=== PATIENT | female | born 1955 | race Caucasian/White ===

== ENCOUNTER 2023-07-02 14:56 | Emergency (ER) | payer OTHER, SELFPAY ==
[2023-07-02 15:13] VITALS: BP 179/78; PULSE 110; RESP 20; TEMP 36.5; O2SAT 96; BMI 44.3
--- NOTE | 2023-07-02 16:11 | ED.GENADULT ---
HPI - General Adult General Date Seen: 07/02/23 Chief complaint: Abdominal Pain Stated complaint: Pain in lower stomach area, weak Time Seen by Provider: 07/02/23 15:40 History of Present Illness HPI narrative: 68-year-old female who has a past medical history including previous cholecystectomy, hysterectomy, prior bouts of diverticulitis, known periumbilical/ventral/incisional hernia, obesity, presenting to the ER today with her daughter and granddaughter for evaluation of abdominal pain. She has had a symptoms of intermittent abdominal pain and gas and bloating off and on since March. In March she did see her doctor and was put on empiric course of Cipro and Flagyl for possible diverticulitis. She completed 8 days of antibiotics and felt better. She was significantly improved for several days after but since then has been having mild intermittent symptoms of pain. She also has a history of IBS so wonders if some of her pain could be related to that. Since Monday she has had a significant increase in pain. Pain is affecting both of her lower quadrants. She initially felt bloated but now she is having more sharp stabbing pain. She is nauseous and has had multiple episodes of vomiting. No fever but she has had chills. She has got body aches and generalized weakness. No urinary symptoms. Bowel movements have not really been diarrhea or bloody. No known injury. She has a known hernia next or bellybutton but it is not painful or more swollen than normal. Related Data Previous Rx's Medication Instructions Recorded ciprofloxacin HCl 500 mg tablet 500 mg PO BID #28 tabs 07/02/23 (Cipro) ciprofloxacin HCl 500 mg tablet 500 mg PO Q12H #28 tabs 07/02/23 (Cipro) ketorolac 10 mg tablet 10 mg PO Q8H PRN pain #10 tabs 07/02/23 metronidazole 500 mg tablet 500 mg PO BID 14 days #28 tabs 07/02/23 metronidazole 500 mg tablet 500 mg PO Q12H #28 tabs 07/02/23 ondansetron 4 mg disintegrating 4 mg PO Q8H PRN nausea and 07/02/23 tablet vomiting #10 tabs Allergies Allergy/AdvReac Type Severity Reaction Status Date / Time Penicillins Allergy Verified 07/02/23 15:12 PFSH PFSH Social History Non-prescribed substance use: denies use Exam Narrative: Exam Narrative: Constitutional: Appears well-developed and well-nourished. Alert. Conversant. Non toxic. HENT: Head: Atraumatic. Nose: Nose normal. Mouth/Throat: Oral mucosa is clear and moist. no trismus. Pharynx normal. Tonsils symmetric. No tonsillar enlargement, erythema, or exudate. Eyes: Conjunctivae normal. EOM normal. Pupils equal, round, and reactive to light. No scleral icterus. Neck: Normal range of motion. Neck supple. No tracheal deviation present. Cardiovascular: Normal rate, regular rhythm. No gallop. No friction rub. No murmur heard. Symmetric radial artery pulses Pulmonary/Chest: Effort normal. No stridor. No respiratory distress. No wheezes. No rales. No rhonchi . No tenderness. Abdominal: Soft. Bowel sounds normal. No distension. She has a nontender soft mass adjacent to her umbilicus and in the upper portion of her left lower quadrant suspicious for a incisional or possibly umbilical hernia. No exam evidence for incarceration or strangulation.. LLQ and suprapubic> RLQ tenderness. Minimal epigastric tenderness. No right upper quadrant tenderness. Mild left upper quadrant tenderness. No CVA tenderness. No rebound. No guarding. Musculoskeletal: RUE: Normal range of motion. No tenderness. No deformity LUE: Normal range of motion. No tenderness. No deformity RLE: Normal range of motion. No edema. No tenderness. No deformity LLE: Normal range of motion. No edema. No tenderness. No deformity Neurological: Alert and oriented to person, place, and time. Normal strength. CN II-VII intact. No sensory deficit. GCS eye subscore is 4. GCS verbal subscore is 5. GCS motor subscore is 6. Normal coordination Skin: Skin is warm and dry. No rash noted. No pallor. Normal capillary refill. Psychiatric: Normal mood. Normal affect. Const: Vital Signs, click to edit/add: Vital Signs - 24 hr 07/02/23 15:13 Temperature 97.7 F Pulse Rate [Pulse Oximeter] 110 H Respiratory Rate 20 Blood Pressure [Ri ght Forearm] 179/78 H Pulse Oximetry 96 Oxygen Delivery Me thod Room Air Course Vital Signs Vital signs: Initial Vital Signs Temperature 97.7 F 07/02/23 15:13 Temperature Source Temporal Artery Scan 07/02/23 15:13 Pulse Rate 110 H 07/02/23 15:13 Respiratory Rate 20 07/02/23 15:13 Blood Pressure 179/78 H 07/02/23 15:13 Blood Pressure Mean 111 H 07/02/23 15:13 Blood Pressure Position Sitting 07/02/23 15:13 Pulse Oximetry 96 07/02/23 15:13 Oxygen Delivery Method Room Air 07/02/23 15:13 Vital Signs Temperature 97.7 F 07/02/23 15:13 Pulse Rate 110 H 07/02/23 15:13 Respiratory Rate 20 07/02/23 15:13 Blood Pressure 179/78 H 07/02/23 15:13 Pulse Oximetry 96 07/02/23 15:13 Oxygen Delivery Method Room Air 07/02/23 15:13 Temperature 97.7 F 07/02/23 15:13 Pulse Rate 110 H 07/02/23 15:13 Respiratory Rate 20 07/02/23 15:13 Blood Pressure 179/78 H 07/02/23 15:13 Pulse Oximetry 96 07/02/23 15:13 Oxygen Delivery Method Room Air 07/02/23 15:13 Medical Decision Making MDM Narrative Medical decision making narrative: Presented to the Emergency Department with bilateral lower quadrant abdominal pain. The differential diagnosis of abdominal pain includes: Appendicitis, Bowel Obstruction, Ulcer, Ischemia, Cholecystitis, Diverticulitis, Pancreatitis, UTI, kidney stone, Enteritis/Colitis, amongst many other etiologies. Laboratory workup shows mild leukocytosis. Urinalysis reassuring. CT scan confirms acute sigmoid diverticulitis without any evidence for surgical complications such as perforation, abscess, free air, stricture, obstruction. She is hemodynamically stable and pain is improved after treatment here in the ER. With reasonable clinical complaints I think she is safe for management in outpatient setting with oral antibiotics. Will start her back on Cipro and Flagyl. The patient also understands that if they worsen, they should return to the ER right away. I discussed the expected course of the diagnosis and answered the patient's questions. return precautions discussed. Zofran and Toradol for symptomatic relief. Lab Data Labs: Lab Results 07/02/23 07/02/23 Range/Units 16:30 18:07 WBC 13.11 H (4.50-11.00) K/uL RBC 5.30 H (4.00-5.20) m/uL Hgb 14.0 (12.0-16.0) gm/dL Hct 44.6 (33.0-51.0) % MCV 84 (80-100) fL MCH 26 (26-34) pg MCHC 31 L (32-36) gm/dL RDW Coeff of Shawna 14.1 (11.5-15.5) % Plt Count 282 (140-440) K/uL Neut % (Auto) 78.2 H (42.0-72.0) % Lymph % (Auto) 15.0 L (20-44) % [place] % (Auto) 6.0 (0.0-11.0) % Eos % (Auto) 0.4 (0.0-7.0) % Baso % (Auto) 0.2 (0.0-3.0) % Neut # (Auto) 10.30 H (1.7-7.0) K/uL Lymph # (Auto) 2.00 (0.90-2.90) K/uL [place] # (Auto) 0.80 (0.00-0.90) K/UL Eos # (Auto) 0.10 (0.00-0.50) K/uL Baso # (Auto) 0.00 (0.00-0.30) K/uL Abs Immat Gran (auto) 0.00 (0.00-0.30) K/uL Imm/Tot Granulo (auto) 0.2 % Sodium 136 (135-149) mmol/L Potassium 3.8 (3.6-5.1) mmol/L Chloride 103 (96-114) mmol/L Carbon Dioxide 25 (20-32) mmol/L Anion Gap 8 (7-15) mEq/L BUN 9 (7-30) mg/dL Creatinine 0.7 (0.5-1.5) mg/dL Estimated Creat Clear 45.16 Estimated GFR 95 ml/min Glucose 105 (60-115) mg/dL Lactate 1.2 (0.5-1.9) mmol/L Calcium 9.6 (8.4-10.6) mg/dL Total Bilirubin 0.8 (0.1-1.5) mg/dL AST 26 (12-35) U/L ALT 15 (4-35) U/L Alkaline Phosphatase 144 (40-150) U/L Total Protein 8.0 (6.0-8.3) g/dL Albumin 4.4 (3.3-5.0) g/dL Lipase 62 (23-300) U/L Urine Color Yellow (Yellow) Urine Appearance Clear (Clear) Urine pH 6.0 (5.0-8.5) Ur Specific [place] 1.015 (1.000-1.030) Urine Protein Negative (Negative) Urine Glucose (UA) Negative (Negative) Urine Ketones Negative (Negative) Urine Blood Negative (Negative) Urine Nitrite Negative (Negative) Urine Bilirubin Negative (Negative) Urine Urobilinogen 0.2 (0.2-1.0) Ur Leukocyte Esterase Negative (Negative) Urine RBC 0-2 (0-2) Urine WBC 0-2 (0-5) Ur Squamous Epith Cells Moderate A (None-Few) Urine Bacteria Moderate A (None) Discharge Plan Discharge Clinical Impression: Diverticulitis Patient Disposition: Home, Self-Care Condition: Stable Instructions: Diverticulitis (ED), Diverticulitis (DC) Additional Instructions: As we discussed, please start on antibiotics with her next dose tomorrow morning. That should take few days for diverticulitis to get better. Even if he get better complete the entire course of antibiotics. Follow-up with your regular doctor for recheck within 1 week. If you have worsening symptoms, for instance worsening pain, high fever, bloody stools, uncontrolled vomiting, weakness, return to the ER right away Prescriptions: New ondansetron 4 mg tablet,disintegrating 4 mg PO Q8H PRN (Reason: nausea and vomiting) Qty: 10 0RF ciprofloxacin HCl [Cipro] 500 mg tablet 500 mg PO BID Qty: 28 0RF metronidazole 500 mg tablet 500 mg PO BID 14 Days Qty: 28 0RF ciprofloxacin HCl [Cipro] 500 mg tablet 500 mg PO Q12H Qty: 28 0RF metronidazole 500 mg tablet 500 mg PO Q12H Qty: 28 0RF ketorolac 10 mg tablet 10 mg PO Q8H PRN (Reason: pain) Qty: 10 0RF Stand Alone Forms: My[facility] Info Instructions
--- NOTE | 2023-07-02 16:14 | CRLHL7_ITS ---
For Patients: As a result of the Century Cures Act, medical imaging exams and procedure reports are released immediately into your electronic medical record. You may view this report before your referring provider. If you have questions, please contact your health care provider. INDICATION: Lower abdominal pain TECHNIQUE: CT abdomen and pelvis acquired with 122 mL Isovue 370 IV contrast. COMPARISON: None FINDINGS: Lower chest: Unremarkable. Liver: Unremarkable. Spleen: Unremarkable. Pancreas: Unremarkable. Gallbladder and bile ducts: Status post cholecystectomy. There is no biliary enlargement. Kidneys: Unremarkable. Adrenal glands: Unremarkable. GI tract: Small hiatal hernia. There is inflammatory pericolonic stranding at the descending colon/sigmoid colon junction, images 103 through 124 of series 2, compatible with acute, uncomplicated diverticulitis. No evidence drainable abscess/free air. Appendix is not definitively seen. No evidence to suggest acute appendicitis Vascular structures: Negative. No sign of aneurysm. Lymph nodes: Unremarkable. Miscellaneous: Periumbilical anterior abdominal wall defect is present, containing only fat. This measures about 4.5 cm transversely. No free air or significant free fluid. Pelvic Organs: Small uterus versus status post hysterectomy, correlation with clinical/surgical history recommended. Otherwise, unremarkable. Bones: Multilevel degenerative disc disease and facet hypertrophic change. No acute/aggressive osseous lesions. IMPRESSION: 1. Acute, uncomplicated diverticulitis at the junction of descending with sigmoid colon. No other acute abnormality. 2. Periumbilical fat containing anterior abdominal wall defect. 3. Additional chronic and postoperative change, as above. Please note that all CT scans at this facility use dose modulation, iterative reconstruction, and/or weight-based dosing when appropriate to reduce radiation dose to as low as reasonably achievable. Dictated by Bob Silva MD @ 07/02/2023 6:04:44 PM (Electronically Signed)
[2023-07-02] MEDS: 0.9 % SODIUM CHLORIDE 1000 ml 1,000 ML IV (16:40)
[2023-07-02] MEDS: ONDANSETRON 2 MG/ML inj 4 MG IVP (16:40)
[2023-07-02] MEDS: KETOROLAC 15 MG/ML inj IVP (16:40)
[2023-07-02 16:44] LABS: Lactate* 1.2 mmol/L (0.5-1.9)
[2023-07-02 16:50] LABS: Basophils Percent Auto 0.2 % (0.0-3.0); Eosinophils Percent Auto 0.4 % (0.0-7.0); Hematocrit 44.6 % (33.0-51.0); Immature Granulocytes Pct Auto 0.2 %; Mean Corpuscular HGB Conc 31 gm/dL (32-36); Mean Corpuscular Hemoglobin 26 pg (26-34); Mean Corpuscular Volume 84 fL (80-100); Neutrophils Percent Auto 78.2 % (42.0-72.0); Platelet Count* 282 K/uL (140-440); RDW Coefficient of Variation % 14.1 % (11.5-15.5); White Blood Count* 13.11 K/uL (4.50-11.00)
[2023-07-02 17:09] LABS: Albumin* 4.4 g/dL (3.3-5.0); Chloride* 103 mmol/L (96-114)
[2023-07-02 17:10] LABS: Potassium* 3.8 mmol/L (3.6-5.1); Slide Review Reflex No; Sodium* 136 mmol/L (135-149)
[2023-07-02 17:12] LABS: Alkaline Phosphatase* 144 U/L (40-150); Anion Gap 8 mEq/L (7-15); Aspartate Amino Transferase* 26 U/L (12-35); Bilirubin Total* 0.8 mg/dL (0.1-1.5); Blood Urea Nitrogen* 9 mg/dL (7-30); Carbon Dioxide* 25 mmol/L (20-32); Creatinine* 0.7 mg/dL (0.5-1.5); Est. Creatinine Clearance* 45.16; Estimated Glomerular Filt Rate 95 ml/min
[2023-07-02 17:13] LABS: Alanine Aminotransferase* 15 U/L (4-35); Calcium* 9.6 mg/dL (8.4-10.6); Glucose* 105 mg/dL (60-115); Lipase* 62 U/L (23-300)
[2023-07-02 18:30] LABS: Appearance Urine Clear (Clear); Bilirubin Urine Negative (Negative); Blood Urine Negative (Negative); Color Urine Yellow (Yellow); Glucose Urine Negative (Negative); Ketones Urine Negative (Negative); Leukocyte Esterase Urine Negative (Negative); Nitrite Urine Negative (Negative); Protein Urine Negative (Negative); Specific Gravity Urine 1.015 (1.000-1.030); Urobilinogen Urine 0.2 (0.2-1.0)
[2023-07-02 18:39] LABS: Bacteria Urine Moderate; RBC Urine 0-2 (0-2); Squamous Epithelial Cell Urine Moderate (None-Few); WBC Urine 0-2 (0-5)
[2023-07-02] MEDS: metroNIDAZOLE 500 MG TABLET PO (18:50)
[2023-07-02] MEDS: CIPROFLOXACIN 500 MG TABLET PO (18:50)
== END 2023-07-02 19:26 | disposition home or self-care (01) ==
LOC: ED 19:23
PROVIDERS: Emergency Provider Emergency Medicine
DX: K57.32 Diverticulitis of large intestine without perforation or abscess without bleeding (principal)
CPT/HCPCS: 36415; 74177; 80053; 81001; 83605; 83690; 85025; 87086; 96374; 96375; 99284; A9270; J1885; J2405; J7030; Q9967

== ENCOUNTER 2025-02-05 06:32 | Emergency (ER) | payer MEDICARE, SELFPAY ==
--- OUTSIDE RECORDS SUMMARY | 2009-09-17 08:52 | XMS_ITS | Encounter Summary ---
Author Organization [place] Address [address] [facility] [place] [address] Care Team Providers Care Attending Ambulatory Care Name Role Phone Destiney Taylor MD Unavailable [phone] Kai Castaneda MD Primary Care Provider [phone] Encounter Details Date Type Department Care Team (Late st Contact Info) Description 09/17/2009 7:52 AM WAREHOUSE SHIPPING SUPERVISOR [facility] in [address] [address] Kai Castaneda MD [address] [place] [address] Social History Tobacco Use Types Packs/Day Years Used Date Smoking Tobacco: Former Smokeless Tobacco: Never Comments:smoked 30 years ago Alcohol Use Standard Drinks/Week Comments No 0 (1 standard drink = 0.6 oz pur e alcohol) Comments No Sex and Gender Information Value Date Recorded Sex Assigned at Female 07/13/2020 9:19 AM WAREHOUSE SHIPPING SUPERVISOR Legal Sex Female 3:56 AM WAREHOUSE SHIPPING SUPERVISOR Gender Identity Female 07/13/2020 9:19 AM WAREHOUSE SHIPPING SUPERVISOR Sexual Orientation Straight 07/13/2020 9 :19 AM WAREHOUSE SHIPPING SUPERVISOR 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
--- OUTSIDE RECORDS SUMMARY | 2009-09-23 11:51 | XMS_ITS | Encounter Summary ---
Author Organization [place] Address [address] [facility] [place] [address] Care Team Providers Care Wrapping Clerk Name Role Phone Destiney Taylor MD Unavailable [phone] Kai Castaneda MD Primary Care Provider [phone] Encounter Details Date Type Department Care Team (Late st Contact Info) Description 09/23/2009 10:51 AM SUPERVISOR LEAF [employer]ING [employer]RICATION [facility] in [address] [address] Kai Castaneda MD [address] [place] [address] Social History Tobacco Use Types Packs/Day Years Used Date Smoking Tobacco: Former Smokeless Tobacco: Never Comments:smoked 30 years ago Alcohol Use Standard Drinks/Week Comments No 0 (1 standard drink = 0.6 oz pur e alcohol) Comments No Sex and Gender Information Value Date Recorded Sex Assigned at Female 07/13/2020 9:19 AM SUPERVISOR [employer] Legal Sex Female 3:56 AM SUPERVISOR [employer] Gender Identity Female 07/13/2020 9:19 AM SUPERVISOR [employer] Sexual Orientation Straight 07/13/2020 9 :19 AM SUPERVISOR [employer] 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
--- OUTSIDE RECORDS SUMMARY | 2009-09-29 11:17 | XMS_ITS | Encounter Summary ---
Author Organization [place] Address [address] [facility] [place] [address] Care Team Providers Care Boatwright Name Role Phone Destiney Taylor MD Unavailable [phone] Kai Castaneda MD Primary Care Provider [phone] Encounter Details Date Type Department Care Team (Late st Contact Info) Description 09/29/2009 10:17 AM GRINDER LAP [facility] in [address] [address] Destiney Taylor MD [facility] [address] [place] [address] Social History Tobacco Use Types Packs/Day Years Used Date Smoking Tobacco: Former Smokeless Tobacco: Never Comments:smoked 30 years ago Alcohol Use Standard Drinks/Week Comments No 0 (1 standard drink = 0.6 oz pur e alcohol) Comments No Sex and Gender Information Value Date Recorded Sex Assigned at Female 07/13/2020 9:19 AM GRINDER LAP Legal Sex Female 3:56 AM GRINDER LAP Gender Identity Female 07/13/2020 9:19 AM GRINDER LAP Sexual Orientation Straight 07/13/2020 9: 19 AM GRINDER LAP 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 POSTOPERATIVE DIAGNOSIS: Menorrhagia, myomatous uterus, pelvic pain plus extensive pelvic adhesions. OPERATION: Operative laparoscopy, lysis of adhesions, exploratory laparotomy, subtotal abdominal hysterectomy. SURGEON: Destiney Taylor M.D. SALES SUPPORT ENGINEER: Rolf Cook M.D. ANESTHESIA: General endotracheal. ESTIMATED BLOOD LOSS: 350 milliliters. COMPLICATIONS: None. INDICATIONS FOR SURGERY: The patient is a 54-year-old premenopausal female status post tubal ligation who has a history of abdominal pain. A CT scan showed an enlarged uterus. She also had heavy and painful menses. She had about a 10 centimeter size fundal myoma on ultrasound. After discussion regarding risks, benefits and alternatives she would like to proceed with laparoscopy supracervical hysterectomy. She did understand the risk of needing a laparotomy should laparoscopy be unsuccessful. OPERATIVE FINDINGS: She about a 12 centimeter fundal myoma. There were extensive adhesions between the omentum and the fundus of the uterus. Left pelvic sidewall and uterus with extensive adhesions in this area as well. The posterior cul-de-sac was nearly ablated with adhesions. Both ovaries were adhered to the posterior cardinal ligament. As I was unable to visualize the left pelvic sidewall safely via laparoscopy, the decision was made to proceed to open procedure. Please see findings below. CORRECTED COPY OPERATIVE REPORT IN DETAIL: After administration of general anesthesia, the patient was placed in the low lithotomy position, prepped and draped in the usual sterile fashion. A Tse catheter was placed. The V-cup uterine manipulator was placed into the uterus and the perineum draped off from the abdomen above. The umbilical area was infiltrated with 0.25% Marcaine without epinephrine. A curvilinear infraumbilical incision was made and carried down to the fascia. The fascia was incised to approximately 1 1/2 centimeters in size and the peritoneum incised. The LESS triport was placed into the abdomen and the sleeve was pulled up tight. The deflecting tip Olympus camera was placed into the triport and with findings as noted above. The uterus was elevated cephalad. The omental adhesions were taken down using the Gyrus cutting forceps along the left aspect of the uterus. There were omental adhesions to the anterior abdominal wall which were lysed using the Gyrus cutting forceps. Once the adhesions were taken down off the fundus, it was then apparent that I could not safely visualize the left pelvic sidewall. There were extensive dense adhesions between the left portion of the uterus and the pelvic sidewall. The decision was made to proceed with exploratory laparotomy. The V-cup uterine manipulator was removed from the uterus. A midline incision was made down to the fascia. The fascia was incised superiorly inferiorly to the pubic symphysis. The rectus muscles were in the midline and the peritoneum incised superiorly and inferiorly to the bladder margin. A Mare self-retaining retractor was placed into the field. The remainder of the left pelvic sidewall adhesions were taken down sharply using Gyrus cutting forceps. A myomectomy was then performed. The large fundal myoma was excised and the base cauterized using LigaSure. Once the myoma was removed, I was then able to safely identify the round ligament on the left side. It was clamped, fulgurated and cut using the Gyrus. The uteroovarian vessels were clamped, fulgurated and cut using the Gyrus. The left cardinal ligaments were sequentially clamped, fulgurated and cut using the ligature. The bladder flap was created using sharp dissection at this time using the Gyrus laparoscopic cutting forceps. The cervicouterine junction was then incised sharply. The uterus was removed. The cervix was oversewn using 0 chromic continuous locking suture. The pelvis was thoroughly inspected and was hemostatic. The peritoneum was closed using 2-0 Vicryl continuous suture. The rectus muscles were inspected and were hemostatic. The fascia was closed using #1 Vicryl continuous suture. The subcutaneous layer was irrigated and closed in two layers of 3-0 chromic. It was at this time that I was informed that a malleable was missing from the count. Abdominal films were taken of the pelvis and upper abdomen to the level of the CORRECTED COPY diaphragm. There was no evidence of the malleable present. The rest of the sponge and needle counts were correct. The skin edges were reapproximated using 4-0 Vicryl continuous subcuticular suture. There were otherwise no complications. The patient and her family were informed regarding the surgical count discrepancy and the surgical site x-ray films taken. A second skilled surgeon was necessary due to the patient's obesity; her BMI is 49, and the extensive pelvic adhesions. Destiney Taylor M.D. JESSEE/[id number]/[id number] DER LAP DER LAP documented in this encounter Plan of Treatment Not on file documented as of this encounter Visit Diagnoses Not on filedocumented in this encounter Care Teams Boatwright Relationship Specialty Start Date End Date Destiney Taylor MD PCP - Obstetrics/Gynecology 09/28/06 Kai Castaneda MD [facility] [address] [facility] [address] [place] [address] PCP - General 09/17/09 08/15/13 documented as of this encounter
--- OUTSIDE RECORDS SUMMARY | 2010-04-18 17:29 | XMS_ITS | Encounter Summary ---
Author Organization [place] Address [address] [facility] [place] [address] Care Team Providers Care Process Safety Management Engineer Name Role Phone Destiney Taylor MD Unavailable [phone] Kai Castaneda MD Primary Care Provider [phone] Encounter Details Date Type Department Care Team (Late st Contact Info) Description 04/18/2010 5:29 PM CDT [facility] in [facility] [address] [place] [address] Vickie Wells MD [facility] [address] [place] [id number] Social History Tobacco Use Types Packs/Day Years Used Date Smoking Tobacco: Former Smokeless Tobacco: Never Comments:smoked 30 years ago Alcohol Use Standard Drinks/Week Comments No 0 (1 standard drink = 0.6 oz pur e alcohol) Comments No Sex and Gender Information Value Date Recorded Sex Assigned at Female 07/13/2020 9:19 AM ETHANOL MAINTENANCE MECHANIC Legal Sex Female 3:56 AM ETHANOL MAINTENANCE MECHANIC Gender Identity Female 07/13/2020 9:19 AM ETHANOL MAINTENANCE MECHANIC Sexual Orientation Straight 07/13/2020 9: 19 AM ETHANOL MAINTENANCE MECHANIC 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 She states it is still a little bit sore occasionally, but much improved. She does have some nausea and she thinks this is due to not eating for over 24 hours. She just feels an empty feeling. She reports that the Zofran helps a little bit but not enough and she is eager to advance her diet from liquids, which do not increase her pain. She has not had any blood stools. In fact she has had no stools since admission. She had one small emesis last night but none since then. Otherwise she has been stable and has no new complaints. REVIEW OF SYSTEMS: Respiratory, skin, cardiovascular and musculoskeletal are negative. OBJECTIVE: Vital signs: Temp: 97.8. Heart rate: 75. Blood pressure: 103/56. Respiratory rate: 16. 98% on room air. Weight: 298 lb. BMI is 151. She had 1.6 liters in, 350 milliliters out plus 100 of emesis. General: Alert, lying in bed in no acute distress. She sits up easily and is conversational. Her mucous membranes are moist. Heart: Regular in rate and rhythm with no murmurs, rubs or gallops. Lungs: Clear to auscultation bilaterally with good air exchange. Abdomen: Obese, soft, nontender except for mild epigastric tenderness which is in a new location with no rebound or guarding. She has normal to active bowel sounds of normal pitch. There are no masses. She has no peripheral edema. She has a peripheral IV in place and no noted skin breakdown. LABS: White count 9.6, hemoglobin is 10.7, which is stable, 77 neutrophils, 14 lymphocytes, electrolytes are within normal limits. Creatinine is normal at 0.75. Calcium is 8.6. IMAGING: There is no new imaging study since yesterday's CT scan which showed acute sigmoid diverticulitis with no free air and a small ill-defined fluid collection adjacent to the involved area that could have been an early evolving abscess versus free fluid. ASSESSMENT/PLAN: 1. Acute sigmoid diverticulitis. The patient seems to have responded very well to antibiotics and intravenous fluids, will continue these for one more day intravenous. We will try to advance her diet to full liquids and see how she does with that. I am going to change her anti-nausea medicine to Compazine and she will continue on Timentin for antibiotic. We will repeat a CT scan if she worsens clinically or shows any signs of actual abscess formation, but not today unless there is an acute change. Will continue to follow and consider surgery consultation as needed. 2. History of hypertension. This has been well controlled. She is on her oral medications and doing well. 3. Depression with anxiety, stable on her home Lexapro. 4. History of skin yeast rash in the groin which was not noted today. She will continue her Lotrimin cream twice daily. 5. Gastroesophageal reflux disease, continue omeprazole. Yi Jack M.D. ED/mp cc: * Tere Tillman MD - 04/19/2010 6:25 AM CDT HISTORY AND PHYSICAL DATE OF ADMISSION: 04/18/2010 CHIEF COMPLAINT: Abdominal pain. HISTORY OF PRESENT ILLNESS: This is a 55-year-old female with a history of diverticulitis requiring hospitalization back in 1999 but with other episodes of outpatient antibiotics. She presents with ongoing abdominal pain that has been intermittent throughout the whole summer. Over the past 2 days however she has had worsened pain bilaterally worse in the left than the right. She describes it as just a tenderness, bloating feeling, occasionally stabbing and cramping. On the first day of the worsened pain she did have some diarrhea, a little bit of blood but this was related to hemorrhoid. She otherwise had a normal bowel movement yesterday and no bowel movement yet today. She feels particularly gassy. She did have an emesis, no blood or coffee ground emesis. She has felt sweats and chills but no measured temperature. Patient denies any urinary symptoms and no vaginal symptoms. She has not been seen for this particularly episode in the clinic to date. PAST MEDICAL HISTORY: Significant for hypertension, depression with anxiety, diverticulitis with previous hospitalizations and several outpatient therapies. She has not history of diabetes, coronary disease or cerebrovascular accident or asthma. PAST SURGICAL HISTORY: She has had radical resection of her tonsils and pillars. Tubal times two with tube removal. Last colonoscopy was done 2001 in [place] which apparently was normal except for diverticulosis. She has had a supracervical abdominal hysterectomy 09/29/2009. Patient is a 5, para 3-0-0-2-3 with 2 ectopic pregnancies. SOCIAL HISTORY: She is and has 3 children. She states she has never used tobacco, although her chart says she smoked 30 years ago. She uses very rare alcohol and no other illicit drug use. She has two younger girls with her today. FAMILY HISTORY: Significant for diabetes in father, maternal uncle, and brother. There is coronary disease in brothers. Mom is due to lung cancer and a nonsmoker. Her father is alive. She has 4 sisters alive. One brother and 4 brothers alive. Patient works doing housekeeping. ALLERGIES: To PENICILLIN. CURRENT MEDICATIONS: Include lisinopril 40 milligrams daily. Urea 40% cream for dry skin. Lexapro 20 milligrams daily. Patient currently does not take an aspirin. REVIEW OF SYSTEMS: CONSTITUTIONAL: As above. Weight has been stable. Eyes are negative. ENT: Negative. RESPIRATORY: Negative. Patient is obese but states she has had a sleep study which was negative. She does snore loudly. CARDIAC: Negative. GASTROINTESTINAL: As above. GENITOURINARY: Negative. MUSCULOSKELETAL: Negative. NEURO: Negative. PSYCH: Stable. HEM/LYMPH: Negative. ENDOCRINE: Negative. PHYSICAL EXAMINATION: VITALS: Blood pressure 128/79. Pulse 111. Respirations 14. Temperature 98.8. 02 saturation 98% on room air. At that time that she came in her pain level was 8 out of 10 and it now is markedly improved. GENERAL: Pleasant female obese in no apparent distress. She is able to move around on the gurney without much assistance. She does not appear uncomfortable. EYES: Without injection. Extraocular muscles intact. Tympanic membranes are normal. Oropharynx is moist. No erythema or exudate. NECK: Without adenopathy. HEART: Normal S1 and S2. LUNGS: Clear, normal respiratory effort. ABDOMEN: Active bowel sounds, soft, obese, mild tenderness in the left lower quadrant and suprapubic region. There are no masses, no rebound or guarding. LOWER EXTREMITIES: Without edema. SKIN: Reveals a little bit of erythema in the intertriginous area primarily in the left groin. LABORATORY DATA: UA is negative. WBC is 11.9 with 76% neutrophils. Hemoglobin is 12.4. Platelets 340 K/uL. Metabolic panel is normal. LFTs are normal. Lipase is 38. CT (computed tomography) scan of the abdomen showed acute sigmoid diverticulitis, no evidence for extraluminal air, small ill-defined fluid collection adjacent to the involved sigmoid colon, free fluid versus evolving abscess, no well defined abscess at this time. Small amount of free fluid dependently in the pelvis. Also a small hiatal hernia. ASSESSMENT: 1. Diverticulitis with possibility of evolving abscess not defined at this time. Patient will be started on Timentin 3.1 grams IV every 6 hours, IV fluids, pain medicine and antinausea medicine. 2. Hypertension, controlled. Continue her oral medications and just clear liquids for now. 3. Depression with anxiety, stable on Lexapro. 4. Skin yeast rash. Will start her on Lotrimin cream twice a day. 5. GERD (gastroesophageal reflux disease) new which the patient will be started on omeprazole 20 milligrams daily. Will follow her clinically and if anything worsens will need to repeat a CT (computed tomography) scan and consider consulting surgery if the actual abscess evolves. Patient is comfortable and aware of the plan. She is a full code. Tere Tillman M.D. AAD/dmd cc: documented in this encounter Plan of Treatment Not on file documented as of this encounter Visit Diagnoses Not on filedocumented in this encounter Care Teams Process Safety Management Engineer Relationship Specialty Start Date End Date Destiney Taylor MD PCP - Obstetrics/Gynecology 09/28/06 Kai Castaneda MD [facility] [address] [facility] [address] [place] [address] PCP - General 09/17/09 08/15/13 documented as of this encounter
--- OUTSIDE RECORDS SUMMARY | 2010-05-13 11:17 | XMS_ITS | Encounter Summary ---
Author Organization [place] Address [address] [facility] [place] [address] Care Team Providers Care Quote Clerk Name Role Phone Destiney Taylor MD Unavailable [phone] Kai Castaneda MD Primary Care Provider [phone] Encounter Details Date Type Department Care Team (Late st Contact Info) Description 05/13/2010 11:17 AM T [facility] in [address] [address] Kai Castaneda MD [address] [place] [address] Social History Tobacco Use Types Packs/Day Years Used Date Smoking Tobacco: Former Smokeless Tobacco: Never Comments:smoked 30 years ago Alcohol Use Standard Drinks/Week Comments No 0 (1 standard drink = 0.6 oz pur e alcohol) Comments No Sex and Gender Information Value Date Recorded Sex Assigned at Female 07/13/2020 9:19 AM FISHER CLAM Legal Sex Female 3:56 AM FISHER CLAM Gender Identity Female 07/13/2020 9:19 AM FISHER CLAM Sexual Orientation Straight 07/13/2020 9 :19 AM FISHER CLAM 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
--- OUTSIDE RECORDS SUMMARY | 2010-06-03 10:31 | XMS_ITS | Encounter Summary ---
Author Organization [place] Address [address] [place] [address] Care Team Providers Care Medical Record Transcriber Name Role Phone Destiney Tyalor MD Unavailable [phone] Kai Castaneda MD Primary Care Provider [phone] Encounter Details Date Type Department Care Team (Late st Contact Info) Description 06/03/2010 10:31 AM T [facility] in [address] [address] Rolf Mazariegos MD [facility] [address] [place] [address] [address] [place] [address] Social History Tobacco Use Types Packs/Day Years Used Date Smoking Tobacco: Former Smokeless Tobacco: Never Comments:smoked 30 years ago Alcohol Use Standard Drinks/Week Comments No 0 (1 standard drink = 0.6 oz pur e alcohol) Comments No Sex and Gender Information Value Date Recorded Sex Assigned at Female 07/13/2020 9:19 AM PLASTIC TOP ASSEMBLER Legal Sex Female 3:56 AM PLASTIC TOP ASSEMBLER Gender Identity Female 07/13/2020 9:19 AM PLASTIC TOP ASSEMBLER Sexual Orientation Straight 07/13/2020 9: 19 AM PLASTIC TOP ASSEMBLER 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
--- OUTSIDE RECORDS SUMMARY | 2011-03-03 11:15 | XMS_ITS | Encounter Summary ---
Author Organization [place] Address [address] [facility] [place] [address] Care Team Providers Care Cold Patcher Name Role Phone Destiney Taylor MD Unavailable [phone] Kai Castaneda MD Primary Care Provider Russell Chiang MD Unavailable [phone] Encounter Details Date Type Department Care Team (Late st Contact Info) Description 03/03/2011 11:15 AM CDT [facility] in [address] [address] Kai Castaneda MD [address] [place] [address] Social History Tobacco Use Types Packs/Day Years Used Date Smoking Tobacco: Former Smokeless Tobacco: Never Comments:smoked 30 years ago Alcohol Use Standard Drinks/Week Comments No 0 (1 standard drink = 0.6 oz pur e alcohol) Comments No Sex and Gender Information Value Date Recorded Sex Assigned at Female 07/13/2020 9:19 AM CARDIOTHORACIC PHYSIOTHERAPIST Legal Sex Female 3:56 AM CARDIOTHORACIC PHYSIOTHERAPIST Gender Identity Female 07/13/2020 9:19 AM CARDIOTHORACIC PHYSIOTHERAPIST Sexual Orientation Straight 07/13/2020 9: 19 AM CARDIOTHORACIC PHYSIOTHERAPIST 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
--- OUTSIDE RECORDS SUMMARY | 2011-03-29 11:00 | XMS_ITS | Encounter Summary ---
Author Organization [place] Address [address] [facility] [place] [address] Care Team Providers Care Battery Container Tester Name Role Phone Destiney Taylor MD Unavailable [phone] Kai Castaneda MD Primary Care Provider Russell Chiang MD Unavailable [phone] Encounter Details Date Type Department Care Team (Late st Contact Info) Description 03/29/2011 11:00 AM T [facility] in [address] [address] Kai Castaneda MD [address] [place] [address] Social History Tobacco Use Types Packs/Day Years Used Date Smoking Tobacco: Former Smokeless Tobacco: Never Comments:smoked 30 years ago Alcohol Use Standard Drinks/Week Comments No 0 (1 standard drink = 0.6 oz pur e alcohol) Comments No Sex and Gender Information Value Date Recorded Sex Assigned at Female 07/13/2020 9:19 AM LATEX FASHIONS DESIGNER Legal Sex Female 3:56 AM LATEX FASHIONS DESIGNER Gender Identity Female 07/13/2020 9:19 AM LATEX FASHIONS DESIGNER Sexual Orientation Straight 07/13/2020 9: 19 AM LATEX FASHIONS DESIGNER 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
--- OUTSIDE RECORDS SUMMARY | 2025-02-03 20:10 | XMS_ITS | Encounter Summary ---
Author Organization [facility] Address [address], [place] [address] Care Team Providers Care Electrical Controls Designer Name Role Phone Hollie Nolen PA-C Primary Care Provider [phone] Reason for Visit * Reason Comments QUESTIONS, GENERAL Entered automaticall y based on patient selection in [place]. Encounter Details Date Type Department Care Team (Late st Contact Info) Description 02/03/2025 8:10 PM CDT E-Visit [facility] [address] [place] [phone] Hollie Nolen PA-C [id number] [place] [id number] Dx: Abdominal pain, generalized (Primary Dx) Social History Tobacco Use Types Packs/Day Years Used Date Smoking Tobacco: Never Smokeless Tobacco: Never Alcohol Use Standard Drinks/Week Comments Never 0 (1 standard drink = 0.6 oz pur e alcohol) PHQ-2 Answer Date Recorded PHQ-2 Score 4 02/04/2025 Comments No Sex and Gender Information Value Date Recorded Sex Assigned at Female 09/13/2022 10:09 AM DIRECTOR OF PUPIL PERSONNEL PROGRAM Legal Sex Female 6:14 PM CDT Gender Identity Female 09/13/2022 10:09 AM DIRECTOR OF PUPIL PERSONNEL PROGRAM Sexual Orientation Straight 09/13/2022 10 :09 AM DIRECTOR OF PUPIL PERSONNEL PROGRAM documented as of this encounter Nursing Notes * Kya Murry RN - 02/04/2025 10:02 AM CDT Hollie Nolen PA-C please advise. Kya Murry RN 02/04/2025, 10:02 AM documented in this encounter Plan of Treatment Not on file documented as of this encounter Results * (ABNORMAL) UA with Microscopic: Clean Catch (02/04/2025 2:44 PM CDT) Color Yellow 02/04/2025 3:07 PM CDT [facility] Clarity Clear Clear 02/04/2025 3:07 PM CDT [facility] Specific [place] 1.025 1.005 - 1.030 02/04/2025 3:07 PM CDT [facility] pH 6.0 5.0 - 8.0 02/04/2025 3:07 PM CDT [facility] Protein 30(A) Neg/Trace mg/dL 02/04/2025 3:07 PM CDT [facility] Glucose Negative Negative mg/dL 02/04/2025 3:07 PM CDT [facility] Ketones Trace(A) Negative mg/dL 02/04/2025 3:07 PM CDT [facility] Urobilinogen 1.0 <2.0 EU/dL 02/04/2025 3:07 PM CDT [facility] Bilirubin Small(A) Negative 02/04/2025 3:07 PM CDT [facility] Blood Negative Neg/Trace 02/04/2025 3:07 PM CDT [facility] Nitrite Negative Negative 02/04/2025 3:07 PM CDT [facility] Leukocyte Esterase Trace(A) Negative 02/04/2025 3:07 PM CDT [facility] Source Clean Catch 02/04/2025 3:07 PM CDT [facility] Urine URINE SPECIMEN COLLECTION, CLEAN CATCH / Unknown Non-blood Collection / Unknown 02/04/2025 2:44 PM CDT 02/04/2025 2:44 PM CDT us Hollie Nolen PA-C LAB_1 Final Resul t [facility] [address] [place] [address], [facility] * (ABNORMAL) Comprehensive Metabolic Panel (02/04/2025 2:[address] [facility]) Sodium 139 136 - 145 mmol/L 02/04/2025 7:03 PM [facility] Potassium 4.3 3.5 - 5.1 mmol/L 02/04/2025 7:03 PM [facility] Chloride 102 98 - 109 mmol/L 02/04/2025 7:03 PM [facility] CO2 27 20 - 29 mmol/L 02/04/2025 7:03 PM [facility] Anion Gap 10 6 - 16 mmol/L 02/04/2025 7:03 PM [facility] Calcium 10.3 8.4 - 10.4 mg/dL 02/04/2025 7:03 PM [facility] BUN 18 7 - 26 mg/dL 02/04/2025 7:03 PM [facility] Creatinine 1.13(H) 0.55 - 1.02 mg/dL 02/04/2025 7:03 PM [facility] Alkaline Phosphatase 166(H) 40 - 150 U/L 02/04/2025 7:03 PM [facility] AST (SGOT) 47(H) 10 - 40 U/L 02/04/2025 7:03 PM [facility] ALT (SGPT) 44 0 - 55 U/L 02/04/2025 7:03 PM [facility] Bilirubin, Total 0.4 0.2 - 1.2 mg/dL 02/04/2025 7:03 PM [facility] Protein, Total 8.4(H) 6.4 - 8.3 g/dL 02/04/2025 7:03 PM [facility] Albumin 3.3(L) 3.5 - 5.0 g/dL 02/04/2025 7:03 PM [facility] Glucose 122(H) 70 - 100 mg/dL 02/04/2025 7:03 PM [facility] Comment:The given reference range is for the fasting state. Non-fasting reference range for glucose is 70 - 180 mg/dL. GFR, Estimated 53(L) >60 mL/min/1. 73m2 02/04/2025 7:03 PM CDT [facility] Hours Fasting 0.1 8 - 12 Hours 02/04/2025 7:03 PM CDT [facility] Blood Venipuncture / Unknown 02/04/2025 2:44 PM CDT 02/04/2025 2:44 PM CDT Narrative [facility] - 02/04/2025 7:03 PM CDT The National Kidney Disease Education Program suggests measuring Cystatin C in patients with eGFRcrea of 45 to 59 ml/min/1.73^2 who do not have other markers of kidney damage (i.e. elevated urine Albumin/Creatinine Ratio or a prior Cystatin C confirming the presence of chronic kidney disease). us Hollie Nolen PA-C LAB_1 Final Resul t [facility] [address] documented in this encounter Visit Diagnoses Diagnosis Abdominal pain, generalized- Primary documented in this encounter Care Teams Electrical Controls Designer Relationship Specialty Start Date End Date Hollie Nolen PA-C [id number] [place] [address] PCP - General Physician Power System Dispatcher 08/18/22 documented as of this encounter
--- OUTSIDE RECORDS SUMMARY | 2025-02-04 14:00 | XMS_ITS | Encounter Summary ---
Author Organization [facility] Address [address] [place] [address] Care Team Providers Care City Planning Engineer Name Role Phone Hollie Nolen PA-C Primary Care Provider [phone] Reason for Referral * Procedure/Equipment (Routine) - Incomplete Specialty Diagnoses / Procedures Referred By Contac t Referred To Contact Diagnoses Lower abdominal pain Procedures CT Abd Pelvis W/WO IV Cont Hollie Nolen PA-C [address] [place] [address] Phone: tel: fax: Referral ID Status Reason Start Date Expiration Date V isits Requested Visits Authorized [id number] Incomplete 02/04/2025 05/06/2026 1 1 Reason for Visit * Reason Comments Medicare Annual Wellness Concerns Wondering about Dive rticulitis Health Maintanence Declined No Vaccines Encounter Details Date Type Department Care Team (Late st Contact Info) Description 02/04/2025 2:00 PM CDT Office Visit [facility] [address] [place] [phone] Hollie Nolen PA-C [address] [place], [place] [phone] Encounter for Medicare annual wellness exam (Primary Dx); Screen for colon cancer; Prediabetes; Hypertension, benign (HRC); Lower abdominal pain Social History Tobacco Use Types Packs/Day Years Used Date Smoking Tobacco: Never Smokeless Tobacco: Never Alcohol Use Standard Drinks/Week Comments Never 0 (1 standard drink = 0.6 oz pur e alcohol) PHQ-2 Answer Date Recorded PHQ-2 Score 4 02/04/2025 Comments No Sex and Gender Information Value Date Recorded Sex Assigned at Female 09/13/2022 10:09 AM ROBOTIC WELD TECHNICIAN Legal Sex Female 6:14 PM CDT Gender Identity Female 09/13/2022 10:09 AM ROBOTIC WELD TECHNICIAN Sexual Orientation Straight 09/13/2022 10 :09 AM ROBOTIC WELD TECHNICIAN documented as of this encounter Last Filed Vital Signs Vital Sign Reading Time Taken Comments Blood Pressure 91/62 02/04/2025 1:54 PM CDT Pulse 107 02/04/2025 1:54 PM CDT Temperature 36.9 C (98.5 F) 02/04/2025 1:54 PM CDT Respiratory Rate 14 02/04/2025 1:54 PM CDT Oxygen Saturation - - Inhaled Oxygen Concentration - - Weight 140.8 kg (310 lb 6 oz) 02/04/2025 1:54 PM CDT Height 162.6 cm (5' 4) 02/04/2025 1:54 PM CDT Body Mass Index 53.28 02/04/2025 1:54 PM CDT documented in this encounter Patient Instructions * Patient Instructions* Karen Alcazar LPN - 02/04/2025 2:00 PM CDT Annual Wellness Visit Summary Your care team is recommending the following tests, procedures or services. Some of these recommendations may not be fully covered by Medicare or your insurance. If you have questions, check with your insurance to determine coverage before completing these services. Health Maintenance Due Health Maintenance Due Topic Date Due ??? Colon Cancer Screening Plan Due Never done ??? Pneumococcal Vaccine 50+ Yrs (1 of 1 - PCV) Never done ??? Zoster/Shingles Vaccine (1 of 2) Never done ??? DTaP/Tdap/Td Vaccine (1 - Tdap) 07/31/2007 ??? RSV Vaccine (1 - Risk 60-74 years 1-dose series) Never done ??? Mammogram 09/25/2016 ??? Dexa Never done ??? COVID-19 Vaccine (2 - 2023- season) 2024 ??? Prediabetes: HGBA1C 10/03/2024 If your Medicare Welcome or Annual Wellness Visit is showing you are due in the above list, this will be updated after this visit. You had this completed today and are not due for another year. Thank you for coming in for your Medicare Wellness Visit. To make sure we are doing our best to meet your care needs, here are a few important reminders. We want to know your thoughts as we work together to create your care plan, including stopping and starting medications. When we work together on next steps, it's called shared decision making. If there is anything else you would like to discuss, please reach out or schedule a follow-up appointmentif needed. We are here to listen. We want to help you address any concerns you have about the cost of your medications. To find options for the most cost-effective medications near you, go to https://www.[employer]/hp/pharmacy/drug-cost/index.html You can also find more information in this handout. Health care can be complicated. Sometimes, it can help to share your health information with your family or caregivers. (Caregivers can be friends as well as family.) How much you share is up to you.Here is a helpful link: https://www.[employer]/blog/gryxry-klzd-hkmhx-benefits/ We care about nutrition, how much physical activity you get and how much stress, worry or sadness you have in your life. Please reach out to your care team if you have additional information to shareor would like more resources or support. documented in this encounter Plan of Treatment Scheduled Orders Name Type Priority Associated Diagnoses Orde r Schedule CT Abd Pelvis W/WO IV Cont Imaging New Routine Lower abdominal pain Expected: 02/04/2025 (Approximate), Expires: 02/04/2026 documented as of this encounter Results * (ABNORMAL) C-Reactive Protein (02/04/2025 2:44 PM CDT) C-Reactive Protein 18.9(H) 0.0 - 0.5 mg/dL 02/04/2025 7:03 PM CDT [facility] Blood Venipuncture / Unknown 02/04/2025 2:44 PM CDT 02/04/2025 2:44 PM CDT us Hollie Nolen PA-C LAB_1 Final Resul t Performing Organization Address City/State/[facility] Co de Phone Number [facility] [address] [place] [address], [facility] documented in this encounter Visit Diagnoses Diagnosis Encounter for Medicare annual wellness exam- Primary Screen for colon cancer Special screening for malignant neoplasms, colon Prediabetes Other abnormal glucose Hypertension, benign (HRC) Essential hypertension, benign Lower abdominal pain Abdominal pain, other specified site documented in this encounter Care Teams City Planning Engineer Relationship Specialty Start Date End Date Hollie Nolen PA-C [address] [place] [address] PCP - General Physician Backroom Associate 08/18/22 documented as of this encounter
--- OUTSIDE RECORDS SUMMARY | 2025-02-04 14:30 | XMS_ITS | Encounter Summary ---
Author Organization [facility] Address [address] [place] [address] Care Team Providers Care Real Estate Subagent Name Role Phone Holile Nolen PA-C Primary Care Provider [phone] Encounter Details Date Type Department Care Team (Latest Contact Info) Description 02/04/2025 2:30 PM CDT Lab Visit Laboratory at [address] [address] Hyperlipidemia, unspecified hyperlipidemia type (HRC); Gout, unspecified cause, unspecified chronicity, unspecified site; Prediabetes; Abdominal pain, generalized; Lower abdominal pain Social History Tobacco Use Types Packs/Day Years Used Date Smoking Tobacco: Never Smokeless Tobacco: Never Alcohol Use Standard Drinks/Week Comments Never 0 (1 standard drink = 0.6 oz pur e alcohol) PHQ-2 Answer Date Recorded PHQ-2 Score 4 02/04/2025 Comments No Sex and Gender Information Value Date Recorded Sex Assigned at Female 09/13/2022 10:09 AM CLINICAL RESEARCH ASSISTANT Legal Sex Female 6:14 PM CDT Gender Identity Female 09/13/2022 10:09 AM CLINICAL RESEARCH ASSISTANT Sexual Orientation Straight 09/13/2022 10 :09 AM CLINICAL RESEARCH ASSISTANT documented as of this encounter Plan of Treatment Not on file documented as of this encounter Procedures Procedure Name Priority Date/Time Associated Diagnosis Comments CBC AND DIFFERENTIAL PANEL Routine 02/04/2025 2:44 PM CDT Abdominal pain, generalized LIPID PANEL & DIRECT LDL (IF NEEDED) Routine 02/04/2025 2:44 PM CDT Hyperlipidemia, unspecified hyperlipidemia type (HRC) COMPLETE BLOOD COUNT-W/DIFF Routine 02/04/2025 2:44 PM CDT Abdominal pain, generalized UA WITH MICROSCOPIC Routine 02/04/2025 2 :44 PM CDT Abdominal pain, generalized COMPREHENSIVE METABOLIC PANEL Routine 02/04/2025 2:44 PM CDT Abdominal pain, generalized C-REACTIVE PROTEIN Routine 02/04/2025 2: 44 PM CDT Lower abdominal pain HGB A1C Routine 02/04/2025 2:44 PM CDT Prediabetes URIC ACID Routine 02/04/2025 2:44 PM CDT Gout, unspecified cause, unspecified chronicity, unspecified site UA MICRO Routine 02/04/2025 2:44 PM CDT Abdominal pain, generalized documented in this encounter Results * (ABNORMAL) Urine Microscopic Evaluation: Clean Catch (02/04/2025 2:44 PM CDT) Urine Culture Comment Urinalysis results do not meet criteria for urine culture reflex. 02/04/2025 3:07 PM CDT [facility] Red Blood Cells 0-3 0 - 3 /HPF 02/04/2025 3:07 PM CDT [facility] White Blood Cells 6-9(A) 0 - 5 /HPF 02/04/2025 3:07 PM CDT [facility] Bacteria Many(A) None Seen /HPF 02/04/2025 3:07 PM CDT [facility] Squamous Epithelial Cells Many(A) None Seen, Occasiona l, Few /HPF 02/04/2025 3:07 PM CDT [facility] Crystals, Amorphous Present(A) None Seen /HPF 02/04/2025 3:07 PM CDT [facility] Urine URINE SPECIMEN COLLECTION, CLEAN CATCH / Unknown Non-blood Collection / Unknown 02/04/2025 2:44 PM CDT 02/04/2025 2:44 PM CDT us Hollie Nolen PA-C LAB_1 Final Resul t [facility] [facility] [address] [place] [address], [facility] * (ABNORMAL) Complete Blood Count-W/Diff (02/04/2025 2:44 PM CDT) WBC 11.7(H) 3.5 - 10.5 x10(9)/L 02/04/2025 2:52 PM CDT [facility] [facility] RBC 4.97 3.90 - 5.03 x10(12)/L 02/04/2025 2:52 PM CDT [facility] [facility] Hemoglobin 12.9 12.0 - 15.5 g/dL 02/04/2025 2:52 PM CDT [facility] [place] [facility] HCT 41.4 34.9 - 44.5 % 02/04/2025 2:52 PM CDT [facility] [place] [facility] MCV 83.3 80.0 - 100.0 fL 02/04/2025 2:52 PM CDT [facility] [place] [facility] MCH 26.0(L) 27.6 - 33.3 pg 02/04/2025 2:52 PM CDT [facility] [facility] MCHC 31.2(L) 31.5 - 35.2 g/dL 02/04/2025 2:52 PM CDT [facility] [facility] RDW 13.8 11.9 - 15.5 % 02/04/2025 2:52 PM CDT [facility] [place] [facility] Platelets 454(H) 150 - 450 x10(9)/L 02/04/2025 2:52 PM CDT [facility] [facility] Neutrophil Absolute 7.7(H) 1.7 - 7.0 10(9)/L 02/04/2025 2:52 PM CDT [facility] [facility] Lymphocyte Absolute 2.9 1.0 - 4.8 10(9)/L 02/04/2025 2:52 PM CDT [facility] [facility] Monocyte Absolute 0.9 0.2 - 0.9 10(9)/L 02/04/2025 2:52 PM CDT [facility] [facility] Eosinophil Absolute 0.1 0.0 - 0.5 10(9)/L 02/04/2025 2:52 PM CDT [facility] [facility] Basophil Absolute 0.0 0.0 - 0.3 10(9)/L 02/04/2025 2:52 PM CDT [facility] [facility] Immature Granulocyte % 0.8(H) 0.0 - 0.5 % 02/04/2025 2:52 PM CDT [facility] [place] [facility] Blood Venipuncture / Unknown 02/04/2025 2:44 PM CDT 02/04/2025 2:44 PM CDT Hollie ALVARESC LAB_1 Final Resul t Performing Organization Address [facility]/ZIP Co de Phone Number [facility] [facility] [address] [place] [address], [facility] * (ABNORMAL) C-Reactive Protein (02/04/2025 2:44 PM CDT) C-Reactive Protein 18.9(H) 0.0 - 0.5 mg/dL 02/04/2025 7:[address] [facility] Blood Venipuncture / Unknown 02/04/2025 2:44 PM CDT 02/04/2025 2:44 PM CDT Hollie Nolen PA-C LAB_1 Final Resul t Performing Organization Address [facility] Co de Phone Number [facility] [address] [address] * (ABNORMAL) UA with Microscopic: Clean Catch (02/04/2025 2:44 PM CDT) Color Yellow 02/04/2025 3:07 PM CDT [facility] [facility] Clarity Clear Clear 02/04/2025 3:07 PM CDT [facility] [place] [facility] Specific [place] 1.025 1.005 - 1.030 02/04/2025 3:07 PM CDT [facility] [place] [facility] pH 6.0 5.0 - 8.0 02/04/2025 3:07 PM CDT [facility] [place] [facility] Protein 30(A) Neg/Trace mg/dL 02/04/2025 3:07 PM CDT [facility] [facility] Glucose Negative Negative mg/dL 02/04/2025 3:07 PM CDT [facility] [facility] Ketones Trace(A) Negative mg/dL 02/04/2025 3:07 PM CDT [facility] [facility] Urobilinogen 1.0 <2.0 EU/dL 02/04/2025 3:07 PM CDT [facility] [facility] Bilirubin Small(A) Negative 02/04/2025 3:07 PM CDT [facility] [facility] Blood Negative Neg/Trace 02/04/2025 3:07 PM CDT [facility] [facility] Nitrite Negative Negative 02/04/2025 3:07 PM CDT [facility] [facility] Leukocyte Esterase Trace(A) Negative 02/04/2025 3:07 PM CDT [facility] [place] [facility] Source Clean Catch 02/04/2025 3:07 PM CDT [facility] [place] [facility] Urine URINE SPECIMEN COLLECTION, CLEAN CATCH / Unknown Non-blood Collection / Unknown 02/04/2025 2:44 PM CDT 02/04/2025 2:44 PM CDT us Hollie Nolen PA-C LAB_1 Final Resul t [facility] [address] [place] [address], [facility] * (ABNORMAL) Comprehensive Metabolic Panel (02/04/2025 2:44 PM CDT) Sodium 139 136 - 145 mmol/L 02/04/2025 7:03 PM [facility] Potassium 4.3 3.5 - 5.1 mmol/L 02/04/2025 7:03 PM [facility] Chloride 102 98 - 109 mmol/L 02/04/2025 7:03 PM [facility] CO2 27 20 - 29 mmol/L 02/04/2025 7:03 PM [facility] Anion Gap 10 6 - 16 mmol/L 02/04/2025 7:03 PM [facility] Calcium 10.3 8.4 - 10.4 mg/dL 02/04/2025 7:03 PM [facility] BUN 18 7 - 26 mg/dL 02/04/2025 7:03 PM [facility] Creatinine 1.13(H) 0.55 - 1.02 mg/dL 02/04/2025 7:03 PM [facility] Alkaline Phosphatase 166(H) 40 - 150 U/L 02/04/2025 7:03 PM [facility] AST (SGOT) 47(H) 10 - 40 U/L 02/04/2025 7:03 PM [facility] ALT (SGPT) 44 0 - 55 U/L 02/04/2025 7:03 PM [facility] Bilirubin, Total 0.4 0.2 - 1.2 mg/dL 02/04/2025 7:03 PM [facility] Protein, Total 8.4(H) 6.4 - 8.3 g/dL 02/04/2025 7:03 PM [facility] Albumin 3.3(L) 3.5 - 5.0 g/dL 02/04/2025 7:03 PM [facility] Glucose 122(H) 70 - 100 mg/dL 02/04/2025 7:03 PM [facility] Comment:The given reference range is for the fasting state. Non-fasting reference range for glucose is 70 - 180 mg/dL. GFR, Estimated 53(L) >60 mL/min/1. 73m2 02/04/2025 7:03 PM [facility] Hours Fasting 0.1 8 - 12 Hours 02/04/2025 7:03 PM [facility] Blood Venipuncture / Unknown 02/04/2025 2:44 PM CDT 02/04/2025 2:44 PM [facility] - 02/04/2025 7:03 PM [facility] The National Kidney Disease Education Program suggests measuring Cystatin C in patients with eGFRcrea of 45 to 59 ml/min/1.73^2 who do not have other markers of kidney damage (i.e. elevated urine Albumin/Creatinine Ratio or a prior Cystatin C confirming the presence of chronic kidney disease). us Hollie Nolen PA-C LAB_1 Final Resul t Performing Organization Address City/[facility] Co de Phone Number [facility] [address] * (ABNORMAL) Hgb A1C (02/04/2025 2:44 PM CDT) Hemoglobin A1C 6.2(H) <=5.6 % 02/04/2025 7:54 PM CDT [facility] Estimated Average Glucose (Calc) 131 < 117 mg/dL 02/04/2025 7:[address] [facility] Comment:Estimated average gl ucose (eAG) converts A1c into glucose units (mg/dL) and estimates average glucose over the past approximately 3 months. The eAG reference interval (<117 mg/dL) corresponds to an A1c of <5.7%. Blood Venipuncture / Unknown 02/04/2025 2:44 PM CDT 02/04/2025 2:[address] [facility] - 02/04/2025 7:54 PM CDT For patients not previously diagnosed with diabetes: 5.7-6.4%: Increased risk for diabetes 6.5% and greater: Diagnostic for diabetes For patients diagnosed with diabetes: <8.0%: Goal of therapy for ages 18-75 Clinicians may recommend a higher or lower goal for specific individuals. us Hollie Nolen PA-C LAB_1 Final Resul t Performing Organization Address [facility] Co de Phone Number [facility] [address] * (ABNORMAL) Uric Acid (02/04/2025 2:44 PM CDT) Uric Acid 7.9(H) 2.6 - 6.0 mg/dL 02/04/2025 7:03 PM CDT [facility] Blood Venipuncture / Unknown 02/04/2025 2:44 PM CDT 02/04/2025 2:44 PM CDT us Hollie Nolen PA-C LAB_1 Final Resul t Performing Organization Address [facility] de Phone Number [facility] [address] * (ABNORMAL) Lipid Panel and Direct LDL(If Needed) (02/04/2025 2:44 PM CDT) [facility] Signature Cholesterol 184 0 - 199 mg/dL 02/04/2025 7:03 PM CDT [facility] Triglyceride 187(H) <=149 mg/dL 02/04/2025 7:03 PM CDT [facility] HDL Cholesterol 31(L) >=40 mg/dL 02/04/2025 7:[address] [facility] LDL, Calculated 116 <130 mg/dL 02/04/2025 7:03 PM CDT [facility] Non HDL Chol, Calculated 153 <=159 mg/dL 02/04/2025 7:03 PM CDT [facility] Cholesterol/HDL Ratio 5.9(H) <=5.0 02/04/2025 7:03 PM CDT [facility] Hours Fasting 0.1 8 - 12 Hours 02/04/2025 7:03 PM CDT [facility] Blood Venipuncture / Unknown 02/04/2025 2:44 PM CDT 02/04/2025 2:44 PM CDT us Hollie Nolen PA-C LAB_1 Final Resul t Performing Organization Address [facility] de Phone Number [facility] [address] documented in this encounter Visit Diagnoses Diagnosis Hyperlipidemia, unspecified hyperlipidemia type (HRC) Gout, unspecified cause, unspecified chronicity, unspecified site Prediabetes Other abnormal glucose Abdominal pain, generalized Lower abdominal pain Abdominal pain, other specified site documented in this encounter Care Teams Real Estate Subagent Relationship Specialty Start Date End Date Hollie Nolen PA-C [address] [place] [address] PCP - General Physician Core Winding Operator 08/18/22 documented as of this encounter
--- OUTSIDE RECORDS SUMMARY | 2025-02-05 06:35 | XMS_ITS | Encounter Summary ---
Author Organization [facility] Address [address] [facility] [place] [address] Care Team Providers Care Chemical Packager Name Role Phone Destiney Taylor MD Unavailable [phone] Kai Castaneda MD Primary Care Provider [phone] Russell Chiang MD Unavailable [phone] Frw, None Unavailable Unavailable Frw, None Primary Care Provider Unavailpatricio e Allyson Bliss MD Primary Care Provider [phone] Allyson Bliss MD Unavailable [phone] Hernesto Sue Unavailable Unavailable Odilia Valle Unavailable Unavailable Chandrika Wakefield Unavailable Unavailable Encounter Details Date Type Department Care Team (Late st Contact Info) Description 07/22/2008 [facility] [address] [place] [address] Brittany Wells, [facility] [address] [place], [place] [id number] Social History Tobacco Use Types Packs/Day Years Used Date Smoking Tobacco: Former Smokeless Tobacco: Never Comments:smoked 30 years ago Alcohol Use Standard Drinks/Week Comments No 0 (1 standard drink = 0.6 oz pur e alcohol) Comments No Sex and Gender Information Value Date Recorded Sex Assigned at Female 07/13/2020 9:19 AM GERIATRIC CASE MANAGER Legal Sex Female 3:56 AM GERIATRIC CASE MANAGER Gender Identity Female 07/13/2020 9:19 AM GERIATRIC CASE MANAGER Sexual Orientation Straight 07/13/2020 9: 19 AM GERIATRIC CASE MANAGER 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, 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 Not on file documented as of this encounter Plan of Treatment Not on file documented as of this encounter Visit Diagnoses Not on filedocumented in this encounter Care Teams Chemical Packager Relationship Specialty Start Date End Date Destiney Taylor MD PCP - Obstetrics/Gynecology 09/28/06 12/06/11 Kai Castaneda MD [facility] [place] [address] [place] [address] PCP - General 09/17/09 08/15/13 Russell Chiang MD [address] [place] [address] PCP - Surgery Surgery 08/13/10 08/04/14 Frw, None PCP - Obstetrics/Gynecology Family Practice 12/07/11 Frw, None PCP - General Family Practice 08/16/13 05/04/17 Allyson Bliss MD [address] [place] [address] [place] [address] PCP - General Internal Medicine 01/28/20 10/05/23 Allyson Bliss MD [address] [place] [address] [place] [address] Assigned PCP 12/27/19 10/26/24 Hernesto Sue Personal Advocate & Liaison (PAL) 10/13/20 11/23/20 Odilia Valle Personal Advocate & Liaison (PAL) 11/24/20 12/15/22 Chandrika Wakefield Personal Advocate & Liaison (PAL) 12/16/22 10/05/23 documented as of this encounter
--- OUTSIDE RECORDS SUMMARY | 2025-02-05 06:35 | XMS_ITS | Encounter Summary ---
Author Organization [place] Address [address] [facility] [place] [address] Care Team Providers Care Medical Legal Investigator Name Role Phone Destiney Taylor MD Unavailable [phone] Kai Castaneda MD Primary Care Provider Russell Chiang MD Unavailable [phone] Frw, None Unavailable Unavailable Frw, None Primary Care Provider Unavailpatricio e Allyson Bliss MD Primary Care Provider [phone] Allyson Bliss MD Unavailable [phone] Hernesto Sue Unavailable Unavailable Odilia Valle Unavailable Unavailable Chandrika Wakefield Unavailable Unavailable Encounter Details Date Type Department Care Team (Late st Contact Info) Description 04/02/2009 [facility] Medical Advice [facility] in [place] VICE PRESIDENT PAYMENT [address] [place] [address] Destiney Taylor MD [facility] [address] [place], [place] [id number] Hypertension, Benign (Primary Dx) Social History Tobacco Use Types Packs/Day Years Used Date Smoking Tobacco: Former Comments:smoked 30 years ago Alcohol Use Standard Drinks/Week Comments No 0 (1 standard drink = 0.6 oz pur e alcohol) Comments No Sex and Gender Information Value Date Recorded Sex Assigned at Female 07/13/2020 9:19 AM STEREOTYPE MOLDER Legal Sex Female 3:56 AM STEREOTYPE MOLDER Gender Identity Female 07/13/2020 9:19 AM STEREOTYPE MOLDER Sexual Orientation Straight 07/13/2020 9: 19 AM STEREOTYPE MOLDER 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 documented as of this encounter Plan of Treatment Not on file documented as of this encounter Visit Diagnoses Diagnosis Hypertension, benign- Primary Essential hypertension, benign documented in this encounter Care Teams Medical Legal Investigator Relationship Specialty Start Date End Date Destiney Taylor MD PCP - Obstetrics/Gynecology 09/28/06 12/06/11 Kai Castaneda MD [facility] [address] [facility] [address] [place] [address] PCP - General 09/17/09 08/15/13 Russell Chiang MD [address] [place] [address] PCP - Surgery Surgery 08/13/10 08/04/14 Frw, None PCP - Obstetrics/Gynecology Family Practice 12/07/11 Frw, None PCP - General Family Practice 08/16/13 05/04/17 Allyson Bliss MD [address] [place] [address] [place] [address] PCP - General Internal Medicine 01/28/20 10/05/23 Allyson Bliss MD [address] [place] [address] [place] [address] Assigned PCP 12/27/19 10/26/24 Hernesto Sue Personal Advocate & Liaison (PAL) 10/13/20 11/23/20 Odilia Valle Personal Advocate & Liaison (PAL) 11/24/20 12/15/22 Chandrika Wakefield Personal Advocate & Liaison (PAL) 12/16/22 10/05/23 documented as of this encounter
--- OUTSIDE RECORDS SUMMARY | 2025-02-05 06:35 | XMS_ITS | Encounter Summary ---
Author Organization [place] Address [address] [facility] [place] [address] Care Team Providers Care Project Management Director Name Role Phone Destiney Taylor MD Unavailable [phone] Kai Castaneda MD Primary Care Provider [phone] Russell Chiang MD Unavailable [phone] Frw, None Unavailable Unavailable Frw, None Primary Care Provider Unavailpatricio e Allyson Bliss MD Primary Care Provider [phone] Allyson Bliss MD Unavailable [phone] Hernesto Sue Unavailable Unavailable Odilia Valle Unavailable Unavailable Chandrika Wakefield Unavailable Unavailable Encounter Details Date Type Department Care Team (Late st Contact Info) Description 05/30/2008 [facility] Medical Advice [facility] [place] PARTS COUNTER CLERK [address] [place] [address] Destiney Taylor MD [facility] [address] [place], [place] [id number] Social History Tobacco Use Types Packs/Day Years Used Date Smoking Tobacco: Former Comments:smoked 30 years ago Alcohol Use Standard Drinks/Week Comments No 0 (1 standard drink = 0.6 oz pur e alcohol) Comments No Sex and Gender Information Value Date Recorded Sex Assigned at Female 07/13/2020 9:19 AM ENGINEER ASSISTANT Legal Sex Female 3:56 AM ENGINEER ASSISTANT Gender Identity Female 07/13/2020 9:19 AM ENGINEER ASSISTANT Sexual Orientation Straight 07/13/2020 9: 19 AM ENGINEER ASSISTANT 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 documented as of this encounter Plan of Treatment Not on file documented as of this encounter Visit Diagnoses Not on filedocumented in this encounter Care Teams Project Management Director Relationship Specialty Start Date End Date Destiney Taylor MD PCP - Obstetrics/Gynecology 09/28/06 12/06/11 Kai Castaneda MD [facility] [place] [address] [facility] [address] [place] [address] PCP - General 09/17/09 08/15/13 Russell Chiang MD [address] [place] [address] PCP - Surgery Surgery 08/13/10 08/04/14 Frw, None PCP - Obstetrics/Gynecology Family Practice 12/07/11 Frw, None PCP - General Family Practice 08/16/13 05/04/17 Allyson Bliss MD [address] [place] [address] DAQUAN BEAN [address] PCP - General Internal Medicine 01/28/20 10/05/23 Allyson Bliss MD [address] [place] [address] DAQUAN BEAN [address] Assigned PCP 12/27/19 10/26/24 Hernesto Sue Personal Advocate & Liaison (PAL) 10/13/20 11/23/20 Odilia Valle Personal Advocate & Liaison (PAL) 11/24/20 12/15/22 Chandrika Wakefield Personal Advocate & Liaison (PAL) 12/16/22 10/05/23 documented as of this encounter
--- OUTSIDE RECORDS SUMMARY | 2025-02-05 06:35 | XMS_ITS | Encounter Summary ---
Author Organization [place] Address [address] [facility] [place] [address] Care Team Providers Care Bindery Machine Setter Name Role Phone Destiney Taylor MD Unavailable [phone] Kai Castaneda MD Primary Care Provider [phone] Russell Chiang MD Unavailable [phone] Frw, None Unavailable Unavailable Frw, None Primary Care Provider Unavailpatricio e Allyson Bliss MD Primary Care Provider [phone] Allyson Bliss MD Unavailable [phone] Hernesto Sue Unavailable Unavailable Odilia Valle Unavailable Unavailable Chandrika Wakefield Unavailable Unavailable Encounter Details Date Type Department Care Team (Late st Contact Info) Description 05/29/2008 Hospital [facility] [address] [place] [address] Destiney Taylor MD [facility] [address] [place], [place] [id number] Social History Tobacco Use Types Packs/Day Years Used Date Smoking Tobacco: Former Smokeless Tobacco: Never Comments:smoked 30 years ago Alcohol Use Standard Drinks/Week Comments No 0 (1 standard drink = 0.6 oz pur e alcohol) Comments No Sex and Gender Information Value Date Recorded Sex Assigned at Female 07/13/2020 9:19 AM CRIMINAL PSYCHOLOGIST Legal Sex Female 3:56 AM CRIMINAL PSYCHOLOGIST Gender Identity Female 07/13/2020 9:19 AM CRIMINAL PSYCHOLOGIST Sexual Orientation Straight 07/13/2020 9: 19 AM CRIMINAL PSYCHOLOGIST 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, 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 Not on file documented as of this encounter Plan of Treatment Not on file documented as of this encounter Visit Diagnoses Not on filedocumented in this encounter Care Teams Bindery Machine Setter Relationship Specialty Start Date End Date Destiney Taylor MD PCP - Obstetrics/Gynecology 09/28/06 12/06/11 Kai Castaneda MD [facility] [place] [address] [facility] [address] [place] [address] PCP - General 09/17/09 08/15/13 Russell Chiang MD [address] [place] [address] PCP - Surgery Surgery 08/13/10 08/04/14 Frw, None PCP - Obstetrics/Gynecology Family Practice 12/07/11 Frw, None PCP - General Family Practice 08/16/13 05/04/17 Allyson Bliss MD [address] [place] [address] DAQUAN BEAN [address] PCP - General Internal Medicine 01/28/20 10/05/23 Allyson Bliss MD [address] [place] [address] DAQUAN BEAN [address] Assigned PCP 12/27/19 10/26/24 Hernesto Sue Personal Advocate & Liaison (PAL) 10/13/20 11/23/20 Odilia Valle Personal Advocate & Liaison (PAL) 11/24/20 12/15/22 Chandrika Wakefield Personal Advocate & Liaison (PAL) 12/16/22 10/05/23 documented as of this encounter
--- OUTSIDE RECORDS SUMMARY | 2025-02-05 06:35 | XMS_ITS | Encounter Summary ---
Author Organization [place] Address [address] [facility] [address] Care Team Providers Care Lodge Attendant Name Role Phone Frw, None Unavailable Unavailable Allyson Bliss MD Primary Care Provider [phone] Allyson Bliss MD Unavailable [phone] Chandrika Wakefield Unavailable Unavailable Encounter Details Date Type Department Care Team (Late st Contact Info) Description 03/22/2023 [facility] [address] [place] [phone] Chandrika Wakefield Social History Tobacco Use Types Packs/Day Years Used Date Smoking Tobacco: Former Smokeless Tobacco: Never Comments:smoked 30 years ago Alcohol Use Standard Drinks/Week Comments No 0 (1 standard drink = 0.6 oz pur e alcohol) PHQ-2 Answer Date Recorded PHQ-2 Score 3 06/21/2021 Comments No Sex and Gender Information Value Date Recorded Sex Assigned at Female 07/13/2020 9:19 AM CASH REGISTER SERVICER Legal Sex Female 3:56 AM CASH REGISTER SERVICER Gender Identity Female 07/13/2020 9:19 AM CASH REGISTER SERVICER Sexual Orientation Straight 07/13/2020 9: 19 AM CASH REGISTER SERVICER 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, 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 Not on file documented as of this encounter Plan of Treatment Not on file documented as of this encounter Visit Diagnoses Not on filedocumented in this encounter Additional Health Concerns Assessment Noted Time PHQ-9 Depression Total Score: 5 06/21/20 21 2:19 PM CDT documented as of this encounter Care Teams Lodge Attendant Relationship Specialty Start Date End Date Frw, None PCP - Obstetrics/Gynecology Family Practice 12/07/11 Allyson Bliss MD [address] [place] [address] DAQUAN BEAN [address] PCP - General Internal Medicine 01/28/20 10/05/23 Allyson Bliss MD [address] [place] [address] DAQUAN BEAN [id number] Assigned PCP 12/27/19 10/26/24 Chandrika Wakefield Personal Advocate & Liaison (PAL) 12/16/22 10/05/23 documented as of this encounter
--- OUTSIDE RECORDS SUMMARY | 2025-02-05 06:35 | XMS_ITS | Clinical Summary ---
Author Organization [place] Address [address] [facility] [place] [address] Care Team Providers Care Bi Architect Name Role Phone Frw, None Unavailable Unavailable Allergies Active Allergy Reactions Criticality Noted Date Comments Escitalopram 07/14/2020 dizziness Lisinopril Other (See Comments),Cough 01/31/2012 Nifedipine Other (See Comments),Headache 01/29/2012 Other reaction(s): Lightheadedness Nifedipine cream prescribed by Rowdy Cortez PA-C, GI from [facility]. Other reaction(s): Fatigue Nifedipine cream prescribed by Rowdy Cortez PA-C, GI from [facility]. Nifedipine cream prescribed by Rowdy Cortez PA-C, GI from [facility]. Nsaids Other (See Comments) ,GI Disturbance 10/23/2015 Penicillins Hives 12/28/2006 Medications losartan (COZAAR) 50 MG tabletIndicatio ns:Hypertension , benign Take 1 tablet (50 mg) by mouth daily 90 tablet 01/21/2022 Active buPROPion (WELLBUTRIN XL) 300 MG 24 hr tabletIndicatio ns:Moderate episode of recurrent major depressive disorder (H) TAKE ONE TABLET BY MOUTH EVERY MORNING *LAST FILL UNTIL SEEN* 90 tablet 02/03/2022 Active sertraline (ZOLOFT) 100 MG tabletIndicatio ns:Moderate episode of recurrent major depressive disorder (H) TAKE ONE TABLET BY MOUTH EVERY DAY *LAST FILL UNTIL SEEN* 90 tablet 02/03/2022 Active Active Problems Problem Noted Date Diagnosed Date Obesity 05/04/2020 History of diverticulitis 01/21/2020 Incisional hernia, without obstruction or gangre ne 01/21/2020 Mixed hyperlipidemia 03/03/2011 History of anal fissure 12/24/2010 Overview (05/04/2020): Prolonged course after colonoscopy, had anal spasm. Took > 1 year to resolve. Hypertension, benign 05/30/2008 Anxiety 05/30/2008 Overview (05/04/2020): On prozac for many years, did feel like an empty shell Immunizations Immunization Administration Dates Next Due Influenza (IIV3) PF 07/30/2007 Influenza Vaccine 18-64 (Flublok) 05/04/2020 TD,PF 7+ (Tenivac) 07/30/2007,09/04/2006 Td (Adult), Adsorbed 07/30/2007 Family History Medical History Relation Comments Coronary Artery Disease Brother 1 Alcoholism Brother 2 Diabetes Type 2 Brother 2 Heart Disease Brother 2 NE with Coronary Artery Disease Brother 3 Heart Disease Brother 3 second brother Prostate Cancer Brother 3 Hypertension Brother 4 Lipids Brother 4 Prostate Cancer Brother 4 of aggressi ve prostate cancer Diabetes Father Hypertension Father Prostate Cancer Father Heart Disease Maternal Grandfather Diabetes Maternal Uncle Cancer Mother DVT after surger y Respiratory Mother Lung cancer Diabetes Paternal Grandfather Gynecology Paternal Grandmother Ovarian Can cer Asthma No family hx of Relation Status Comments Brother 1 x 1 Brother 2 Brother 3 Brother 4 Father Alive Maternal Grandfather Maternal Uncle Mother (Age 62) Lung cancer-no nsmoker Paternal Grandfather Paternal Grandmother Sister Alive x 4 Social History Tobacco Use Types Packs/Day Years Used Date Smoking Tobacco: Former Smokeless Tobacco: Never Comments:smoked 30 years ago Alcohol Use Standard Drinks/Week Comments No 0 (1 standard drink = 0.6 oz pur e alcohol) PHQ-2 Answer Date Recorded PHQ-2 Score 3 06/21/2021 Adolescent Education Answer Date Record ed Getting School Help Needed Not on file 06/11 Comments No Sex and Gender Information Value Date Recorded Sex Assigned at Female 07/13/2020 9:19 AM WALLET ASSEMBLER Legal Sex Female 3:56 AM WALLET ASSEMBLER Gender Identity Female 07/13/2020 9:19 AM WALLET ASSEMBLER Sexual Orientation Straight 07/13/2020 9: 19 AM WALLET ASSEMBLER 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, 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 Not on file Last Filed Vital Signs Vital Sign Reading Time Taken Comments Blood Pressure 128/88 05/04/2020 1:26 PM CDT Pulse 92 05/04/2020 1:26 PM CDT Temperature 36.6 C (97.9 F) 05/04/2020 1:26 PM CDT Respiratory Rate 18 05/04/2020 1:26 PM CDT Oxygen Saturation 98% 05/04/2020 1:26 PM CDT Inhaled Oxygen Concentration - - Weight 141.1 kg (311 lb) 05/04/2020 1:26 PM CDT Height 163.8 cm (5' 4.5) 05/04/2020 1:26 PM CDT Body Mass Index 52.56 05/04/2020 1:26 PM CDT Plan of Treatment Not on file Insurance [facility] MEDIC[facility] Care Teams Bi Architect Relationship Specialty Start Date End Date Frw, None PCP - Obstetrics/Gynecology Family Practice 12/07/11
--- OUTSIDE RECORDS SUMMARY | 2025-02-05 06:35 | XMS_ITS | Encounter Summary ---
Author Organization [place] Address [address] [facility] [place] [address] Care Team Providers Care Cable Installation Manager Name Role Phone Destiney Taylor MD Unavailable [phone] Kai Castaneda MD Primary Care Provider Russell Chiang MD Unavailable [phone] Frw, None Unavailable Unavailable Frw, None Primary Care Provider Unavailpatricio e Allyson Bliss MD Primary Care Provider [phone] Allyson Bliss MD Unavailable [phone] Hernesto Sue Unavailable Unavailable Odilia Valle Unavailable Unavailable Chandrika Wakefield Unavailable Unavailable Encounter Details Date Type Department Care Team (Late st Contact Info) Description 07/16/2008 MyC Medical Advice [facility] in [place] SKIP MINER [address] [place] [address] Destiney Taylor MD [facility] [address] [place], [place] [id number] Anxiety (Primary Dx) Social History Tobacco Use Types Packs/Day Years Used Date Smoking Tobacco: Former Comments:smoked 30 years ago Alcohol Use Standard Drinks/Week Comments No 0 (1 standard drink = 0.6 oz pur e alcohol) Comments No Sex and Gender Information Value Date Recorded Sex Assigned at Female 07/13/2020 9:19 AM COMMUNITY HEALTH PROMOTER Legal Sex Female 3:56 AM COMMUNITY HEALTH PROMOTER Gender Identity Female 07/13/2020 9:19 AM COMMUNITY HEALTH PROMOTER Sexual Orientation Straight 07/13/2020 9: 19 AM COMMUNITY HEALTH PROMOTER 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 documented as of this encounter Plan of Treatment Not on file documented as of this encounter Visit Diagnoses Diagnosis Anxiety- Primary Anxiety state, unspecified documented in this encounter Care Teams Cable Installation Manager Relationship Specialty Start Date End Date Destiney Taylor MD PCP - Obstetrics/Gynecology 09/28/06 12/06/11 Kai Castaneda MD [facility] [place] [address] [facility] [address] [place] [address] PCP - General 09/17/09 08/15/13 Russell Chiang MD [address] [place] [address] PCP - Surgery Surgery 08/13/10 08/04/14 Frw, None PCP - Obstetrics/Gynecology Family Practice 12/07/11 Frw, None PCP - General Family Practice 08/16/13 05/04/17 Allyson Bliss MD [address] [place] [address] DAQUAN BEAN [address] PCP - General Internal Medicine 01/28/20 10/05/23 Allyson Bliss MD [address] [place] [address] DAQUAN BEAN [address] Assigned PCP 12/27/19 10/26/24 Hernesto Sue Personal Advocate & Liaison (PAL) 10/13/20 11/23/20 Odilia Valle Personal Advocate & Liaison (PAL) 11/24/20 12/15/22 Chandrika Wakefield Personal Advocate & Liaison (PAL) 12/16/22 10/05/23 documented as of this encounter
--- OUTSIDE RECORDS SUMMARY | 2025-02-05 06:36 | XMS_ITS | Clinical Summary ---
Author Organization [facility] Address [address] [place] [address] Care Team Providers Care Gear Lapping Machine Operator Name Role Phone Yue Tam [facility] Primary Care Provider [phone] Allergies Active Allergy Reactions Criticality Noted Date Comments Lisinopril *Unknown 10/23/2015 Nifedipine *Unknown 10/23/2015 Nsaids (Non-Steroidal Anti-I nflammatory Drug) *Unknown 10/23/2015 Penicillins Rash Medications LOSARTAN POTASSIUM (LOSARTAN ORAL) Take 50 mg by mouth once daily. Active ACETAMINOPHEN (TYLENOL ORAL) Take 1,000 mg by mouth every 4 hours if needed. Active cholecalciferol (VITAMIN D3) 2,000 unit capsule Take 2,000 Units by mouth once daily. Active Family History Medical History Relation Name Comments Cancer-prostate Brother 1 Cancer-prostate Brother 2 Cancer-prostate Father Cancer-breast Mother Stomach cancer Paternal Grandmother Relation Name Status Comments Brother 1 Brother 2 Father Mother Paternal Grandmother Social History Tobacco Use Types Packs/Day Years Used Date Smoking Tobacco: Former Smokeless Tobacco: Never Tobacco Cessation:Counseling Given: Yes Alcohol Use Standard Drinks/Week Comments No 0 (1 standard drink = 0.6 oz pur e alcohol) Comments No Sex and Gender Information Value Date Recorded Sex Assigned at Not on file Legal Sex Female 5:24 AM STENOGRAPHER SECRETARY Gender Identity Not on file Sexual Orientation Not on file Obstetrics History Last Filed Vital Signs Vital Sign Reading Time Taken Comments Blood Pressure 144/89 07/04/2018 8:57 AM CDT Pulse 90 07/04/2018 8:57 AM CDT Temperature 37 C (98.6 F) 07/04/2018 8:54 AM CDT Respiratory Rate 20 09/09/2015 8:15 PM STENOGRAPHER SECRETARY Oxygen Saturation 95% 07/04/2018 8:54 AM CDT Inhaled Oxygen Concentration - - Weight 137.3 kg (302 lb 11.2 oz) 07/04/2018 8:54 AM CDT Height 162.8 cm (5' 4.08) 07/04/2018 8:54 AM CD T Body Mass Index 51.84 07/04/2018 8:54 AM CDT Plan of Treatment Health Maintenance Due Date Last Done Comments Tdap 1967 Depression screening for age 12+ 1968 Hepatitis C screening for ag e 18-79 1974 Tetanus booster 1976 Colonoscopy through age 75 2001 Lipids for age 45-75 2001 Mammogram for age 45-75 2001 Pneumococcal series for age 50+ (1 of 1 - PCV) 2006 Zoster (shingles) series for age 50+ (1 of 2) 2006 BMI (ht and wt on same day) for age 18+ 07/04/2019 07/04/2018, 09/09/2015 DEXA/DXA scan for age 65+ 2021 COVID-19 vaccine series ( - 2023- season) 2024 Influenza Vaccine (Season Ended) 2025 RSV vaccine for adults or (1 - 1-dose 75+ series) 2031 Hepatitis B series for 19+ Aged Out N o longer eligible based on patient's age to complete this topic Insurance [facility] Member Subscriber Plan / Payer (Ef fective 2016-Present) Name:Radha Aguero Relation to Subscriber:Spouse Name:Jose Daniel Aguero Date of :1956 (Home) Address: [facility] [address] [place] [address] Payer ID:[id number] (NAIC) Type:Not on file Address: [facility] [address] [place] [address] Care Teams Gear Lapping Machine Operator Relationship Specialty Start Date End Date Yue Tam MBBS PCP - General Internal Medicine 10/14/15
--- OUTSIDE RECORDS SUMMARY | 2025-02-05 06:36 | XMS_ITS | Clinical Summary ---
Author Organization [facility] Address [address], [place] [address] Care Team Providers Care Behavioral Analyst Name Role Phone Hollie Nolen PA-C Primary Care Provider [phone] Source Comments You are receiving this document as you are listed as the primary care provider,follow-up provider, or the patient has been referred to you for consultation.This is in compliance with the Medicare andOhio[facility] Hospitalcaid EHR Incentive Program,which states Providers who transition their patient to another setting of careor provider of care or refers their patient to another provider of care shouldprovide summary care record for each transition of care or referral. [facility] Allergies Active Allergy Reactions Criticality Noted Date Comments Penicillins Hives,Itching High 03/29/1966 Medications Ascorbic Acid (VITAMIN C OR) Activ e Cholecalciferol (VITAMIN D-3) 125 MCG (5000 UT) TABS Active fexofenadine (CECILIA) 180 MG tablet Take 1 Tablet (180 mg) by mouth daily as needed. Active hydrOXYzine HCl (ATARAX) 10 MG tabletIndicatio ns:Adjustment disorder with anxiety (HRC) take one tablet by mouth twice a day as needed 30 Tablet 02/07/2024 Active losartan (COZAAR) 50 MG tabletIndicatio ns:Hypertension , benign (HRC) Take 1.5 Tablets (75 mg) by mouth daily. 135 Tablet 3 12/12/2024 Active Active Problems Problem Noted Date Diagnosed Date Hyperlipidemia 12/12/2024 Gout 12/12/2024 Class 3 severe obesity with body mass index (BMI) of 50.0 to 59.9 in adult 03/30/2023 Prediabetes 03/30/2023 Hypertension, benign 05/30/2008 Encounters Date Type Department Care Team Description 02/04/2025 2:30 PM CDT Lab Visit Laboratory at [address] [address] Hyperlipidemia, unspecified hyperlipidemia type (HRC); Gout, unspecified cause, unspecified chronicity, unspecified site; Prediabetes; Abdominal pain, generalized; Lower abdominal pain 02/04/2025 2:00 PM CDT Office Visit [address] [phone] Hollie Nolen PA-C Encounter for Medicare annual wellness exam (Primary Dx); Screen for colon cancer; Prediabetes; Hypertension, benign (HRC); Lower abdominal pain 02/03/2025 8:10 PM CDT E-Visit [address] [address] Hollie Nolen PA-C Dx: Abdominal pain, generalized (Primary Dx) 12/12/2024 2:00 PM CDT Telemedicine [address] [address] Hollie Nolen PA-C Hypertension, benign (HRC) (Primary Dx); Prediabetes; Class 3 severe obesity with body mass index (BMI) of 50.0 to 59.9 in adult, unspecified obesity type, unspecified whether serious comorbidity present; Encounter for screening for malignant neoplasm of breast, unspecified screening modality; Gout, unspecified cause, unspecified chronicity, unspecified site; Encounter for screening mammogram for malignant neoplasm of breast; Hyperlipidemia, unspecified hyperlipidemia type (HRC) 11/28/2024 Refill [facility] [address] [place] [address] Sylvia Guerrero PA-C Refill (losartan (COZAAR) 50 MG tablet [Pharmacy Med Name: LOSARTAN POTASSIUM 50MG TABS]) from Last 3 Months Immunizations Immunization Administration Dates Next Due Flu Vac (3+ yrs) 07/30/2007 Flublok (RIV4) 05/04/2020 Caesar COVID-19 Vaccine 06/26/2021 Td 07/30/2007 Td (7+ yrs) 07/30/2007,09/04/2006 Td, Preservative Free 07/30/2007 Family History Medical History Relation Name Comments Coronary Artery Disease Father Hypertension Father Cancer, Lung Mother Alcohol Abuse Brother 1 Coronary Artery Disease Brother 1 Diabetes, Type II Brother 1 Coronary Artery Disease Brother 2 Hypertension Sister 1 Cancer, Other Sister 2 skin Hypertension Sister 4 Relation Name Status Comments Father Mother Brother 1 Brother 2 Alive Brother 3 Alive Sister 1 Alive Sister 2 Alive Sister 3 Alive Sister 4 Alive Social History Tobacco Use Types Packs/Day Years Used Date Smoking Tobacco: Never Smokeless Tobacco: Never Tobacco Cessation:Counseling Given: Not Answered Alcohol Use Standard Drinks/Week Comments Never 0 (1 standard drink = 0.6 oz pur e alcohol) PHQ-2 Answer Date Recorded PHQ-2 Score 4 02/04/2025 Comments No Sex and Gender Information Value Date Recorded Sex Assigned at Female 09/13/2022 10:09 AM MEDICAL DOCTOR MD Legal Sex Female 6:14 PM CDT Gender Identity Female 09/13/2022 10:09 AM MEDICAL DOCTOR MD Sexual Orientation Straight 09/13/2022 10 :09 AM MEDICAL DOCTOR MD Last Filed Vital Signs Vital Sign Reading [...] Mass Index 53.28 02/04/2025 1:54 PM CDT Plan of Treatment Health Maintenance Due Date Last Done Comments Colon Cancer Screening Plan Due 1955 Pneumococcal Vaccine 50+ Yrs (1 of 1 - PCV) 2006 Zoster/Shingles Vaccine (1 of 2) 2006 DTaP/Tdap/Td Vaccine (1 - Tdap) 07/31/2007 07/30/2007, 07/30/2007, 07/30/2007, Additional history exists RSV Vaccine (1 - Risk 60-74 years 1-dose series) 2016 Mammogram 09/25/2016 09/25/2015, 09/05, 07/11/2013 Dexa 2021 COVID-19 Vaccine ( season) 2024 06/26/2021 Influenza Vaccine (Season Ended) 2025 05/04/2020, 07/30/2007 Medicare Annual Wellness Visit 02/04/2026 02/04/2025, 10/04/2022 Prediabetes: HGBA1C 02/04/2026 02/04/2025, Cholesterol 02/04/2030 02/04/2025, 10/03/2023 Hep C Screening (Preventive Services) Completed 10/03/2023 HepA Vaccine Aged Out No longer eligi ble based on patient's age to complete this topic HepB Vaccine Aged Out No longer eligi ble based on patient's age to complete this topic Hib Vaccine Aged Out No longer eligi ble based on patient's age to complete this topic IPV (Polio) Vaccine Aged Out No longe r eligible based on patient's age to complete this topic MCV4 Vaccine Aged Out No longer eligi ble based on patient's age to complete this topic Meningococcal B Vaccine Aged Out No l onger eligible based on patient's age to complete this topic Procedures Procedure Name Priority Date/Time Associated Diagnosis Comments UA MICRO Routine 02/04/2025 2:44 PM CDT Abdominal pain, generalized COMPLETE BLOOD COUNT-W/DIFF Routine 02/04/2025 2:44 PM CDT Abdominal pain, generalized C-REACTIVE PROTEIN Routine 02/04/2025 2: 44 PM CDT Lower abdominal pain UA WITH MICROSCOPIC Routine 02/04/2025 2 :44 PM CDT Abdominal pain, generalized COMPREHENSIVE METABOLIC PANEL Routine 02/04/2025 2:44 PM CDT Abdominal pain, generalized CBC AND DIFFERENTIAL PANEL Routine 02/04/2025 2:44 PM CDT Abdominal pain, generalized HGB A1C Routine 02/04/2025 2:44 PM CDT Prediabetes URIC ACID Routine 02/04/2025 2:44 PM CDT Gout, unspecified cause, unspecified chronicity, unspecified site LIPID PANEL & DIRECT LDL (IF NEEDED) Routine 02/04/2025 2:44 PM CDT Hyperlipidemia, unspecified hyperlipidemia type (HRC) HEPATITIS C ANTIBODY, WITH REFLEX Routine 10/03/2023 10:51 AM MEDICAL DOCTOR MD Screening for viral disease from Last 3 Months or Most Recently Relevant to Health Maintenance Results * (ABNORMAL) Lipid Panel and Direct LDL(If Needed) (02/04/2025 2:44 PM CDT) Cholesterol 184 0 - 199 mg/dL 02/04/2025 7:03 PM CDT [facility] Triglyceride 187(H) <=149 mg/dL 02/04/2025 7:03 PM CDT [facility] HDL Cholesterol 31(L) >=40 mg/dL 02/04/2025 7:03 PM CDT [facility] LDL, Calculated 116 <130 mg/dL 02/04/2025 7:03 PM CDT [facility] Non HDL Chol, Calculated 153 <=159 mg/dL 02/04/2025 7:03 PM T [facility] Cholesterol/HDL Ratio 5.9(H) <=5.0 02/04/2025 7:03 PM CDT [facility] Hours Fasting 0.1 8 - 12 Hours 02/04/2025 7:03 PM T [facility] Blood Venipuncture / Unknown 02/04/2025 2:44 PM CDT 02/04/2025 2:44 PM CDT us Hollie Nolen PA-C LAB_1 Final Resul t [facility] [address] [place] [address], [facility] * (ABNORMAL) Complete Blood Count-W/Diff (02/04/2025 2:44 PM CDT) WBC 11.7(H) 3.5 - 10.5 x10(9)/L 02/04/2025 2:52 PM CDT [facility] RBC 4.97 3.90 - 5.03 x10(12)/L 02/04/2025 2:52 PM CDT [facility] Hemoglobin 12.9 12.0 - 15.5 g/dL 02/04/2025 2:52 PM CDT [facility] HCT 41.4 34.9 - 44.5 % 02/04/2025 2:52 PM CDT [facility] MCV 83.3 80.0 - 100.0 fL 02/04/2025 2:52 PM CDT [facility] MCH 26.0(L) 27.6 - 33.3 pg 02/04/2025 2:52 PM CDT [facility] MCHC 31.2(L) 31.5 - 35.2 g/dL 02/04/2025 2:52 PM CDT [facility] RDW 13.8 11.9 - 15.5 % 02/04/2025 2:52 PM CDT [facility] Platelets 454(H) 150 - 450 x10(9)/L 02/04/2025 2:52 PM CDT [facility] Neutrophil Absolute 7.7(H) 1.7 - 7.0 10(9)/L 02/04/2025 2:52 PM CDT [facility] Lymphocyte Absolute 2.9 1.0 - 4.8 10(9)/L 02/04/2025 2:52 PM CDT [facility] Monocyte Absolute 0.9 0.2 - 0.9 10(9)/L 02/04/2025 2:52 PM CDT [facility] Eosinophil Absolute 0.1 0.0 - 0.5 10(9)/L 02/04/2025 2:52 PM CDT [facility] Basophil Absolute 0.0 0.0 - 0.3 10(9)/L 02/04/2025 2:52 PM CDT [facility] Immature Granulocyte % 0.8(H) 0.0 - 0.5 % 02/04/2025 2:52 PM CDT [facility] Blood Venipuncture / Unknown 02/04/2025 2:44 PM CDT 02/04/2025 2:44 PM CDT us Hollie Nolen PA-C LAB_1 Final Resul t [facility] [address] [address] [place] [address], [facility] * (ABNORMAL) UA with Microscopic: Clean Catch (02/04/2025 2:44 PM CDT) Color Yellow 02/04/2025 3:07 PM CDT [facility] Clarity Clear Clear 02/04/2025 3:07 PM CDT [facility] Specific [place] 1.025 1.005 - 1.030 02/04/2025 3:07 PM CDT [facility] pH 6.0 5.0 - 8.0 02/04/2025 3:07 PM CDT [facility] Protein 30(A) Neg/Trace mg/dL 02/04/2025 3:07 PM CDT [facility] Glucose Negative Negative mg/dL 02/04/2025 3:07 PM CDT [facility] Ketones Trace(A) Negative mg/dL 02/04/2025 3:07 PM CDT [facility] Urobilinogen 1.0 <2.0 EU/dL 02/04/2025 3:07 PM CDT [facility] Bilirubin Small(A) Negative 02/04/2025 3:07 PM CDT [facility] Blood Negative Neg/Trace 02/04/2025 3:07 PM CDT [facility] Nitrite Negative Negative 02/04/2025 3:07 PM CDT [facility] Leukocyte Esterase Trace(A) Negative 02/04/2025 3:07 PM CDT [facility] Source Clean Catch 02/04/2025 3:07 PM CDT [facility] Urine URINE SPECIMEN COLLECTION, CLEAN CATCH / Unknown Non-blood Collection / Unknown 02/04/2025 2:44 PM CDT 02/04/2025 2:44 PM CDT us Hollie Nolen PA-C LAB_1 Final Resul t [facility] [address] [place] [address], [facility] * (ABNORMAL) Comprehensive Metabolic Panel (02/04/2025 2:44 PM CDT) [facility] Sodium 139 136 - 145 mmol/L 02/04/2025 7:03 PM T [facility] Potassium 4.3 3.5 - 5.1 mmol/L 02/04/2025 7:03 PM [facility] Chloride 102 98 - 109 mmol/L 02/04/2025 7:03 PM [facility] CO2 27 20 - 29 mmol/L 02/04/2025 7:03 PM [facility] Anion Gap 10 6 - 16 mmol/L 02/04/2025 7:03 PM [facility] Calcium 10.3 8.4 - 10.4 mg/dL 02/04/2025 7:03 PM [facility] BUN 18 7 - 26 mg/dL 02/04/2025 7:03 PM [facility] Creatinine 1.13(H) 0.55 - 1.02 mg/dL 02/04/2025 7:03 PM [facility] Alkaline Phosphatase 166(H) 40 - 150 U/L 02/04/2025 7:03 PM [facility] AST (SGOT) 47(H) 10 - 40 U/L 02/04/2025 7:03 PM [facility] ALT (SGPT) 44 0 - 55 U/L 02/04/2025 7:03 PM [facility] Bilirubin, Total 0.4 0.2 - 1.2 mg/dL 02/04/2025 7:03 PM [facility] Protein, Total 8.4(H) 6.4 - 8.3 g/dL 02/04/2025 7:03 PM [facility] Albumin 3.3(L) 3.5 - 5.0 g/dL 02/04/2025 7:03 PM CDT [facility] Glucose 122(H) 70 - 100 mg/dL 02/04/2025 7:03 PM CDT [facility] Comment:The given reference range is for the fasting state. Non-fasting reference range for glucose is 70 - 180 mg/dL. GFR, Estimated 53(L) >60 mL/min/1. 73m2 02/04/2025 7:03 PM CDT [facility] Hours Fasting 0.1 8 - 12 Hours 02/04/2025 7:03 PM CDT [facility] Blood Venipuncture / Unknown 02/04/2025 2:44 PM CDT 02/04/2025 2:44 PM CDT [facility] - 02/04/2025 7:03 PM CDT The National Kidney Disease Education Program suggests measuring Cystatin C in patients with eGFRcrea of 45 to 59 ml/min/1.73^2 who do not have other markers of kidney damage (i.e. elevated urine Albumin/Creatinine Ratio or a prior Cystatin C confirming the presence of chronic kidney disease). us Hollie Nolen PA-C LAB_1 Final Resul t Performing Organization Address [facility] Co de Phone Number [facility] [address] * (ABNORMAL) C-Reactive Protein (02/04/2025 2:44 PM CDT) C-Reactive Protein 18.9(H) 0.0 - 0.5 mg/dL 02/04/2025 7:03 PM CDT [facility] Blood Venipuncture / Unknown 02/04/2025 2:44 PM CDT 02/04/2025 2:44 PM CDT us Hollie Nolen PA-C LAB_1 Final Resul t Performing Organization Address [facility] Co de Phone Number [facility] [address] [place] [address], [place] * (ABNORMAL) Hgb A1C (02/04/2025 2:44 PM CDT) Hemoglobin A1C 6.2(H) <=5.6 % 02/04/2025 7:54 PM CDT [facility] Estimated Average Glucose (Calc) 131 < 117 mg/dL 02/04/2025 7:54 PM CDT [facility] Comment:Estimated average gl ucose (eAG) converts A1c into glucose units (mg/dL) and estimates average glucose over the past approximately 3 months. The eAG reference interval (<117 mg/dL) corresponds to an A1c of <5.7%. Blood Venipuncture / Unknown 02/04/2025 2:44 PM CDT 02/04/2025 2:44 PM CDT Narrative [facility] - 02/04/2025 7:54 PM CDT For patients not previously diagnosed with diabetes: 5.7-6.4%: Increased risk for diabetes 6.5% and greater: Diagnostic for diabetes For patients diagnosed with diabetes: <8.0%: Goal of therapy for ages 18-75 Clinicians may recommend a higher or lower goal for specific individuals. Hollie Nolen PA-C LAB_1 Final Resul t Performing Organization Address [facility] Co de Phone Number [facility] [address] * (ABNORMAL) Uric Acid (02/04/2025 2:44 PM CDT) Uric Acid 7.9(H) 2.6 - 6.0 mg/dL 02/04/2025 7:03 PM CDT [facility] Blood Venipuncture / Unknown 02/04/2025 2:44 PM CDT 02/04/2025 2:44 PM CDT Hollie Nolen PA-C LAB_1 Final Resul t Performing Organization Address [facility]/ZIP Co de Phone Number [facility] [address] [address] * (ABNORMAL) Urine Microscopic Evaluation: Clean Catch (02/04/2025 2:44 PM CDT) Urine Culture Comment Urinalysis results do not meet criteria for urine culture reflex. 02/04/2025 3:07 PM CDT [facility] Red Blood Cells 0-3 0 - 3 /HPF 02/04/2025 3:07 PM CDT [facility] White Blood Cells 6-9(A) 0 - 5 /HPF 02/04/2025 3:07 PM CDT [facility] Bacteria Many(A) None Seen /HPF 02/04/2025 3:07 PM CDT [facility] Squamous Epithelial Cells Many(A) None Seen, Occasiona l, Few /HPF 02/04/2025 3:07 PM CDT [facility] Crystals, Amorphous Present(A) None Seen /HPF 02/04/2025 3:07 PM CDT [facility] Urine URINE SPECIMEN COLLECTION, CLEAN CATCH / Unknown Non-blood Collection / Unknown 02/04/2025 2:44 PM CDT 02/04/2025 2:44 PM CDT Hollie Nolen PA-C LAB_1 Final Resul t Performing Organization Address [facility] Co de Phone Number [facility] [address] [place] [address] * Hepatitis C Antibody, with Reflex (10/03/2023 10:51 AM MEDICAL DOCTOR MD) Hepatitis C Antibody Negative (Non Reactive) Negative (Non Reactive) 10/03/2023 3:13 PM MEDICAL DOCTOR MD [facility] Comment:Antibodies to HCV no t detected. Does not exclude the possiblity of exposure to HCV. Blood Venipuncture / Unknown 10/03/2023 10:51 AM MEDICAL DOCTOR MD 10/03/2023 10:52 AM MEDICAL DOCTOR MD Hollie Nolen PA-C LAB_1 Final Resul t Performing Organization Address [facility]/ZIP Co de Phone Number [facility] [address] [place] [address] from Last 3 Months or Most Recently Relevant to Health Maintenance Insurance [facility] MEDICARE ADVANTAGE Care Teams Behavioral Analyst Relationship Specialty Start Date End Date Hollie Nolen PAAdisC [id number] [place] [address] PCP - General Physician Decommissioning Well Site Manager 08/18/22
--- OUTSIDE RECORDS SUMMARY | 2025-02-05 06:36 | XMS_ITS | Encounter Summary ---
Author Organization [place] Address [address] [facility] [place] [address] Care Team Providers Care Ornamental Metal Worker Helper Name Role Phone Frw, None Unavailable Unavailable Allyson Bliss MD Primary Care Provider [phone] Allyson Bliss MD Unavailable Odilia Valle Unavailable Unavailable Chandrika Wakefield Unavailable Unavailable Encounter Details Date Type Department Care Team (Late st Contact Info) Description 10/12/2021 [facility] Terrence Melton [address] [place] [phone] Shauna Ambriz Social History Tobacco Use Types Packs/Day Years Used Date Smoking Tobacco: Former Smokeless Tobacco: Never Comments:smoked 30 years ago Alcohol Use Standard Drinks/Week Comments No 0 (1 standard drink = 0.6 oz pur e alcohol) PHQ-2 Answer Date Recorded PHQ-2 Score 3 06/21/2021 Comments No Sex and Gender Information Value Date Recorded Sex Assigned at Female 07/13/2020 9:19 AM ORDER BOOKER Legal Sex Female 3:56 AM ORDER BOOKER Gender Identity Female 07/13/2020 9:19 AM ORDER BOOKER Sexual Orientation Straight 07/13/2020 9: 19 AM ORDER BOOKER Occupation Industry Job Start Date Job End [...] documented as of this encounter Care Teams Ornamental Metal Worker Helper Relationship Specialty Start Date End Date Frw, None PCP - Obstetrics/Gynecology Family Practice 12/07/11 Allyson Bliss MD [address] [facility] [place] [address] PCP - General Internal Medicine 01/28/20 10/05/23 Allyson Bliss MD [address] [facility] [place] [address] Assigned PCP 12/27/19 10/26/24 Odilia Valle Personal Advocate & Liaison (PAL) 11/24/20 12/15/22 Chandrika Wakefield Personal Advocate & Liaison (PAL) 12/16/22 10/05/23 documented as of this encounter
--- OUTSIDE RECORDS SUMMARY | 2025-02-05 06:36 | XMS_ITS | Encounter Summary ---
Author Organization [place] Address [address] [place] [address] Care Team Providers Care Bench Hand Machine Name Role Phone Destiney Taylor MD Unavailable [phone] Kai Castaneda MD Primary Care Provider [phone] Russell Chiang MD Unavailable [phone] Frw, None Unavailable Unavailable Frw, None Primary Care Provider Unavailpatricio e Allyson Bliss MD Primary Care Provider [phone] Allyson Bliss MD Unavailable [phone] Hernesto Sue Unavailable Unavailable Odilia Valle Unavailable Unavailable Chandrika Wakefield Unavailable Unavailable Encounter Details Date Type Department Care Team (Late st Contact Info) Description 04/18/2010 [facility] [place] Inpatient Dept [address] [place] [address] Frw, Inpatient Provider Diverticulitis of Colon (without Mention of Hemorrhage) (Primary Dx); Other Specified Disease of Hair and Hair Follicles; ESOPHAGEAL REFLUX Social History Tobacco Use Types Packs/Day Years Used Date Smoking Tobacco: Former Smokeless Tobacco: Never Comments:smoked 30 years ago Alcohol Use Standard Drinks/Week Comments No 0 (1 standard drink = 0.6 oz pur e alcohol) Comments No Sex and Gender Information Value Date Recorded Sex Assigned at Female 07/13/2020 9:19 AM DIRECTOR OF PHARMACY Legal Sex Female 3:56 AM DIRECTOR OF PHARMACY Gender Identity Female 07/13/2020 9:19 AM DIRECTOR OF PHARMACY Sexual Orientation Straight 07/13/2020 9: 19 AM DIRECTOR OF PHARMACY 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, 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 Not on file documented as of this encounter Plan of Treatment Not on file documented as of this encounter Visit Diagnoses Diagnosis Diverticulitis of colon (without mention of hemorrhage)(562.11)- Primary Diverticulitis of colon (without mention of hemorrhage) Other specified disease of hair and hair follicles Esophageal reflux documented in this encounter Care Teams Bench Hand Machine Relationship Specialty Start Date End Date Destiney Taylor MD PCP - Obstetrics/Gynecology 09/28/06 12/06/11 Kai Castaneda MD [place] [address] [facility] [address] [place] [address] PCP - General 09/17/09 08/15/13 Russell Chiang MD [address] [place] [address] PCP - Surgery Surgery 08/13/10 08/04/14 Frw, None PCP - Obstetrics/Gynecology Family Practice 12/07/11 Frw, None PCP - General Family Practice 08/16/13 05/04/17 Allyson Bliss MD [address] [place] [address] [place] [address] PCP - General Internal Medicine 01/28/20 10/05/23 Allyson Bliss MD [address] [place] [address] [place] [address] Assigned PCP 12/27/19 10/26/24 Hernesto Sue Personal Advocate & Liaison (PAL) 10/13/20 11/23/20 Odilia Valle Personal Advocate & Liaison (PAL) 11/24/20 12/15/22 Chandrika Wakefield Personal Advocate & Liaison (PAL) 12/16/22 10/05/23 documented as of this encounter
--- OUTSIDE RECORDS SUMMARY | 2025-02-05 06:36 | XMS_ITS | Encounter Summary ---
Author Organization [place] Address [address] [facility] [place] [address] Care Team Providers Care Academic Support Coordinator Name Role Phone Frw, None Unavailable Unavailable Allyson Bliss MD Primary Care Provider [phone] Allyson Bliss MD Unavailable [phone] Odilia Valle Unavailable Unavailable Chandrika Wakefield Unavailable Unavailable Reason for Visit * Reason Comments Medication Refill Encounter Details Date Type Department Care Team (Late st Contact Info) Description 01/12/2022 Refill [facility] [place] [address] [place] [address] Drive [address] DAQUAN Mendoza [phone] Allyson Bliss MD [address] [place] [address] [place] BEAN [address] Medication Refill Social History Tobacco Use Types Packs/Day Years Used Date Smoking Tobacco: Former Smokeless Tobacco: Never Comments:smoked 30 years ago Alcohol Use Standard Drinks/Week Comments No 0 (1 standard drink = 0.6 oz pur e alcohol) PHQ-2 Answer Date Recorded PHQ-2 Score 3 06/21/2021 Comments No Sex and Gender Information Value Date Recorded Sex Assigned at Female 07/13/2020 9:19 AM ACCOUNTING CONSULTANT Legal Sex Female 3:56 AM ACCOUNTING CONSULTANT Gender Identity Female 07/13/2020 9:19 AM ACCOUNTING CONSULTANT Sexual Orientation Straight 07/13/2020 9: 19 AM ACCOUNTING CONSULTANT 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 * Telephone Encounter - Funmi Greer Mai, MD - 01/13/2022 2:08 PM CDT Holly refill provided today - pt needs appt within 90 days (with Dr. Melton or any covering provider) prior to further refills. Please call to inform and schedule. * Telephone Encounter - Gypsy Myers RN - 01/13/2022 11:45 AM CDT Routing refill request to provider for review/approval because: Holly given x1 and patient did not follow up, please advise Labs not current: BP labs Failed BP protocol Gypsy Myers RN, BSN [facility] documented in this encounter Plan of Treatment Not on file documented as of this encounter Visit Diagnoses Diagnosis Hypertension, benign Essential hypertension, benign documented in this encounter Additional Health Concerns Assessment Noted Time PHQ-9 Depression Total Score: 5 06/21/20 21 2:19 PM CDT documented as of this encounter Care Teams Academic Support Coordinator Relationship Specialty Start Date End Date Frw, None PCP - Obstetrics/Gynecology Family Practice 12/07/11 [place] [address] [place] [address] DR MENDOZA, DAQUAN [address] PCP - General Internal Medicine 01/28/20 10/05/23 Allyson Bliss MD [address] [place] [address] DR MENDOZA, DAQUAN [address] Assigned PCP 12/27/19 10/26/24 Odilia Valle Personal Advocate & Liaison (PAL) 11/24/20 12/15/22 Chandrika Wakefield Personal Advocate & Liaison (PAL) 12/16/22 10/05/23 documented as of this encounter
--- OUTSIDE RECORDS SUMMARY | 2025-02-05 06:36 | XMS_ITS | Encounter Summary ---
Author Organization [place] Address [address] [place] [address] Care Team Providers Care Emblem Maker Name Role Phone Frw, None Unavailable Unavailable Allyson Bliss MD Primary Care Provider [phone] Allyson Bliss MD Unavailable [phone] Hernesto Sue Unavailable Unavailable . Odilia Lockhart Unavailable Unavailable Chandrika Wakefield Unavailable Unavailable Reason for Visit * Reason Comments Medication Refill Encounter Details Date Type Department Care Team (Late st Contact Info) Description 06/30/2020 Refill [facility] [place] [address] [facility] [address] [place]QU[place] Mendo[place] [phone] [place] [address] [place] [address] DAQUAN BEAN [id number] Medication Refill Social History Tobacco Use Types Packs/Day Years Used Date Smoking Tobacco: Former Smokeless Tobacco: Never Comments:smoked 30 years ago Alcohol Use Standard Drinks/Week Comments No 0 (1 standard drink = 0.6 oz pur e alcohol) PHQ-2 Answer Date Recorded PHQ-2 Score 2 05/03/2020 Comments No Sex and Gender Information Value Date Recorded Sex Assigned at Female 07/13/2020 9:19 AM GEOSPATIAL SPECIALIST Legal Sex Female 3:56 AM GEOSPATIAL SPECIALIST Gender Identity Female 07/13/2020 9:19 AM GEOSPATIAL SPECIALIST Sexual Orientation Straight 07/13/2020 9: 19 AM GEOSPATIAL SPECIALIST 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 Has future appointment scheduled in 1 week documented in this encounter Plan of Treatment Not on file documented as of this encounter Visit Diagnoses Diagnosis Anxiety Anxiety state, unspecified Adjustment disorder with mixed anxiety and depressed mood documented in this encounter Additional Health Concerns Assessment Noted Time PHQ-9 Depression Total Score: 9 05/04/20 20 3:57 PM CDT documented as of this encounter Care Teams Emblem Maker Relationship Specialty Start Date End Date Frw, None PCP - Obstetrics/Gynecology Family Practice 12/07/11 Allyson Bliss MD [address] [facility] [place] [address] PCP - General Internal Medicine 01/28/20 10/05/23 Allyson Bliss MD [address] [facility] [place] [address] Assigned PCP 12/27/19 10/26/24 Hernesto Sue Personal Advocate & Liaison (PAL) 10/13/20 11/23/20 Odilia Valle Personal Advocate & Liaison (PAL) 11/24/20 12/15/22 Chandrika Wakefield Personal Advocate & Liaison (PAL) 12/16/22 10/05/23 documented as of this encounter
--- OUTSIDE RECORDS SUMMARY | 2025-02-05 06:36 | XMS_ITS | Encounter Summary ---
Author Organization [place] Address [address] [facility] [place] [address] Care Team Providers Care Fabrication Specialist Name Role Phone Destiney Taylor MD Unavailable [phone] Kai Castaneda MD Primary Care Provider [phone] Russell Chiang MD Unavailable [phone] Frw, None Unavailable Unavailable Frw, None Primary Care Provider Unavailpatricio e Allyson Bliss MD Primary Care Provider [phone] Allyson Bliss MD Unavailable [phone] Hernesto Sue Unavailable Unavailable Odilia Valle Unavailable Unavailable Chandrika Wakefield Unavailable Unavailable Encounter Details Date Type Department Care Team (Late st Contact Info) Description 09/23/2009 MyC Medical Advice [employer] in [place] SAS ANALYST [address] [place] [address] Destiney Taylor MD [facility] [address] [place], [place] [id number] Social History Tobacco Use Types Packs/Day Years Used Date Smoking Tobacco: Former Comments:smoked 30 years ago Alcohol Use Standard Drinks/Week Comments No 0 (1 standard drink = 0.6 oz pur e alcohol) Comments No Sex and Gender Information Value Date Recorded Sex Assigned at Female 07/13/2020 9:19 AM ROUGH RIB GRADER Legal Sex Female 3:56 AM ROUGH RIB GRADER Gender Identity Female 07/13/2020 9:19 AM ROUGH RIB GRADER Sexual Orientation Straight 07/13/2020 9: 19 AM ROUGH RIB GRADER 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 documented as of this encounter Plan of Treatment Not on file documented as of this encounter Visit Diagnoses Not on filedocumented in this encounter Care Teams Fabrication Specialist Relationship Specialty Start Date End Date Destiney Taylor MD PCP - Obstetrics/Gynecology 09/28/06 12/06/11 Kai Castaneda MD [facility] [place] [address] [facility] [address] [place] [address] PCP - General 09/17/09 08/15/13 Russell Chiang MD [address] [place] [address] PCP - Surgery Surgery 08/13/10 08/04/14 Frw, None PCP - Obstetrics/Gynecology Family Practice 12/07/11 Frw, None PCP - General Family Practice 08/16/13 05/04/17 Allyson Bliss MD [address] [place] [address] DAQUAN BEAN [address] PCP - General Internal Medicine 01/28/20 10/05/23 Allyson Bliss MD [address] [place] [address] DAQU[place] BEAN [address] Assigned PCP 12/27/19 10/26/24 Hernesto Sue Personal Advocate & Liaison (PAL) 10/13/20 11/23/20 Odilia Valle Personal Advocate & Liaison (PAL) 11/24/20 12/15/22 Chandrika Wakefield Personal Advocate & Liaison (PAL) 12/16/22 10/05/23 documented as of this encounter
--- OUTSIDE RECORDS SUMMARY | 2025-02-05 06:36 | XMS_ITS | Encounter Summary ---
Author Organization [place] Address [address] [facility] [place] [address] Care Team Providers Care Buying Intern Name Role Phone Frw, None Unavailable Unavailable Allyson Bliss MD Primary Care Provider [phone] Allyson Bliss MD Unavailable [phone] Odilia Valle Unavailable Unavailable Chandrika Wakefield Unavailable Unavailable Encounter Details Date Type Department Care Team (Late st Contact Info) Description 03/22/2021 [facility] [place] [address] [place] [phone] Meka Quinones, LATISHA Social History Tobacco Use Types Packs/Day Years Used Date Smoking Tobacco: Former Smokeless Tobacco: Never Comments:smoked 30 years ago Alcohol Use Standard Drinks/Week Comments No 0 (1 standard drink = 0.6 oz pur e alcohol) PHQ-2 Answer Date Recorded PHQ-2 Total Score (Adult) - Positive if 3 or more points; Administer PHQ-9 if positive 2 11/24/2020 Comments No Sex and Gender Information Value Date Recorded Sex Assigned at Female 07/13/2020 9:19 AM FOOD SERVICE AIDE Legal Sex Female 3:56 AM FOOD SERVICE AIDE Gender Identity Female 07/13/2020 9:19 AM FOOD SERVICE AIDE Sexual Orientation Straight 07/13/2020 9: 19 AM FOOD SERVICE AIDE 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, 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 Not on file documented as of this encounter Plan of Treatment Not on file documented as of this encounter Visit Diagnoses Not on filedocumented in this encounter Additional Health Concerns Assessment Noted Time PHQ-9 Depression Total Score: 5 11/26/19 21 7:02 AM CDT documented as of this encounter Care Teams Buying Intern Relationship Specialty Start Date End Date Frw, None PCP - Obstetrics/Gynecology Family Practice 12/07/11 Allyson Bliss MD [address] [place] [address] DA[place] BE[place] [address] PCP - General Internal Medicine 01/28/20 10/05/23 Allyson Bliss MD [address] [place] [address] DA[place] BEAN [address] Assigned PCP 12/27/19 10/26/24 Odilia Valle Personal Advocate & Liaison (PAL) 11/24/20 12/15/22 Chandrika Wakefield Personal Advocate & Liaison (PAL) 12/16/22 10/05/23 documented as of this encounter
--- OUTSIDE RECORDS SUMMARY | 2025-02-05 06:36 | XMS_ITS | Encounter Summary ---
Author Organization [place] Address [address] [facility] [address] Care Team Providers Care Administration Manager Name Role Phone Frw, None Unavailable Unavailable Allyson Bliss MD Primary Care Provider [phone] Allyson Bliss MD Unavailable [phone] Odilia Valle Unavailable Unavailable Chandrika Wakefield Unavailable Unavailable Reason for Visit * Reason Comments Medication Refill Encounter Details Date Type Department Care Team (Late st Contact Info) Description 10/09/2021 Refill [facility] [place] [address] [place] [address] Drive [address] [place] Mendoza [phone] Allyson Bliss MD [address] [place] [address] [place] BE[place] [address] Medication Refill Social History [...] Sex Assigned at Female 07/13/2020 9:19 AM GRAIN DISTRIBUTOR Legal Sex Female 3:56 AM GRAIN DISTRIBUTOR Gender Identity Female 07/13/2020 9:19 AM GRAIN DISTRIBUTOR Sexual Orientation Straight 07/13/2020 9: 19 AM GRAIN DISTRIBUTOR 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 N DISTRIBUTOR * Telephone Encounter - Gypsy Myers RN - 10/11/2021 3:37 PM CST Medication is being filled for 1 time refill only due to: Patient needs to be seen because it has been more than one year since last visit for F2F/BP/BP labs Prescription approved per [facility] Refill Protocol. Routed to for scheduling Gypsy Myers RN, BSN [facility] N DISTRIBUTOR documented in this encounter Plan of Treatment Not on file documented as of this encounter Visit Diagnoses Diagnosis Hypertension, benign Essential hypertension, benign documented in this encounter Additional Health Concerns Assessment Noted Time PHQ-9 Depression Total Score: 5 06/21/20 21 2:19 PM CDT documented as of this encounter Care Teams Administration Manager Relationship Specialty Start Date End Date Frw, None PCP - Obstetrics/Gynecology Family Practice 12/07/11 Allyson Bliss MD [address] [place] [address] [place]UQ[place] BEAN [address] PCP - General Internal Medicine 01/28/20 10/05/23 Allyson Bliss MD [address] [place] [address] DAQU[place] BEAN [address] Assigned PCP 12/27/19 10/26/24 Odilia Valle Personal Advocate & Liaison (PAL) 11/24/20 12/15/22 Chandrika Wakefield Personal Advocate & Liaison (PAL) 12/16/22 10/05/23 documented as of this encounter
--- OUTSIDE RECORDS SUMMARY | 2025-02-05 06:36 | XMS_ITS | Encounter Summary ---
Author Organization [place] Address [address] [facility] [place] [address] Care Team Providers Care Loss Control Representative Name Role Phone Destiney Taylor MD Unavailable [phone] Kai Castaneda MD Primary Care Provider [phone] Russell Chiang MD Unavailable [phone] Frw, None Unavailable Unavailable Frw, None Primary Care Provider Unavailpatricio e Allyson Bliss MD Primary Care Provider [phone] Allyson Bliss MD Unavailable [phone] Hernesto Sue Unavailable Unavailable Odilia Valle Unavailable Unavailable Chandrika Wakefield Unavailable Unavailable Encounter Details Date Type Department Care Team (Late st Contact Info) Description 09/18/2009 [facility] Medical Advice [facility] in [place] INFORMATION SYSTEMS PROJECT MANAGER [address] [place] [address] Destiney Taylor MD [facility] [address] [place], [place] [phone] Social History Tobacco Use Types Packs/Day Years Used Date Smoking Tobacco: Former Comments:smoked 30 years ago Alcohol Use Standard Drinks/Week Comments No 0 (1 standard drink = 0.6 oz pur e alcohol) Comments No Sex and Gender Information Value Date Recorded Sex Assigned at Female 07/13/2020 9:19 AM IP ARCHITECT Legal Sex Female 3:56 AM IP ARCHITECT Gender Identity Female 07/13/2020 9:19 AM IP ARCHITECT Sexual Orientation Straight 07/13/2020 9: 19 AM IP ARCHITECT 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 documented as of this encounter Plan of Treatment Not on file documented as of this encounter Visit Diagnoses Not on filedocumented in this encounter Care Teams Loss Control Representative Relationship Specialty Start Date End Date Destiney Taylor MD PCP - Obstetrics/Gynecology 09/28/06 12/06/11 Kai Castaneda MD [facility] [place] [address] [facility] [address] [place] [address] PCP - General 09/17/09 08/15/13 Russell Chiang MD [address] [place] [address] PCP - Surgery Surgery 08/13/10 08/04/14 Frw, None PCP - Obstetrics/Gynecology Family Practice 12/07/11 Frw, None PCP - General Family Practice 08/16/13 05/04/17 Allyson Bliss MD [address] [place] [address] DAQU[place] BEAN [address] PCP - General Internal Medicine 01/28/20 10/05/23 Allyson Bliss MD [address] [place] [address] DAQU[place] BEAN [address] Assigned PCP 12/27/19 10/26/24 Hernesto Sue Personal Advocate & Liaison (PAL) 10/13/20 11/23/20 Odilia Valle Personal Advocate & Liaison (PAL) 11/24/20 12/15/22 Chandrika Wakefield Personal Advocate & Liaison (PAL) 12/16/22 10/05/23 documented as of this encounter
--- OUTSIDE RECORDS SUMMARY | 2025-02-05 06:36 | XMS_ITS | Encounter Summary ---
Author Organization [place] Address [address] [facility] [place] [address] Care Team Providers Care Document Control Associate Name Role Phone Destiney Taylor MD Unavailable [phone] Kai Castaneda MD Primary Care Provider [phone] Russell Chiang MD Unavailable [phone] Frw, None Unavailable Unavailable Frw, None Primary Care Provider Unavailpatricio e Allyson Bliss MD Primary Care Provider [phone] Allyson Bliss MD Unavailable [phone] Hernesto Sue Unavailable Unavailable Odilia Valle Unavailable Unavailable Chandrika Wakefield Unavailable Unavailable Encounter Details Date Type Department Care Team (Latest Contact Info) Description 05/14/2010 MyC Medical Advice [facility] [address] [place] [phone] Kai Castaneda MD [facility] [address] [facility] [address] [place], [place] [phone] Diverticulitis of Colon (Primary Dx); Special Screening for Malignant Neoplasms, Colon; Abdominal Pain, Generalized Social History Tobacco Use Types Packs/Day Years Used Date Smoking Tobacco: Former Comments:smoked 30 years ago Alcohol Use Standard Drinks/Week Comments No 0 (1 standard drink = 0.6 oz pur e alcohol) Comments No Sex and Gender Information Value Date Recorded Sex Assigned at Female 07/13/2020 9:19 AM INTEGRATION AIDE Legal Sex Female 3:56 AM INTEGRATION AIDE Gender Identity Female 07/13/2020 9:19 AM INTEGRATION AIDE Sexual Orientation Straight 07/13/2020 9: 19 AM INTEGRATION AIDE 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 documented as of this encounter Plan of Treatment Not on file documented as of this encounter Visit Diagnoses Diagnosis Diverticulitis of colon- Primary Diverticulitis of colon (without mention of hemorrhage) Special screening for malignant neoplasms, colon Abdominal pain, generalized documented in this encounter Care Teams Document Control Associate Relationship Specialty Start Date End Date Destiney Taylor MD PCP - Obstetrics/Gynecology 09/28/06 12/06/11 Kai Castaneda MD [facility] [address] [facility] [address] [place] [address] PCP - General 09/17/09 08/15/13 Russell Chiang MD [address] [place] [address] PCP - Surgery Surgery 08/13/10 08/04/14 Frw, None PCP - Obstetrics/Gynecology Family Practice 12/07/11 Frw, None PCP - General Family Practice 08/16/13 05/04/17 Allyson Bliss MD [address] [place] [address] DAQUAN BEAN [address] PCP - General Internal Medicine 01/28/20 10/05/23 Allyson Bliss MD [address] [place] [address] DAQU[place] BEAN [address] Assigned PCP 12/27/19 10/26/24 Hernesto Sue Personal Advocate & Liaison (PAL) 10/13/20 11/23/20 Odilia Valle Personal Advocate & Liaison (PAL) 11/24/20 12/15/22 Chandrika Wakefield Personal Advocate & Liaison (PAL) 12/16/22 10/05/23 documented as of this encounter
--- OUTSIDE RECORDS SUMMARY | 2025-02-05 06:36 | XMS_ITS | Encounter Summary ---
Author Organization [place] Address [address] [facility] [place] [address] Care Team Providers Care Admissions Supervisor Name Role Phone Frw, None Unavailable Unavailable Allyson Bliss MD Primary Care Provider [phone] Allyson Bliss MD Unavailable Hernesto Sue Unavailable Unavailable Odilia Valle Unavailable Unavailable Chandrika Wakefield Unavailable Unavailable Encounter Details Date Type Department Care Team (Late st Contact Info) Description 03/22/2020 [facility] Medical Advice [facility] [place] [address] [place] [address] [address] [place] [phone] [place] [address] [place] [address] DAQU[place] BEAN [address] Social History Tobacco Use Types Packs/Day Years Used Date Smoking Tobacco: Former Smokeless Tobacco: Never Comments:smoked 30 years ago Alcohol Use Standard Drinks/Week Comments No 0 (1 standard drink = 0.6 oz pur e alcohol) PHQ-2 Answer Date Recorded PHQ-2 Score 0 01/21/2020 Comments No Sex and Gender Information Value Date Recorded Sex Assigned at Female 07/13/2020 9:19 AM PUBLICITY MANAGER Legal Sex Female 3:56 AM PUBLICITY MANAGER Gender Identity Female 07/13/2020 9:19 AM PUBLICITY MANAGER Sexual Orientation Straight 07/13/2020 9 :19 AM PUBLICITY MANAGER 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 No / Unsure 02/25/2020 11:04 AM CDT documented as of this encounter Plan of Treatment Not on file documented as of this encounter Visit Diagnoses Not on filedocumented in this encounter Additional Health Concerns Assessment Noted Time PHQ-9 Depression Total Score: 7 01/19/20 20 7:03 AM CDT documented as of this encounter Care Teams Admissions Supervisor Relationship Specialty Start Date End Date Frw, None PCP - Obstetrics/Gynecology Family Practice 12/07/11 Allyson Bliss MD [address] [place] [address] [place] [address] PCP - General Internal Medicine 01/28/20 10/05/23 Allyson Bliss MD [address] [place] [address] DA[place] BEAN [address] Assigned PCP 12/27/19 10/26/24 Hernesto Sue Personal Advocate & Liaison (PAL) 10/13/20 11/23/20 Odilia Valle Personal Advocate & Liaison (PAL) 11/24/20 12/15/22 Chandrika Wakefield Personal Advocate & Liaison (PAL) 12/16/22 10/05/23 documented as of this encounter
--- OUTSIDE RECORDS SUMMARY | 2025-02-05 06:36 | XMS_ITS | Encounter Summary ---
Author Organization [place] Address [address] [facility] [place] [address] Care Team Providers Care Clinical Psychology Teacher Name Role Phone Destiney Taylor MD Unavailable [phone] Kai Castaneda MD Primary Care Provider [phone] Russell Chiang MD Unavailable [phone] Frw, None Unavailable Unavailable Frw, None Primary Care Provider Unavailpatricio e Allyson Bliss MD Primary Care Provider [phone] Allyson Bliss MD Unavailable [phone] Hernesto Sue Unavailable Unavailable Odilia Valle Unavailable Unavailable Chandrika Wakefield Unavailable Unavailable Encounter Details Date Type Department Care Team (Late st Contact Info) Description 09/23/2009 MyC Medical Advice [facility] [place] CORPORATE HEALTH CONSULTANT [address] [place] [address] Destiney Taylor MD [facility] [address] [place], [place] [id number] Social History Tobacco Use Types Packs/Day Years Used Date Smoking Tobacco: Former Comments:smoked 30 years ago Alcohol Use Standard Drinks/Week Comments No 0 (1 standard drink = 0.6 oz pur e alcohol) Comments No Sex and Gender Information Value Date Recorded Sex Assigned at Female 07/13/2020 9:19 AM CONTINUING EDUCATION DIRECTOR Legal Sex Female 3:56 AM CONTINUING EDUCATION DIRECTOR Gender Identity Female 07/13/2020 9:19 AM CONTINUING EDUCATION DIRECTOR Sexual Orientation Straight 07/13/2020 9: 19 AM CONTINUING EDUCATION DIRECTOR 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 documented as of this encounter Plan of Treatment Not on file documented as of this encounter Visit Diagnoses Not on filedocumented in this encounter Care Teams Clinical Psychology Teacher Relationship Specialty Start Date End Date Destiney Taylor MD PCP - Obstetrics/Gynecology 09/28/06 12/06/11 Kai Castaneda MD [facility] [place] [address] [facility] [address] [place] [address] PCP - General 09/17/09 08/15/13 Russell Chiang MD [address] [place] [address] PCP - Surgery Surgery 08/13/10 08/04/14 Frw, None PCP - Obstetrics/Gynecology Family Practice 12/07/11 Frw, None PCP - General Family Practice 08/16/13 05/04/17 Allyson Bliss MD [address] [place] [address] [place] [address] PCP - General Internal Medicine 01/28/20 10/05/23 Allyson Bliss MD [address] [place] [address] [place] [address] Assigned PCP 12/27/19 10/26/24 Hernesto Sue Personal Advocate & Liaison (PAL) 10/13/20 11/23/20 Odilia Valle Personal Advocate & Liaison (PAL) 11/24/20 12/15/22 Chandrika Wakefield Personal Advocate & Liaison (PAL) 12/16/22 10/05/23 documented as of this encounter
--- OUTSIDE RECORDS SUMMARY | 2025-02-05 06:36 | XMS_ITS | Encounter Summary ---
Author Organization [place] Address [address] [place] [address] Care Team Providers Care Manufacturing Assembler Name Role Phone Destiney Taylor MD Unavailable [phone] Kai Castaneda MD Primary Care Provider [phone] Russell Chiang MD Unavailable [phone] Frw, None Unavailable Unavailable Frw, None Primary Care Provider Unavailpatricio e Allyson Bliss MD Primary Care Provider [phone] Allyson Bliss MD Unavailable [phone] Hernesto Sue Unavailable Unavailable Odilia Valle Unavailable Unavailable Chandrika Wakefield Unavailable Unavailable Reason for Visit * Reason Onset Date Comments Refill Request 03/24/2010 Encounter Details Date Type Department Care Team (Late st Contact Info) Description 03/24/2010 MyC Refill [facility] [place] [facility] [address] [place] [address] Kai Castaneda MD [facility] [address] [place], [place] [id number] Refill Request Social History Tobacco Use Types Packs/Day Years Used Date Smoking Tobacco: Former Comments:smoked 30 years ago Alcohol Use Standard Drinks/Week Comments No 0 (1 standard drink = 0.6 oz pur e alcohol) Comments No Sex and Gender Information Value Date Recorded Sex Assigned at Female 07/13/2020 9:19 AM AUTOMATED LOGISTICS SPECIALIST Legal Sex Female 3:56 AM AUTOMATED LOGISTICS SPECIALIST Gender Identity Female 07/13/2020 9:19 AM AUTOMATED LOGISTICS SPECIALIST Sexual Orientation Straight 07/13/2020 9: 19 AM AUTOMATED LOGISTICS SPECIALIST 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 documented as of this encounter Miscellaneous Notes * Telephone Encounter - Shayna Garner) - 03/24/2010 4:53 PM CDT Unable to approve medication per the RN refill protocol due to: - Plan of care unclear Last visit:09/16/09 BP Readings from Last 1 Encounters: 10/14/2009 118/72 CAD/HTN and/or CHF labs: CR 0.68 09/30/2009 POTASSIUM 4.9 09/30/2009 Routing encounter to in 's absence * Telephone Encounter - Shayna Garner) - 03/24/2010 4:44 PM CDT Message from [facility]: Radha Aguero would like a refill of the following medications: LISINOPRIL 40 MG OR TABS [Kai Castaneda MD] Preferred pharmacy: [address] Comment: Dr Castaneda only gave me enough lisinopril for 15 days. I never got any letter or message from him asto why . I am assuming he wants an appointment with me. I understand he is gone til april. I will be out as of tomorrow. Could I please get more lisinopril by MondayMarch 26 in the a.m.Thank you, Radha Aguero documented in this encounter Plan of Treatment Not on file documented as of this encounter Visit Diagnoses Diagnosis Hypertension, benign Essential hypertension, benign documented in this encounter Care Teams Manufacturing Assembler Relationship Specialty Start Date End Date Destiney Taylor MD PCP - Obstetrics/Gynecology 09/28/06 12/06/11 Kai Castaneda MD [facility] [place] [address] [place] [address] PCP - General 09/17/09 08/15/13 Russell Chiang MD [address] [place] [address] PCP - Surgery Surgery 08/13/10 08/04/14 Frw, None PCP - Obstetrics/Gynecology Family Practice 12/07/11 Frw, None PCP - General Family Practice 08/16/13 05/04/17 Allyson Bliss MD [address] [place] [address] [place] [address] PCP - General Internal Medicine 01/28/20 10/05/23 Allyson Bliss MD [address] [place] [address] [place] [address] Assigned PCP 12/27/19 10/26/24 Hernesto Sue Personal Advocate & Liaison (PAL) 10/13/20 11/23/20 Odilia Valle Personal Advocate & Liaison (PAL) 11/24/20 12/15/22 Chandrika [place]field Personal Advocate & Liaison (PAL) 12/16/22 10/05/23 documented as of this encounter
--- OUTSIDE RECORDS SUMMARY | 2025-02-05 06:36 | XMS_ITS | Encounter Summary ---
Author Organization [facility] Address [address] [facility] [place] [address] Care Team Providers Care Shipping And Receiving Clerk Name Role Phone Destiney Taylor MD Unavailable [phone] Kai Castaneda MD Primary Care Provider [phone] Russell Chiang MD Unavailable [phone] Frw, None Unavailable Unavailable Frw, None Primary Care Provider Unavailpatricio e lAlyson Bliss MD Primary Care Provider [phone] Allyson Bliss MD Unavailable [phone] Hernesto Sue Unavailable Unavailable Odilia Valle Unavailable Unavailable Chandrika Wakefield Unavailable Unavailable Reason for Referral * Specialty Diagnoses / Procedures Referred By John rae Referred To Contact Diagnoses Anal fissure Kai Castaneda MD [facility] [address] [facility] [address] [place] [address] Phone: tel: fax: Referral ID Status Reason Start Date Expiration Date Visits Re quested Visits Authorized Comments Your provider has referred you to: Dr. Bob Chiang, General Surgery for rectal pain and prior anal fissure. patient request to see you specifically. Please be aware that coverage of these services is subject to the terms and limitations of your health insurance plan. Call member services at your health plan with any benefit or coverage questions. Please bring the following to your appointment: >> Any x-rays, CTs or MRIs which have been performed. Contact the facility where they were done to arrange for chicken picker prior to your scheduled appointment. Any new CT, MRI or other procedures ordered by your specialist must be performed at a [facility] facility or coordinated by your clinic's referral office. >> List of current medications >> This referral request >> Any documents/labs given to you for this referral DESIGNER Reason for Visit * Reason Onset Date Comments MyChart Communication 09/20/2010 diverticul osis? Encounter Details Date Type Department Care Team (Latest Contact Info) Description 09/20/2010 MyC Medical Advice [facility] [address] [place] [phone] Kai Castaneda MD [address] [place], [place] [phone] MyChart Communication (diverticulosis?) Social History Tobacco Use Types Packs/Day Years Used Date Smoking Tobacco: Former Comments:smoked 30 years ago Alcohol Use Standard Drinks/Week Comments No 0 (1 standard drink = 0.6 oz pur e alcohol) Comments No Sex and Gender Information Value Date Recorded Sex Assigned at Female 07/13/2020 9:19 AM SET DESIGNER Legal Sex Female 3:56 AM SET DESIGNER Gender Identity Female 07/13/2020 9:19 AM SET DESIGNER Sexual Orientation Straight 07/13/2020 9: 19 AM SET DESIGNER 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 documented as of this encounter Plan of Treatment Not on file documented as of this encounter Visit Diagnoses Diagnosis Diverticulitis of colon- Primary Diverticulitis of colon (without mention of hemorrhage) Anal fissure documented in this encounter Care Teams Shipping And Receiving Clerk Relationship Specialty Start Date End Date Destiney Taylor MD PCP - Obstetrics/Gynecology 09/28/06 12/06/11 Kai Castaneda MD [facility] [place] [address] [place] [address] PCP - General 09/17/09 08/15/13 Russell Chiang MD [address] [place] [address] PCP - Surgery Surgery 08/13/10 08/04/14 Frw, None PCP - Obstetrics/Gynecology Family Practice 12/07/11 Frw, None PCP - General Family Practice 08/16/13 05/04/17 [place] [address] [place] [address] [place] [address] PCP - General Internal Medicine 01/28/20 10/05/23 Allyson Bliss MD [address] [place] [address] [place] [address] Assigned PCP 12/27/19 10/26/24 Hernesto Sue Personal Advocate & Liaison (PAL) 10/13/20 11/23/20 Odilia Valle Personal Advocate & Liaison (PAL) 11/24/20 12/15/22 Chandrika [place] Personal Advocate & Liaison (PAL) 12/16/22 10/05/23 documented as of this encounter
--- OUTSIDE RECORDS SUMMARY | 2025-02-05 06:36 | XMS_ITS | Encounter Summary ---
Author Organization [place] Address [address] [facility] [address] Care Team Providers Care Fine Jewelry Sales Associate Name Role Phone Frw, None Unavailable Unavailable Allyson Bliss MD Primary Care Provider [phone] Allyson Bliss MD Unavailable Odilia Valle Unavailable Unavailable Chandrika Wakefield Unavailable Unavailable Encounter Details Date Type Department Care Team (Late st Contact Info) Description 01/13/2022 [facility] [place] [address] [place] [phone] Shauna Ambriz Social History Tobacco Use Types Packs/Day Years Used Date Smoking Tobacco: Former Smokeless Tobacco: Never Comments:smoked 30 years ago Alcohol Use Standard Drinks/Week Comments No 0 (1 standard drink = 0.6 oz pur e alcohol) PHQ-2 Answer Date Recorded PHQ-2 Score 3 06/21/2021 Comments No Sex and Gender Information Value Date Recorded Sex Assigned at Female 07/13/2020 9:19 AM RADIO TOWER TECHNICIAN Legal Sex Female 3:56 AM RADIO TOWER TECHNICIAN Gender Identity Female 07/13/2020 9:19 AM RADIO TOWER TECHNICIAN Sexual Orientation Straight 07/13/2020 9: 19 AM RADIO TOWER TECHNICIAN Occupation Industry Job Start Date Job End [...] documented as of this encounter Care Teams Fine Jewelry Sales Associate Relationship Specialty Start Date End Date Frw, None PCP - Obstetrics/Gynecology Family Practice 12/07/11 Allyson Bliss MD [address] [facility] [place] [address] PCP - General Internal Medicine 01/28/20 10/05/23 Allyson Bliss MD [address] [facility] [place] [address] Assigned PCP 12/27/19 10/26/24 Odilia Valle Personal Advocate & Liaison (PAL) 11/24/20 12/15/22 Chandrika [place] Personal Advocate & Liaison (PAL) 12/16/22 10/05/23 documented as of this encounter
--- OUTSIDE RECORDS SUMMARY | 2025-02-05 06:36 | XMS_ITS | Encounter Summary ---
Author Organization [place] Address [address] [place] [address] Care Team Providers Care Weather Analyst Name Role Phone Frw, None Unavailable Unavailable Allyson Bliss MD Primary Care Provider [phone] Allyson Bliss MD Unavailable [phone] Odilia Valle Unavailable Unavailable Chandrika [place] Unavailable Unavailable Encounter Details Date Type Department Care Team (Late st Contact Info) Description 09/29/2021 [facility] [place] [address] [place] [phone] Shauna Ambriz Social History Tobacco Use Types Packs/Day Years Used Date Smoking Tobacco: Former Smokeless Tobacco: Never Comments:smoked 30 years ago Alcohol Use Standard Drinks/Week Comments No 0 (1 standard drink = 0.6 oz pur e alcohol) PHQ-2 Answer Date Recorded PHQ-2 Score 3 06/21/2021 Comments No Sex and Gender Information Value Date Recorded Sex Assigned at Female 07/13/2020 9:19 AM DIRECTOR STAFFING Legal Sex Female 3:56 AM DIRECTOR STAFFING Gender Identity Female 07/13/2020 9:19 AM DIRECTOR STAFFING Sexual Orientation Straight 07/13/2020 9: 19 AM DIRECTOR STAFFING Occupation Industry Job Start Date Job End [...] documented as of this encounter Care Teams Weather Analyst Relationship Specialty Start Date End Date Frw, None PCP - Obstetrics/Gynecology Family Practice 12/07/11 Allyson Bliss MD [address] [facility] [place] [address] PCP - General Internal Medicine 01/28/20 10/05/23 Allyson Bliss MD [address] [facility] [place] [address] Assigned PCP 12/27/19 10/26/24 Odilia Valle Personal Advocate & Liaison (PAL) 11/24/20 12/15/22 Chandrika [place] Personal Advocate & Liaison (PAL) 12/16/22 10/05/23 documented as of this encounter
--- OUTSIDE RECORDS SUMMARY | 2025-02-05 06:36 | XMS_ITS | Encounter Summary ---
Author Organization [place] Address [address] [facility] [place] [address] Care Team Providers Care Truck Shop Mechanic Name Role Phone Frw, None Unavailable Unavailable Allyson Bliss MD Primary Care Provider [phone] Allyson Bliss MD Unavailable Odilia Valle Unavailable Unavailable Chandrika [place]field Unavailable Unavailable Encounter Details Date Type Department Care Team (Late st Contact Info) Description 03/26/2021 [facility] [place] [address] [place] [phone] Shauna Ambriz Social History Tobacco Use Types [...] Sex Assigned at Female 07/13/2020 9:19 AM RETAIL ADVERTISING EXECUTIVE Legal Sex Female 3:56 AM RETAIL ADVERTISING EXECUTIVE Gender Identity Female 07/13/2020 9:19 AM RETAIL ADVERTISING EXECUTIVE Sexual Orientation Straight 07/13/2020 9: 19 AM RETAIL ADVERTISING EXECUTIVE Occupation Industry Job Start Date Job End [...] documented as of this encounter Care Teams Truck Shop Mechanic Relationship Specialty Start Date End Date Frw, None PCP - Obstetrics/Gynecology Family Practice 12/07/11 Allyson Bliss MD [address] [place] [address] [place] [address] PCP - General Internal Medicine 01/28/20 10/05/23 Allyson Bliss MD [address] [place] [address] [place] [address] Assigned PCP 12/27/19 10/26/24 Odilia Valle Personal Advocate & Liaison (PAL) 11/24/20 12/15/22 Chandrika [place] Personal Advocate & Liaison (PAL) 12/16/22 10/05/23 documented as of this encounter
--- OUTSIDE RECORDS SUMMARY | 2025-02-05 06:36 | XMS_ITS | Encounter Summary ---
Author Organization [place] Address [address] [facility] [place] [address] Care Team Providers Care Meterman Name Role Phone Destiney Taylor MD Unavailable [phone] Kai Castaneda MD Primary Care Provider [phone] Russell Chiang MD Unavailable [phone] Frw, None Unavailable Unavailable Frw, None Primary Care Provider Unavailpatricio e Allyson Bliss MD Primary Care Provider [phone] Allyson Bliss MD Unavailable [phone] Hernesto Sue Unavailable Unavailable Odilia Valle Unavailable Unavailable Chandrika [place] Unavailable Unavailable Encounter Details Date Type Department Care Team (Late st Contact Info) Description 07/06/2009 MyC Medical Advice [facility] [place] PROCESS MACHINE OPERATOR [address] [place] [address] Destiney Taylor MD [facility] [address] [place], [place] [phone] Anxiety (Primary Dx) Social History Tobacco Use Types Packs/Day Years Used Date Smoking Tobacco: Former Comments:smoked 30 years ago Alcohol Use Standard Drinks/Week Comments No 0 (1 standard drink = 0.6 oz pur e alcohol) Comments No Sex and Gender Information Value Date Recorded Sex Assigned at Female 07/13/2020 9:19 AM FORESTRY PATROLMAN Legal Sex Female 3:56 AM FORESTRY PATROLMAN Gender Identity Female 07/13/2020 9:19 AM FORESTRY PATROLMAN Sexual Orientation Straight 07/13/2020 9: 19 AM FORESTRY PATROLMAN 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 documented as of this encounter Plan of Treatment Not on file documented as of this encounter Visit Diagnoses Diagnosis Anxiety- Primary Anxiety state, unspecified documented in this encounter Care Teams Meterman Relationship Specialty Start Date End Date Destiney Taylor MD PCP - Obstetrics/Gynecology 09/28/06 12/06/11 Kai Castaneda MD [facility] [place] [address] [facility] [address] [place] [address] PCP - General 09/17/09 08/15/13 Russell Chiang MD [address] [place] [address] PCP - Surgery Surgery 08/13/10 08/04/14 Frw, None PCP - Obstetrics/Gynecology Family Practice 12/07/11 Frw, None PCP - General Family Practice 08/16/13 05/04/17 Allyson Bliss MD [address] [place] [address] [place] [address] PCP - General Internal Medicine 01/28/20 10/05/23 Allyson Bliss MD [address] [place] [address] [place] [address] Assigned PCP 12/27/19 10/26/24 Hernesto Sue Personal Advocate & Liaison (PAL) 10/13/20 11/23/20 Odilia Valle Personal Advocate & Liaison (PAL) 11/24/20 12/15/22 Chandrika [facility] Personal Advocate & Liaison (PAL) 12/16/22 10/05/23 documented as of this encounter
--- OUTSIDE RECORDS SUMMARY | 2025-02-05 06:36 | XMS_ITS | Encounter Summary ---
Author Organization [place] Address [address] [place] [address] Care Team Providers Care Drone Operator Name Role Phone Frw, None Unavailable Unavailable Allyson Bliss MD Primary Care Provider [phone] Allyson Bliss MD Unavailable [phone] Hernesto Sue Unavailable Unavailable Odilia Valle Unavailable Unavailable Chandrika [place] Unavailable Unavailable Encounter Details Date Type Department Care Team (Late st Contact Info) Description 05/13/2020 [facility] [address] [place] [phone] [facility] Social History Tobacco Use Types Packs/Day Years Used Date Smoking Tobacco: Former Smokeless Tobacco: Never Comments:smoked 30 years ago Alcohol Use Standard Drinks/Week Comments No 0 (1 standard drink = 0.6 oz pur e alcohol) PHQ-2 Answer Date Recorded PHQ-2 Score 2 05/03/2020 Comments No Sex and Gender Information Value Date Recorded Sex Assigned at Female 07/13/2020 9:19 AM CARAVAN PARK AND CAMPING GROUND MANAGER Legal Sex Female 3:56 AM CARAVAN PARK AND CAMPING GROUND MANAGER Gender Identity Female 07/13/2020 9:19 AM CARAVAN PARK AND CAMPING GROUND MANAGER Sexual Orientation Straight 07/13/2020 9 :19 AM CARAVAN PARK AND CAMPING GROUND MANAGER 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 No / Unsure 05/04/2020 1:18 PM CDT documented as of this encounter Plan of Treatment Not on file documented as of this encounter Visit Diagnoses Not on filedocumented in this encounter Additional Health Concerns Assessment Noted Time PHQ-9 Depression Total Score: 9 05/04/20 20 3:57 PM CDT documented as of this encounter Care Teams Drone Operator Relationship Specialty Start Date End Date Frw, None PCP - Obstetrics/Gynecology Family Practice 12/07/11 Allyson Bliss MD [address] [facility] [place] [address] PCP - General Internal Medicine 01/28/20 10/05/23 Allyson Bliss MD [address] [facility] [place] [address] Assigned PCP 12/27/19 10/26/24 Hernesto Sue Personal Advocate & Liaison (PAL) 10/13/20 11/23/20 Odilia Valle Personal Advocate & Liaison (PAL) 11/24/20 12/15/22 Chandrika [facility] Personal Advocate & Liaison (PAL) 12/16/22 10/05/23 documented as of this encounter
--- OUTSIDE RECORDS SUMMARY | 2025-02-05 06:36 | XMS_ITS | Encounter Summary ---
Author Organization [place] Address [address] [facility] [place] [address] Care Team Providers Care Energy Systems Engineer Name Role Phone Destiney Taylor MD Unavailable [phone] Kai Castaneda MD Primary Care Provider [phone] Russell Chiang MD Unavailable [phone] Frw, None Unavailable Unavailable Frw, None Primary Care Provider Unavailpatricio e Allyson Bliss MD Primary Care Provider [phone] Allyson Bliss MD Unavailable [phone] Hernesto Sue Unavailable Unavailable Odilia Valle Unavailable Unavailable Chandrika [place] Unavailable Unavailable Encounter Details Date Type Department Care Team (Late st Contact Info) Description 09/23/2009 MyC Medical Advice [facility] [place] [facility] [address] [place] [phone] Kai Castaneda MD [facility] [address] [facility] [address] [place], [place] [phone] Social History Tobacco Use Types Packs/Day Years Used Date Smoking Tobacco: Former Comments:smoked 30 years ago Alcohol Use Standard Drinks/Week Comments No 0 (1 standard drink = 0.6 oz pur e alcohol) Comments No Sex and Gender Information Value Date Recorded Sex Assigned at Female 07/13/2020 9:19 AM OBIEE LEAD DEVELOPER Legal Sex Female 3:56 AM OBIEE LEAD DEVELOPER Gender Identity Female 07/13/2020 9:19 AM OBIEE LEAD DEVELOPER Sexual Orientation Straight 07/13/2020 9: 19 AM OBIEE LEAD DEVELOPER 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 documented as of this encounter Plan of Treatment Not on file documented as of this encounter Visit Diagnoses Not on filedocumented in this encounter Care Teams Energy Systems Engineer Relationship Specialty Start Date End Date Destiney Taylor MD PCP - Obstetrics/Gynecology 09/28/06 12/06/11 Kai Castaneda MD [facility] [place] [address] [place] [address] PCP - General 09/17/09 08/15/13 Russell Chiang MD [address] [place] [address] PCP - Surgery Surgery 08/13/10 08/04/14 Frw, None PCP - Obstetrics/Gynecology Family Practice 12/07/11 Frw, None PCP - General Family Practice 08/16/13 05/04/17 Allyson Bliss MD [address] [place] [address] [place]AN [address] PCP - General Internal Medicine 01/28/20 10/05/23 Allyson Bliss MD [address] [place] [address] [place] [address] Assigned PCP 12/27/19 10/26/24 Hernesto Sue Personal Advocate & Liaison (PAL) 10/13/20 11/23/20 Odilia Valle Personal Advocate & Liaison (PAL) 11/24/20 12/15/22 Chandrika [place] Personal Advocate & Liaison (PAL) 12/16/22 10/05/23 documented as of this encounter
--- OUTSIDE RECORDS SUMMARY | 2025-02-05 06:36 | XMS_ITS | Clinical Summary ---
Author Organization [facility] Address [address] [place] [address] Care Team Providers Care Environmental Remediation Engineer Name Role Phone Elsewhere, Pcp Primary Care Provider Unavailabl e Source Comments Patient records contain information from all sites at [facility]. For routine questions regarding patient records, call [phone] during business hours, M-F 8:00 AM - 5:00 PM Central Time. Record requests for emergency care only can be directed to [phone] at any time.[facility] Allergies Active Allergy Reactions Criticality Noted Date Comments Lisinopril Cough 01/31/2012 Nifedipine Headache 01/29/2012 Other reaction(s): Lightheadedness Nifedipine cream prescribed by Rowdy Cortez PA-C, GI from [facility]. Other reaction(s): Fatigue Nifedipine cream prescribed by Rowdy Cortez PA-C, GI from [facility]. Nifedipine cream prescribed by Rowdy Cortez PA-C GI from [facility]. Nsaids (Non-Steroidal Anti-Inflammatory Drug) GI intolerance 10/23/2015 Penicillins Hives (Reselect Reaction) 01/29/2012 Medications cholecalciferol (VITAMIN D3) 2,000 Unit capsule Take 2,000 Units by mouth. Taken when remembered Active losartan (COZAAR) 50 mg tablet Take 1 tablet (50 mg total) by mouth at bedtime. 90 tablet 0 Active fexofenadine (CECILIA) 180 mg tablet Take 180 mg by mouth as needed. Active Active Problems Problem Noted Date Diagnosed Date Hypertension Essential Primary 01/09/2012 Overview (01/24/2017): Hypertension Immunizations Immunization Administration Dates Next Due Td (Adult), adsorbed 07/30/2007 Family History Medical History Relation Name Comments Coronary artery disease Brother 1 Everardo Veronica Heart attack Brother 1 Everardo Lindsey Prostate cancer Brother 1 Everardo Lindsey Alcohol user Brother 2 Gautam Veronica Diabetes Brother 2 Gautam Lindsey Prostate cancer Brother 3 Manuel Veronica Coronary artery disease Brother 4 Jackson No Known Problems Brother 5 guevara Multiple sclerosis Daughter Cataracts Father Savage Veronica Depression Father Savage Lindsey Diabetes Father Savage Lindsey Hypertension Father Savage Veronica Osteoarthritis Father Savage Veronica Prostate cancer Father Savage Veronica Rheum arthritis Father Savage Veronica Skin cancer Father Savage Lindsey Coronary artery disease Grandfather Diabetes Grandfather Heart attack Grandfather Ovarian cancer Grandmother Deep vein thrombosis Mother Letitia Veronica Depression Mother Letitia Lindsey Glaucoma Mother Letitia Lindsey Irritable bowel syndrome Mother Letitia Veronica Lung cancer Mother Letitia Veronica Ulcerative colitis Mother Letitia Veronica No Known Problems Sister 1 nini Crohn's disease Sister 2 kt No Known Problems Sister 4 gaston Relation Name Status Comments Brother 1 Everardo Veronica Alive Brother 2 Gautam Lindsey (Age 45) complicati ons of alcoholism Brother 3 Manuel Veronica (Age 65) prostate c ancer Brother 4 Jackson Alive Brother 5 guevara Alive Daughter Father Savage Martin Alive prostate cancer Grandfather Grandmother Mother Letitia Martin (Age 62) lung cance r Sister 1 nini Alive Sister 2 kt Alive Sister 3 natalie Alive mental illness Sister 4 gaston Alive Social History Tobacco Use Types Packs/Day Years Used Date Smoking Tobacco: Former Cigarettes Q uit: 09/04/1978 Smokeless Tobacco: Never Alcohol Use Standard Drinks/Week Comments No 0 (1 standard drink = 0.6 oz pur e alcohol) Overall Financial Resource Strain (CARDIA) Answe r Date Recorded How hard is it for you to pa y for the very basics like food, housing, medical care, and heating? Not hard at all 07/01/2023 PHQ-2 Answer Date Recorded PHQ-2 Score 0 02/11/2019 Exercise Vital Sign Answer Date Recorde d On average, how many days pe r week do you engage in moderate to strenuous exercise (like a brisk walk)? 0 days 07/01/2023 On average, how many minutes do you engage in exercise at this level? 0 min 07/01/2023 Hunger Vital Sign Answer Date Recorded Within the past 12 months, y ou worried that your food would run out before you got the money to buy more. Never true 07/01/20 Within the past 12 months, t he food you bought just didn't last and you didn't have money to get more. Never true 07/01/2023 PRAPARE - Transportation Answer Date Re corded In the past 12 months, has l ack of transportation kept you from medical appointments or from getting medications? No 06/05 In the past 12 months, has l ack of transportation kept you from meetings, work, or from getting things needed for daily living? No 07/01/2023 Nutrition Answer Date Recorded Nutrition: EVOO Fat Source Unknown 07/01 On average, how many serving s of fruits and vegetables do you eat per day (serving size is equal to 1 cup or approximately the size of a tennis ball)? 0-2 07/01/2023 Dental Answer Date Recorded Dental: Regular Dentist No 07/01/20 Employment Answer Date Recorded Employment status Retired 07/01/2023 Housing Stability Answer Date Recorded What is your living situation today? I have a [facility] place to live 07/01/2023 Comments No Sex and Gender Information Value Date Recorded Sex Assigned at Female 07/01/2023 9:55 AM CDT Legal Sex Female 4:07 PM SMALL PARTS ASSEMBLER Gender Identity Female 07/01/2023 9:55 AM CDT Sexual Orientation Straight 07/01/2023 9: 55 AM CDT Last Filed Vital Signs Vital Sign Reading Time Taken Comments Blood Pressure 116/72 06/26/2018 8:15 AM CDT Pulse 88 06/26/2018 8:15 AM CDT Temperature 37 C (98.6 F) 06/26/2018 8:15 AM CDT Respiratory Rate 16 06/26/2018 8:15 AM CDT Oxygen Saturation 96% 06/26/2018 8:15 AM CDT room air Inhaled Oxygen Concentration - - Weight 137 kg (303 lb 0.4 oz) 06/26/2018 8:15 AM CDT Height 163 cm (5' 4.17) 06/26/2018 8:15 AM CDT Body Mass Index 51.73 06/26/2018 8:15 AM CDT Plan of Treatment Health Maintenance Due Date Last Done Comments Bone Density Scan (Osteoporosis Screen) 1956 CT Colonography 1955 Cologuard 1955 FIT 1955 Office Visit for Blood Pressure Check / Re-check 1955 Pneumococcal vaccine (50+ years) (1 of 1 - PCV) 2006 Zoster Vaccines (1 of 2) 2006 DTaP,Tdap,and Td Vaccines (1 - Tdap) 07/31/2007 07/30/2007, 09/04/2006 Mammogram 09/25/2016 09/25/2015, 03/2013, 03/03/2012 (Performed elsewhere), Additional history exists Colonoscopy 06/03/2020 06/03/2010, 06/03/2010 Colorectal Cancer Screening 06/03/2020 Creatinine Level (Kidney Function Test) 02/03/2021 02/04/2020, 06/26/2018, 11/28/2016, Additional history exists Potassium Level 02/03/2021 02/04/2020, 06/05, 11/28/2016, Additional history exists Sodium Level 02/03/2021 02/04/2020, 06/05, 11/28/2016, Additional history exists Fasting Glucose for Diabetes Screening 02/03/2023 02/04/2020, 02/04/2020, 06/26/2018, Additional history exists COVID-19 Vaccine ( season) 2024 06/26/2021 Influenza Vaccine (#1) 2024 05/04/2020, 2006 Depression Screening (Annual PHQ-2) 09/04/2024 Fall Risk Screen (Annual) 09/04/2024 Hepatitis C Screening Completed 11/28/2016 Cervical/Vaginal Cancer Screening Discontinued 05/04/2020, 09/23/2014 IPV Vaccines Aged Out No longer eligi ble based on patient's age to complete this topic Procedures Procedure Name Priority Date/Time Associated Diagnosis Comments COMPREHENSIVE METABOLIC PANEL, S/P Routine 06/26/2018 9:52 AM CDT Dyskinesia Biliary HCV AB SCRN W/REFLEX TO HCV PCR, S Routine 11/28/2016 9:17 AM CDT BI BREAST SCREENING BILATERAL Routine 09/25/2015 9:47 AM SMALL PARTS ASSEMBLER THINPREP SCREEN HPV REFLEX Routine 09/23/2014 10:15 AM SMALL PARTS ASSEMBLER from Last 3 Months or Most Recently Relevant to Health Maintenance Results * (ABNORMAL) Comprehensive Metabolic Panel (06/26/2018 9:52 AM CDT) Pathologist [facility] [place] Potassium, S 4.7 3.6 - 5.2 mmol/L 06/26/2018 1:24 PM CDT [facility] Sodium, S 142 135 - 145 mmol/L 06/26/2018 1:24 PM CDT [facility] Chloride, S 102 98 - 107 mmol/L 06/26/2018 1:24 PM CDT [facility] Bicarbonate, S 29 22 - 29 mmol/L 06/26/2018 1:24 PM CDT [facility] Anion Gap 11 7 - 15 06/26/2018 1:24 PM CDT [facility] BUN (Blood Urea Nitrogen), S 13 6 - 21 mg/dL 06/26/2018 1:24 PM CDT [facility] Creatinine 0.82 0.59 - 1.04 mg/dL 06/26/2018 1:24 PM CDT [facility] eGFR-Non Black/ 77 >=60 mL/min/BS A 06/26/2018 1:24 PM CDT [facility] Comment: ----ADDITIONAL INFORMATION---- Estimated GFR calculated using the 2009 CKD_EPI creatinine equation. eGFR-Black/ 89 >=60 mL/min/BS A 06/26/2018 1:24 PM CDT [facility] Comment: ----ADDITIONAL INFORMATION---- Estimated GFR calculated using the 2009 CKD_EPI creatinine equation. Calcium, Total, S 10.5(H) 8.8 - 10.2 mg/dL 06/26/2018 1:24 PM CDT [facility] Glucose, S 103 70 - 140 mg/dL 06/26/2018 1:24 PM CDT [facility] Protein, Total, S 7.3 6.3 - 7.9 g/dL 06/26/2018 1:24 PM CDT [facility] Albumin, S 4.5 3.5 - 5.0 g/dL 06/26/2018 1:24 PM CDT [facility] Aspartate Aminotransferase (AST), S 17 8 - 43 U/L 06/26/2018 1:24 PM CDT [facility] Alkaline Phosphatase, S 133(H) 35 - 104 U/L 06/26/2018 1:24 PM CDT [facility] Alanine Aminotransferase (ALT), S 15 7 - 45 U/L 06/26/2018 1:24 PM CDT [facility] Bilirubin, Total, S 0.3 <=1.2 mg/dL 06/26/2018 1:24 PM CDT [facility] Blood (Blood, Venous) 06/26/2018 9:52 AM CDT 06/26/2018 12:49 PM CDT us Nadia Gerard M.D. LAB BLOOD ADD-ON Final Result [facility] [address] [place] [address], [facility] * HCV Ab w/Reflex to HCV PCR, S (medicare) (11/28/2016 9:17 AM CDT) HXHCV Ab [facility] Negative Negative POWERCHART Comment: Lgpjpf-gc-fqcxov ratio is <1.00. Test Performed by: [address] [address] Blood 11/28/2016 9:17 AM CDT us Phunt Phyo M.D. LAB MICROBIOLOGY - BLOOD ORDERAB LES Final Result RERE * BI Breast Screening Bilateral (09/25/2015 9:47 AM SMALL PARTS ASSEMBLER) Anatomical Region Laterality Modality Breast Bilateral Mammography 09/25/2015 9:47 AM SMALL PARTS ASSEMBLER Addenda Addendum by ProviderDago M.D. on 09/25/2015 9:47 AM SMALL PARTS ASSEMBLER RAD^^^OW MA Mammo Screening w CADD 09/25/2015 09:47:24 Impressions 09/25/2015 4:39 PM SMALL PARTS ASSEMBLER No mammographic findings for malignancy in either breast. Recommendations: I recommend a follow-up mammogram in 1 year, self breast exams at least once per month and clinical breast exam at least once per year. Of note, benign findings should not deter biopsy in the setting of a palpable abnormality. The false negative rate of mammography is approximately 10%. CODE: 1-NEGATIVE Appropriate letter sent. Full field digital mammography is used and Computer Aided Detection is performed on the digital mammogram images. Narrative 09/25/2015 4:39 PM SMALL PARTS ASSEMBLER EXAM: MA Mammo Screening w/ CADD INDICATION: Screening AGE: 60 years-old PREVIOUS STUDIES: Dating back to 2012 VIEWS: MLO and CC views of bilateral breasts. Exaggerated CC view of the left breast. FINDINGS: Scattered areas of fibroglandular density. No change. Procedure Note Dakota Da Silva M.D. / ProviderDago M.D. - 01/06/2017 EXAM: MA Mammo Screening w/ CADD INDICATION: Screening AGE: 60 years-old PREVIOUS STUDIES: Dating back to 2012 VIEWS: MLO and CC views of bilateral breasts. Exaggerated CC view of the left breast. FINDINGS: Scattered areas of fibroglandular density. No change. IMPRESSION: No mammographic findings for malignancy in either breast. Recommendations: I recommend a follow-up mammogram in 1 year, self breast exams at least once per month and clinical breast exam at least once per year. Of note, benign findings should not deter biopsy in the setting of a palpable abnormality. The false negative rate of mammography is approximately 10%. CODE: 1-NEGATIVE Appropriate letter sent. Full field digital mammography is used and Computer Aided Detection is performed on the digital mammogram images. us Jazmín Gonzalez(R), Lisa(R)(M) [facility] OCEDURES Edited Result - Final * Pathology ThinPrep Screen HPV Reflex (09/23/2014 10:15 AM SMALL PARTS ASSEMBLER) [facility] [id number] POWERCHART HXFinal [facility] See Comment POWERCHART Comment: A. ThinPrep Pap Test Screen (Cervical/Endocervical HPV >= 30 years old): Satisfactory for evaluation. Negative for intraepithelial lesion or malignancy. High Risk HPV testing results are NEGATIVE. See specific genotype results below. HPV with Genotyping, PCR, ThinPrep: HPV High Risk Type 16, PCR: NEGATIVE HPV High Risk Type 18, PCR: NEGATIVE HPV other High Risk types, PCR: NEGATIVE Other High Risk HPV types include: 31, 33, 35, 39, 45, 51, 52, 56, 58, 59, 66, and 68. [facility] See Comment POWERCHART Comment: Report electronically signed by Olvin Paul, SCT(ASCP) 09/30/2014 16:29 Interpreted by: HIREN Lake(ASCP) Cervix/Endocervix 09/23/2014 10:15 AM SMALL PARTS ASSEMBLER us Destiney Taylor M.D. LAB PAP PATHDX ORDERABL ES Edited Result - Final POWERCHART from Last 3 Months or Most Recently Relevant to Health Maintenance [facility] Care Teams Environmental Remediation Engineer Relationship Specialty Start Date End Date Elsewhere, Pcp PCP - General Internal Medicine 08/12/21
--- OUTSIDE RECORDS SUMMARY | 2025-02-05 06:36 | XMS_ITS | Encounter Summary ---
Author Organization [place] Address [address] [facility] [place] [address] Care Team Providers Care Route Deliverer Name Role Phone Destiney Taylor MD Unavailable [phone] Kai Castaneda MD Primary Care Provider [phone] Russell Chiang MD Unavailable [phone] Frw, None Unavailable Unavailable Frw, None Primary Care Provider Unavailpatricio e Allyson Bliss MD Primary Care Provider [phone] Allyson Bliss MD Unavailable [phone] Hernesto Sue Unavailable Unavailable Odilia Valle Unavailable Unavailable Chandrika Wakefield Unavailable Unavailable Reason for Referral * Specialty Diagnoses / Procedures Referred By John rae Referred To Contact Diagnoses Diverticulitis of colon Kai Castaneda MD [facility] [address] [place] [address] [address] [place] [address] Phone: tel: fax: Referral ID Status Reason Start Date Expiration Date Visits Re quested Visits Authorized Comments 55 year-old female with diverticulitis/diverticular colitis without resolution of symptoms without antibiotics. Has had recurrent diverticulitis. Encounter Details Date Type Department Care Team (Latest Contact Info) Description 06/17/2010 MyC Medical Advice in [facility] [address] [place] [phone] Kai Castaneda MD [facility] [address] [place] [address] Diverticulitis of colon (Primary Dx) Social History Tobacco Use Types Packs/Day Years Used Date Smoking Tobacco: Former Comments:smoked 30 years ago Alcohol Use Standard Drinks/Week Comments No 0 (1 standard drink = 0.6 oz pur e alcohol) Comments No Sex and Gender Information Value Date Recorded Sex Assigned at Female 07/13/2020 9:19 AM SENIOR OPERATIONS ANALYST Legal Sex Female 3:56 AM SENIOR OPERATIONS ANALYST Gender Identity Female 07/13/2020 9:19 AM SENIOR OPERATIONS ANALYST Sexual Orientation Straight 07/13/2020 9: 19 AM SENIOR OPERATIONS ANALYST 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 documented as of this encounter Miscellaneous Notes * Telephone Encounter - Rolf Mazariegos MD - 06/17/2010 5:12 PM CDT Davy Quinn, Sounds like a plan. See below. Jacinto * Telephone Encounter - Kai Castaneda MD - 06/17/2010 8:49 AM CDT I will discuss with Dr Wm Clifford Mazariegos, Gastroenterology. documented in this encounter Plan of Treatment Not on file documented as of this encounter Visit Diagnoses Diagnosis Diverticulitis of colon- Primary Diverticulitis of colon (without mention of hemorrhage) documented in this encounter Care Teams Route Deliverer Relationship Specialty Start Date End Date Destiney Taylor MD PCP - Obstetrics/Gynecology 09/28/06 12/06/11 Kai Castaneda MD [facility] [place] [address] [place] [address] PCP - General 09/17/09 08/15/13 Russell Chiang MD [address] [place] [address] PCP - Surgery Surgery 08/13/10 08/04/14 Frw, None PCP - Obstetrics/Gynecology Family Practice 12/07/11 Frw, None PCP - General Family Practice 08/16/13 05/04/17 [place] [address] [place] [address] [place] [address] PCP - General Internal Medicine 01/28/20 10/05/23 Allyson Bliss MD [address] [place] [address] [place] [address] Assigned PCP 12/27/19 10/26/24 Hernesto Sue Personal Advocate & Liaison (PAL) 10/13/20 11/23/20 Odilia Valle Personal Advocate & Liaison (PAL) 11/24/20 12/15/22 Chandrika Wakefield Personal Advocate & Liaison (PAL) 12/16/22 10/05/23 documented as of this encounter
--- OUTSIDE RECORDS SUMMARY | 2025-02-05 06:36 | XMS_ITS | Encounter Summary ---
Author Organization [place] Address [address] [facility] [place] [address] Care Team Providers Care Coater Hand Name Role Phone Destiney Taylor MD Unavailable [phone] Kai Castaneda MD Primary Care Provider [phone] Russell Chiang MD Unavailable [phone] Frw, None Unavailable Unavailable Frw, None Primary Care Provider Unavailpatricio e Allyson Bliss MD Primary Care Provider [phone] Allyson Bliss MD Unavailable [phone] Hernesto Sue Unavailable Unavailable Odilia Valle Unavailable Unavailable Chandrika Wakefield Unavailable Unavailable Encounter Details Date Type Department Care Team (Late st Contact Info) Description 09/25/2009 MyC Medical Advice [facility] in [place] [employer] SALES REPRESENTATIVE [address] [place] [address] Destiney Taylor MD [facility] [address] [place], [place] [id number] Social History Tobacco Use Types Packs/Day Years Used Date Smoking Tobacco: Former Comments:smoked 30 years ago Alcohol Use Standard Drinks/Week Comments No 0 (1 standard drink = 0.6 oz pur e alcohol) Comments No Sex and Gender Information Value Date Recorded Sex Assigned at Female 07/13/2020 9:19 AM ROLL CLAMP OPERATOR Legal Sex Female 3:56 AM ROLL CLAMP OPERATOR Gender Identity Female 07/13/2020 9:19 AM ROLL CLAMP OPERATOR Sexual Orientation Straight 07/13/2020 9: 19 AM ROLL CLAMP OPERATOR 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 documented as of this encounter Plan of Treatment Not on file documented as of this encounter Visit Diagnoses Not on filedocumented in this encounter Care Teams Coater Hand Relationship Specialty Start Date End Date Destiney Taylor MD PCP - Obstetrics/Gynecology 09/28/06 12/06/11 Kai Castaneda MD [facility] [place] [address] [facility] [address] [place] [address] PCP - General 09/17/09 08/15/13 Russell Chiang MD [address] [place] [address] PCP - Surgery Surgery 08/13/10 08/04/14 Frw, None PCP - Obstetrics/Gynecology Family Practice 12/07/11 Frw, None PCP - General Family Practice 08/16/13 05/04/17 Allyson Bliss MD [address] [place] [address] [place] [address] PCP - General Internal Medicine 01/28/20 10/05/23 Allyson Bliss MD [address] [place] [address] [place] [address] Assigned PCP 12/27/19 10/26/24 Hernesto Sue Personal Advocate & Liaison (PAL) 10/13/20 11/23/20 Odilia Valle Personal Advocate & Liaison (PAL) 11/24/20 12/15/22 Chandrika Wakefield Personal Advocate & Liaison (PAL) 12/16/22 10/05/23 documented as of this encounter
--- OUTSIDE RECORDS SUMMARY | 2025-02-05 06:36 | XMS_ITS | Encounter Summary ---
Author Organization [place] Address [address] [facility] [place] [address] Care Team Providers Care Test Facility Engineer Name Role Phone Frw, None Unavailable Unavailable Allyson Bliss MD Primary Care Provider [phone] Allyson Bliss MD Unavailable [phone] Odilia Valle Unavailable Unavailable Chandrika Wakefield Unavailable Unavailable Reason for Visit * Reason Comments Medication Refill Encounter Details Date Type Department Care Team (Late st Contact Info) Description 08/05/2021 Refill [facility] [place] [address] [place] [address] Drive [address] [place] [phone] Allyson Bliss MD [address] [place] [address] [place] [address] Medication Refill Social History [...] Sex Assigned at Female 07/13/2020 9:19 AM ORACLE ANALYST Legal Sex Female 3:56 AM ORACLE ANALYST Gender Identity Female 07/13/2020 9:19 AM ORACLE ANALYST Sexual Orientation Straight 07/13/2020 9: 19 AM ORACLE ANALYST 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, 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 Not on file documented as of this encounter Miscellaneous Notes * Telephone Encounter - Paz Moses RN - 08/06/2021 9:45 AM CST Routing refill request to provider for review/approval because: PHQ-9 score: PHQ 06/21/2021 PHQ-9 Total Score 5 Q9: Thoughts of better off /self-harm past 2 weeks Not at all Paz Moses RN LE ANALYST documented in this encounter Plan of Treatment Not on file documented as of this encounter Visit Diagnoses Diagnosis Moderate episode of recurrent major depressive disorder (H) documented in this encounter Additional Health Concerns Assessment Noted Time PHQ-9 Depression Total Score: 5 06/21/20 21 2:19 PM CDT documented as of this encounter Care Teams Test Facility Engineer Relationship Specialty Start Date End Date Frw, None PCP - Obstetrics/Gynecology Family Practice 12/07/11 Allyson Bliss MD [address] [facility] [place] [address] PCP - General Internal Medicine 01/28/20 10/05/23 Allyson Bliss MD [facility] [facility] [place] [address] Assigned PCP 12/27/19 10/26/24 Odilia Valle Personal Advocate & Liaison (PAL) 11/24/20 12/15/22 Chandrika Wakefield Personal Advocate & Liaison (PAL) 12/16/22 10/05/23 documented as of this encounter
--- OUTSIDE RECORDS SUMMARY | 2025-02-05 06:37 | XMS_ITS | Encounter Summary ---
Author Organization [place] Address [address] [facility] [place] [address] Care Team Providers Care Field Services Director Name Role Phone Destiney Taylor MD Unavailable [phone] Kai Castaneda MD Primary Care Provider [phone] Russell Chiang MD Unavailable [phone] Frw, None Unavailable Unavailable Frw, None Primary Care Provider Unavailpatricio e Allyson Bliss MD Primary Care Provider [phone] Allyson Bliss MD Unavailable [phone] Hernesto Sue Unavailable Unavailable Odilia Valle Unavailable Unavailable Chandrika Wakefield Unavailable Unavailable Encounter Details Date Type Department Care Team (Late st Contact Info) Description 03/03/2011 MyC Medical Advice [facility] in [place] [facility] [address] [place] [phone] Kai Castaneda MD [facility] [address] [facility] [address] [place], [place] [id number] Social History Tobacco Use Types Packs/Day Years Used Date Smoking Tobacco: Former Smokeless Tobacco: Never Comments:smoked 30 years ago Alcohol Use Standard Drinks/Week Comments No 0 (1 standard drink = 0.6 oz pur e alcohol) Comments No Sex and Gender Information Value Date Recorded Sex Assigned at Female 07/13/2020 9:19 AM CARDIAC NURSE Legal Sex Female 3:56 AM CARDIAC NURSE Gender Identity Female 07/13/2020 9:19 AM CARDIAC NURSE Sexual Orientation Straight 07/13/2020 9: 19 AM CARDIAC NURSE 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 documented as of this encounter Plan of Treatment Not on file documented as of this encounter Visit Diagnoses Not on filedocumented in this encounter Care Teams Field Services Director Relationship Specialty Start Date End Date Destiney Taylor MD PCP - Obstetrics/Gynecology 09/28/06 12/06/11 Kai Castaneda MD [facility] [address] [facility] [address] [place] [address] PCP - General 09/17/09 08/15/13 Russell Chiang MD [address] [place] [id number] PCP - Surgery Surgery 08/13/10 08/04/14 Frw, None PCP - Obstetrics/Gynecology Family Practice 12/07/11 Frw, None PCP - General Family Practice 08/16/13 05/04/17 Allyson Bliss MD [address] [place] [address] [place] [id number] PCP - General Internal Medicine 01/28/20 10/05/23 Allyson Bliss MD [address] [place] [address] [place]AN [id number] Assigned PCP 12/27/19 10/26/24 Hernesto Sue Personal Advocate & Liaison (PAL) 10/13/20 11/23/20 Odilia Valle Personal Advocate & Liaison (PAL) 11/24/20 12/15/22 Chandrika Wakefield Personal Advocate & Liaison (PAL) 12/16/22 10/05/23 documented as of this encounter
--- OUTSIDE RECORDS SUMMARY | 2025-02-05 06:37 | XMS_ITS | Encounter Summary ---
Author Organization [place] Address [address] [facility] [place] [address] Care Team Providers Care Lap Cutter Name Role Phone Destiney Taylor MD Unavailable [phone] Kai Castaneda MD Primary Care Provider [phone] Russell Chiang MD Unavailable [phone] Frw, None Unavailable Unavailable Frw, None Primary Care Provider Unavailpatricio e Allyson Bliss MD Primary Care Provider [phone] Allyson Bliss MD Unavailable [phone] Hernesto Sue Unavailable Unavailable Odilia Valle Unavailable Unavailable Chandrika Wakefield Unavailable Unavailable Encounter Details Date Type Department Care Team (Late st Contact Info) Description 03/25/2011 MyC Medical Advice [facility] in [place] [facility] [address] [place] [phone] Kai Castaneda MD [facility] [address] [facility] [address] [place], [place] [id number] Anxiety (Primary Dx) Social History Tobacco Use Types Packs/Day Years Used Date Smoking Tobacco: Former Smokeless Tobacco: Never Comments:smoked 30 years ago Alcohol Use Standard Drinks/Week Comments No 0 (1 standard drink = 0.6 oz pur e alcohol) Comments No Sex and Gender Information Value Date Recorded Sex Assigned at Female 07/13/2020 9:19 AM GENERAL PEDIATRICIAN Legal Sex Female 3:56 AM GENERAL PEDIATRICIAN Gender Identity Female 07/13/2020 9:19 AM GENERAL PEDIATRICIAN Sexual Orientation Straight 07/13/2020 9: 19 AM GENERAL PEDIATRICIAN 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 documented as of this encounter Plan of Treatment Not on file documented as of this encounter Visit Diagnoses Diagnosis Anxiety- Primary Anxiety state, unspecified documented in this encounter Care Teams Lap Cutter Relationship Specialty Start Date End Date Destiney Taylor MD PCP - Obstetrics/Gynecology 09/28/06 12/06/11 Kai Castaneda MD [facility] [place] [address] [facility] [address] [place] [address] PCP - General 09/17/09 08/15/13 Russell Chiang MD [address] [place] [address] PCP - Surgery Surgery 08/13/10 08/04/14 Frw, None PCP - Obstetrics/Gynecology Family Practice 12/07/11 Frw, None PCP - General Family Practice 08/16/13 05/04/17 Allyson Bliss MD [address] [place] [address] [place] [id number] PCP - General Internal Medicine 01/28/20 10/05/23 Allyson Bliss MD [address] [place] [address] [place] [id number] Assigned PCP 12/27/19 10/26/24 Hernesto Sue Personal Advocate & Liaison (PAL) 10/13/20 11/23/20 Odilia Valle Personal Advocate & Liaison (PAL) 11/24/20 12/15/22 Chandrika Wakefield Personal Advocate & Liaison (PAL) 12/16/22 10/05/23 documented as of this encounter
--- OUTSIDE RECORDS SUMMARY | 2025-02-05 06:37 | XMS_ITS | Encounter Summary ---
Author Organization [place] Address [address] [facility] [place] [address] Care Team Providers Care Mini Lab Operator Name Role Phone Destiney Taylor MD Unavailable [phone] Kai Castaneda MD Primary Care Provider [phone] Russell Chiang MD Unavailable [phone] Frw, None Unavailable Unavailable Frw, None Primary Care Provider Unavailpatricio e Allyson Bliss MD Primary Care Provider [phone] Allyson Bliss MD Unavailable [phone] Hernesto Sue Unavailable Unavailable Odilia Valle Unavailable Unavailable Chandrika Wakefield Unavailable Unavailable Encounter Details Date Type Department Care Team (Late st Contact Info) Description 03/08/2011 MyC Medical Advice [facility] in [place] Family [facility] [address] [place] [phone] Kai Castaneda MD [facility] [address] [address] [place], [place] [phone] Social History Tobacco Use Types Packs/Day Years Used Date Smoking Tobacco: Former Smokeless Tobacco: Never Comments:smoked 30 years ago Alcohol Use Standard Drinks/Week Comments No 0 (1 standard drink = 0.6 oz pur e alcohol) Comments No Sex and Gender Information Value Date Recorded Sex Assigned at Female 07/13/2020 9:19 AM IT OPERATIONS ANALYST Legal Sex Female 3:56 AM IT OPERATIONS ANALYST Gender Identity Female 07/13/2020 9:19 AM IT OPERATIONS ANALYST Sexual Orientation Straight 07/13/2020 9: 19 AM IT OPERATIONS ANALYST 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 documented as of this encounter Plan of Treatment Not on file documented as of this encounter Visit Diagnoses Not on filedocumented in this encounter Care Teams Mini Lab Operator Relationship Specialty Start Date End Date Destiney Taylor MD PCP - Obstetrics/Gynecology 09/28/06 12/06/11 Kai Castaneda MD [facility] [address] [facility] [address] [place] [address] PCP - General 09/17/09 08/15/13 Russell Chiang MD [address] [place] [id number] PCP - Surgery Surgery 08/13/10 08/04/14 Frw, None PCP - Obstetrics/Gynecology Family Practice 12/07/11 Frw, None PCP - General Family Practice 08/16/13 05/04/17 Allyson Bliss MD [address] [place] [address] [place] [id number] PCP - General Internal Medicine 01/28/20 10/05/23 Allyson Bliss MD [address] [place] [address] [place] [id number] Assigned PCP 12/27/19 10/26/24 Hernesto Sue Personal Advocate & Liaison (PAL) 10/13/20 11/23/20 Odilia Valle Personal Advocate & Liaison (PAL) 11/24/20 12/15/22 Chandrika Wakefield Personal Advocate & Liaison (PAL) 12/16/22 10/05/23 documented as of this encounter
[2025-02-05 06:39] VITALS: BP 136/72; PULSE 109; RESP 16; TEMP 36.6; O2SAT 95; BMI 53.2
--- NOTE | 2025-02-05 06:59 | CRLHL7_ITS ---
For Patients: As a result of the Century Cures Act, medical imaging exams and procedure reports are released immediately into your electronic medical record. You may view this report before your referring provider. If you have questions, please contact your health care provider. INDICATION: Left lower quadrant pain. COMPARISON: 07/02/2023 TECHNIQUE: CT of the abdomen and pelvis with 150 cc of Isovue 370 intravenous contrast. Please note that all CT scans at this facility use dose modulation, iterative reconstruction, and/or weight-based dosing when appropriate to reduce radiation dose to as low as reasonably achievable. FINDINGS: ABDOMEN Liver: Normal contour. Focal fatty infiltration is noted in the left hepatic lobe adjacent to the intersegmental fissure. No significant focal lesion. No intrahepatic biliary ductal dilatation. Patent portal veins. Patent hepatic veins. Gallbladder: Cholecystectomy. Normal common duct caliber. Pancreas: Normal contour and attenuation. No peripancreatic inflammatory changes. No significant focal lesion. Normal main duct caliber. Spleen: Not enlarged. No significant focal lesion. Patent splenic artery and vein. Adrenal Glands: Symmetrical adrenal glands. No significant focal lesion. Kidneys: Normal bilateral renal attenuation. No significant focal lesion. No nephrolith. No dilatation of the intrarenal collecting systems. No ureteral stone. Nondilated ureters. Patent renal arteries and veins. Gastrointestinal tract: Sigmoid diverticulosis with focal uniform wall thickening of the mid sigmoid colon associated with pericolic inflammatory fat stranding with infiltration of the sigmoid mesentery consistent with acute uncomplicated diverticulitis. Otherwise normal caliber, attenuation and wall thickness of the gastrointestinal tract. Normal appendix. Vascular: Chronic mild aortoiliac atherosclerotic mural calcification. Abdominal aorta and its major proximal branches including the celiac, superior mesenteric, inferior mesenteric, renal, and bilateral common iliac arteries are patent. Patent superior mesenteric vein. Peritoneal Cavity/Retroperitoneum: No ascites. No adenopathy. PELVIS No bladder lesion is identified. Findings consistent with a prior supracervical hysterectomy with a remnant cervix. Please correlate with the patient`s clinical history. Small volume rectovesical free pelvic fluid. No adenopathy. SKELETON AND BODY WALL Re-demonstration of a large fat containing umbilical hernia which measures approximately 11.4 cm in greatest axial dimension (series 2; image 123). LOWER THORAX Partially included lower thoracic wall, lungs, pleural spaces and mediastinum are otherwise without significant incidental findings. IMPRESSION: 1. Acute uncomplicated diverticulitis of the sigmoid colon. Small volume rectovesical free pelvic fluid. No abscess or perforation. 2. Incidental findings detailed above. Please note that all CT scans at this facility use dose modulation, iterative reconstruction, and/or weight-based dosing when appropriate to reduce radiation dose to as low as reasonably achievable. Dictated by Jimmy Kate MD @ 02/05/2025 8:31:00 AM (Electronically Signed)
[2025-02-05 07:19] LABS: Appearance Urine Slightly Cloudy (Clear); Bilirubin Urine 1+ (Negative); Blood Urine Negative (Negative); Color Urine Yellow (Yellow); Glucose Urine Negative (Negative); Ketones Urine Negative (Negative); Leukocyte Esterase Urine Trace (Negative); Nitrite Urine Negative (Negative); Protein Urine 1+ (Negative); Specific Gravity Urine 1.025 (1.000-1.030); Urobilinogen Urine 0.2 (0.2-1.0); pH Urine 5.5 (5.0-8.5)
[2025-02-05 07:40] LABS: Basophils Absolute Auto 0.04 K/uL (0.00-0.30); Basophils Percent Auto 0.5 % (0.0-3.0); Eosinophils Absolute Auto 0.11 K/uL (0.00-0.50); Eosinophils Percent Auto 1.4 % (0.0-7.0); Hematocrit 41.2 % (33.0-51.0); Hemoglobin* 12.8 gm/dL (12.0-16.0); Immature Granulocytes Abs Auto 0.12 K/uL (0.00-0.30); Immature Granulocytes Pct Auto 1.6 %; Lymphocytes Absolute Auto 2.09 K/uL (0.90-2.90); Lymphocytes Percent Auto 27.3 % (20-44); Mean Corpuscular HGB Conc 31 gm/dL (32-36); Mean Corpuscular Hemoglobin 26 pg (26-34); Mean Corpuscular Volume 83 fL (80-100); Monocytes Percent Auto 8.1 % (0.0-11.0); Neutrophils Absolute Auto 4.68 K/uL (1.7-7.0); Neutrophils Percent Auto 61.1 % (42.0-72.0); Platelet Count* 410 K/uL (140-440); RDW Coefficient of Variation % 13.6 % (11.5-15.5); Red Blood Count 4.95 m/uL (4.00-5.20); White Blood Count* 7.66 K/uL (4.50-11.00)
--- NOTE | 2025-02-05 07:40 | ED.GENADULT ---
HPI - General Adult General Date Seen: 02/05/25 <Chandrika Gates MD - Last Filed: 02/18/25 17:11> Chief complaint: Abdominal Pain <Chandrika Gates MD - Last Filed: 02/18/25 17:11> Stated complaint: Reticulosis <Chandrika Gates MD - Last Filed: 02/18/25 17:11> Time Seen by Provider: 02/05/25 06:48 <Chandrika Gates MD - Last Filed: 02/18/25 17:11> History of Present Illness HPI narrative: Patient is a 69-year-old woman who has a history of diverticulitis who presents with 3 weeks of left lower quadrant pain associated with intermittent diarrhea and or constipation. She denies bloody stools. She has had some nausea and loss of appetite primarily because she feels like the pain gets worse after she eats. She has noted over the past day or 2 that her temperature at home has been around 100. Overall it feels similar to previous episodes of diverticulitis and she felt that she should start antibiotics. She has a history of hysterectomy, cholecystectomy, tubal , incisional hernia. She denies tobacco alcohol use. Here today with her granddaughter. <Chandrika Gates MD - Last Filed: 02/18/25 17:11> Related Data Home medications: Home Medications ?Medication ?Instructions ?Recorded ?Confirmed losartan 50 mg tablet 75 mg PO DAILY 02/05/25 02/05/25 Previous Rx's ?Medication ?Instructions ?Recorded ciprofloxacin HCl 500 mg tablet 500 mg PO BID #20 tabs 02/05/25 (Cipro) metronidazole 500 mg tablet 500 mg PO BID 10 days #20 tabs 02/05/25 <Chandrika Gates MD - Last Filed: 02/18/25 17:11> Allergies/adverse reactions: Allergies Allergy/AdvReac Type Severity Reaction Status Date / Time Penicillins Allergy Verified 07/02/23 15:12 <Chandrika Gates MD - Last Filed: 02/18/25 17:11> Review of Systems Status of ROS: Reports: 10 or more systems reviewed and unremarkable except as noted in History and below <Chandrika Gates MD - Last Filed: 02/18/25 17:11> PFSH PFSH Social History: Social History Smoking Status: Former smoker How often do you have a drink containing alcohol: never AUDIT-C Alcohol total score: 0 Non-prescribed substance use: denies use <Chandrika Gates MD - Last Filed: 02/18/25 17:11> Exam Narrative: Exam Narrative: Vital signs reviewed In general, alert, nontoxic mid age woman. She is significantly overweight. Looks comfortable. Head: Normocephalic, atraumatic. Eyes: Sclera clear. Pupils equal and reactive. ENT: Mucous membranes moist. Neck: Supple without adenopathy. Heart: Regular rate and rhythm without murmur. Lungs: Clear. No increased work of breathing, crackles or wheezes. Abdomen: Soft, nondistended. Some tenderness in the left lower quadrant without rebound guarding or rigidity. Extremities: Well perfused, pulses intact. No significant edema. Neurologic: Alert, conversant. Speech fluent, face symmetric. Moves all extremities equally. Skin: Warm, dry well perfused. Affect: Normal. <Chandrika Gates MD - Last Filed: 02/18/25 17:11> Const: Vital Signs, click to edit/add: Vital Signs - 24 hr 02/05/25 06:39 02/05/25 08:37 Temperature 98 F Pulse Rate [Pulse Oximeter] 109 H 89 Respiratory Rate 16 18 Blood Pressure [Ri ght Upper Arm] 136/72 146/49 H Pulse Oximetry 95 96 Oxygen Delivery Me thod Room Air Room Air <Chandrika Gates MD - Last Filed: 02/18/25 17:11> Vital Signs, click to edit/add: Vital Signs - 24 hr 02/05/25 06:39 02/05/25 08:37 Temperature 98 F Pulse Rate [Pulse Oximeter] 109 H 89 Respiratory Rate 16 18 Blood Pressure [Ri ght Upper Arm] 136/72 146/49 H Pulse Oximetry 95 96 Oxygen Delivery Me thod Room Air Room Air <Mono Barron MD - Last Filed: 02/05/25 08:44> Course Course ED Course: Diagnostic considerations would include diverticulitis, colitis, UTI, pyelonephritis, kidney stone, bowel obstruction, hernia, among others. I think it is reasonable to do a CT scan particularly to look for diverticulitis and she has this in her past medical history and this feels similar. She is nontoxic in appearance, mildly tachycardic here but afebrile and blood pressure is normal. Abdominal exam is benign. Labs and CT pending. Will give some Toradol and a L of normal saline, await lab and imaging. I reviewed her labs, overall reassuring, CRP is elevated at 12.9, urinalysis shows a few white cells but she also has many squames and this is likely contaminant. I reviewed her CT scan, consistent with diverticulitis. CT read by Radiology reviewed and confirms diverticulitis without evidence of complication. Results discussed with her, she does wish to treat with antibiotics. I prescribed Augmentin, reasons to return discussed such as worsening abdominal pain, fevers, or other new symptoms. Follow up with primary care in 7-10 days for recheck. She is comfortable with this plan. <Chandrika Gates MD - Last Filed: 02/18/25 17:11> Vital Signs Vital signs: Initial Vital Signs Temperature 98 F 02/05/25 06:39 Temperature Source Temporal Artery Scan 02/05/25 06:39 Pulse Rate 109 H 02/05/25 06:39 Respiratory Rate 16 02/05/25 06:39 Blood Pressure 136/72 02/05/25 06:39 Blood Pressure Mean 93 02/05/25 06:39 Blood Pressure Position Sitting 02/05/25 06:39 Pulse Oximetry 95 02/05/25 06:39 Oxygen Delivery Method Room Air 02/05/25 06:39 Vital Signs Temperature 98 F 02/05/25 06:39 Pulse Rate 109 H 02/05/25 06:39 Respiratory Rate 16 02/05/25 06:39 Blood Pressure 136/72 02/05/25 06:39 Pulse Oximetry 95 02/05/25 06:39 Oxygen Delivery Method Room Air 02/05/25 06:39 Temperature 98 F 02/05/25 06:39 Pulse Rate 78 02/05/25 09:03 Respiratory Rate 20 02/05/25 09:03 Blood Pressure 138/61 02/05/25 09:03 Pulse Oximetry 96 02/05/25 09:03 Oxygen Delivery Method Room Air 02/05/25 09:03 <Chandrika Gates MD - Last Filed: 02/18/25 17:11> Initial Vital Signs Temperature 98 F 02/05/25 06:39 Temperature Source Temporal Artery Scan 02/05/25 06:39 Pulse Rate 109 H 02/05/25 06:39 Respiratory Rate 16 02/05/25 06:39 Blood Pressure 136/72 02/05/25 06:39 Blood Pressure Mean 93 02/05/25 06:39 Blood Pressure Position Sitting 02/05/25 06:39 Pulse Oximetry 95 02/05/25 06:39 Oxygen Delivery Method Room Air 02/05/25 06:39 Vital Signs Temperature 98 F 02/05/25 06:39 Pulse Rate 109 H 02/05/25 06:39 Respiratory Rate 16 02/05/25 06:39 Blood Pressure 136/72 02/05/25 06:39 Pulse Oximetry 95 02/05/25 06:39 Oxygen Delivery Method Room Air 02/05/25 06:39 Temperature 98 F 02/05/25 06:39 Pulse Rate 78 02/05/25 09:03 Respiratory Rate 20 02/05/25 09:03 Blood Pressure 138/61 02/05/25 09:03 Pulse Oximetry 96 02/05/25 09:03 Oxygen Delivery Method Room Air 02/05/25 09:03 <Mono Barron MD - Last Filed: 02/05/25 08:44> Medications Administered Medications: Discontinued Medications Generic Name Dose Route Start Last Admin Trade Name Freq PRN Reason Stop Dose Admin Sodium Chloride 1,000 mls @ 1,000 mls/hr 02/05/25 07:00 02/05/25 09:08 0.9 % Sodium Chloride 1000 Ml IV 02/05/25 07:59 0 mls/hr .Q1H RODNEY Infusion Ketorolac Tromethamine 15 mg 02/05/25 06:58 02/05/25 07:47 Ketorolac 15 Mg/Ml Inj IVP 02/05/25 06:59 15 mg ONCE ONE Administration <Chandrika Gates MD - Last Filed: 02/18/25 17:11> Discontinued Medications Generic Name Dose Route Start Last Admin Trade Name Freq PRN Reason Stop Dose Admin Sodium Chloride 1,000 mls @ 1,000 mls/hr 02/05/25 07:00 02/05/25 09:08 0.9 % Sodium Chloride 1000 Ml IV 02/05/25 07:59 0 mls/hr .Q1H RODNEY Infusion Ketorolac Tromethamine 15 mg 02/05/25 06:58 02/05/25 07:47 Ketorolac 15 Mg/Ml Inj IVP 02/05/25 06:59 15 mg ONCE ONE Administration <Mono Barron MD - Last Filed: 02/05/25 08:44> Medical Decision Making MDM Narrative Medical decision making narrative: Addendum 8:38 a.m.. The patient on CT scan has acute uncomplicated diverticulitis. Recommend the plan as outlined by Dr. Gates. Addendum 8:43 a.m.: The patient does not want Augmentin. Will prescribe Cipro and Flagyl as she had in the past. <Mono Barron MD - Last Filed: 02/05/25 08:44> Lab Data Lab results reviewed: Yes I reviewed the patient's lab results <Chandrika Gates MD - Last Filed: 02/18/25 17:11> Labs: Lab Results 02/05/25 02/05/25 Range/Units 07:02 07:30 WBC 7.66 (4.50-11.00) K/uL RBC 4.95 (4.00-5.20) m/uL Hgb 12.8 (12.0-16.0) gm/dL Hct 41.2 (33.0-51.0) % MCV 83 (80-100) fL MCH 26 (26-34) pg MCHC 31 L (32-36) gm/dL RDW Coeff of Shawna 13.6 (11.5-15.5) % Plt Count 410 (140-440) K/uL Neut % (Auto) 61.1 (42.0-72.0) % Lymph % (Auto) 27.3 (20-44) % [place] % (Auto) 8.1 (0.0-11.0) % Eos % (Auto) 1.4 (0.0-7.0) % Baso % (Auto) 0.5 (0.0-3.0) % Neut # (Auto) 4.68 (1.7-7.0) K/uL Lymph # (Auto) 2.09 (0.90-2.90) K/uL [place] # (Auto) 0.60 (0.00-0.90) K/UL Eos # (Auto) 0.11 (0.00-0.50) K/uL Baso # (Auto) 0.04 (0.00-0.30) K/uL Abs Immat Gran (auto) 0.12 (0.00-0.30) K/uL Imm/Tot Granulo (auto) 1.6 % Sodium 139 (135-149) mmol/L Potassium 3.7 (3.6-5.1) mmol/L Chloride 101 (96-114) mmol/L Carbon Dioxide 28 (20-32) mmol/L Anion Gap 10 (7-15) mEq/L BUN 24 (7-30) mg/dL Creatinine 1.0 (0.5-1.5) mg/dL Estimated Creat Clear 46.50 Estimated GFR 61 ml/min Glucose 126 H (60-115) mg/dL Calcium 10.0 (8.4-10.6) mg/dL C-Reactive Protein 12.9 H (0.5-1.0) mg/dL Urine Color Yellow (Yellow) Urine Appearance Slightly Cloudy A (Clear) Urine pH 5.5 (5.0-8.5) Ur Specific [place] 1.025 (1.000-1.030) Urine Protein 1+ A (Negative) Urine Glucose (UA) Negative (Negative) Urine Ketones Negative (Negative) Urine Blood Negative (Negative) Urine Nitrite Negative (Negative) Urine Bilirubin 1+ A (Negative) Urine Urobilinogen 0.2 (0.2-1.0) Ur Leukocyte Esterase Trace A (Negative) Urine RBC 0-2 (0-2) Urine WBC 5-10 A (0-5) Ur Squamous Epith Cells Many A (None-Few) Urine Bacteria Many A (None) Urine Mucus Many A (None) <Chandrika Gates MD - Last Filed: 02/18/25 17:11> Lab Results 02/05/25 02/05/25 Range/Units 07:02 07:30 WBC 7.66 (4.50-11.00) K/uL RBC 4.95 (4.00-5.20) m/uL Hgb 12.8 (12.0-16.0) gm/dL Hct 41.2 (33.0-51.0) % MCV 83 (80-100) fL MCH 26 (26-34) pg MCHC 31 L (32-36) gm/dL RDW Coeff of Shawna 13.6 (11.5-15.5) % Plt Count 410 (140-440) K/uL Neut % (Auto) 61.1 (42.0-72.0) % Lymph % (Auto) 27.3 (20-44) % [place] % (Auto) 8.1 (0.0-11.0) % Eos % (Auto) 1.4 (0.0-7.0) % Baso % (Auto) 0.5 (0.0-3.0) % Neut # (Auto) 4.68 (1.7-7.0) K/uL Lymph # (Auto) 2.09 (0.90-2.90) K/uL [place] # (Auto) 0.60 (0.00-0.90) K/UL Eos # (Auto) 0.11 (0.00-0.50) K/uL Baso # (Auto) 0.04 (0.00-0.30) K/uL Abs Immat Gran (auto) 0.12 (0.00-0.30) K/uL Imm/Tot Granulo (auto) 1.6 % Sodium 139 (135-149) mmol/L Potassium 3.7 (3.6-5.1) mmol/L Chloride 101 (96-114) mmol/L Carbon Dioxide 28 (20-32) mmol/L Anion Gap 10 (7-15) mEq/L BUN 24 (7-30) mg/dL Creatinine 1.0 (0.5-1.5) mg/dL Estimated Creat Clear 46.50 Estimated GFR 61 ml/min Glucose 126 H (60-115) mg/dL Calcium 10.0 (8.4-10.6) mg/dL C-Reactive Protein 12.9 H (0.5-1.0) mg/dL Urine Color Yellow (Yellow) Urine Appearance Slightly Cloudy A (Clear) Urine pH 5.5 (5.0-8.5) Ur Specific [place] 1.025 (1.000-1.030) Urine Protein 1+ A (Negative) Urine Glucose (UA) Negative (Negative) Urine Ketones Negative (Negative) Urine Blood Negative (Negative) Urine Nitrite Negative (Negative) Urine Bilirubin 1+ A (Negative) Urine Urobilinogen 0.2 (0.2-1.0) Ur Leukocyte Esterase Trace A (Negative) Urine RBC 0-2 (0-2) Urine WBC 5-10 A (0-5) Ur Squamous Epith Cells Many A (None-Few) Urine Bacteria Many A (None) Urine Mucus Many A (None) <Mono Barron MD - Last Filed: 02/05/25 08:44> Imaging Data CT scan - abdomen: Attestation: I have reviewed the pertinent imaging results. <Chandrika Gates MD - Last Filed: 02/18/25 17:11> Radiologist's impression: Patient: Radha Aguero MR#: [id number] : 1955 Acct:[id number] Loc: ED Service Date: 02/05/[address]: Ordering Physician: Chandrika Gates M.D. Date of Service: 02/05/25 Procedure(s): CT abdomen pelvis w con Accession Number(s): [id number] cc: Chandrika Gates M.D.; Provider,Not a Local~ For Patients: As a result of the Cures Act, medical imaging exams and procedure reports are released immediately into your electronic medical record. You may view this report before your referring provider. If you have questions, please contact your health care provider. INDICATION: Left lower quadrant pain. COMPARISON: 07/02/2023 TECHNIQUE: CT of the abdomen and pelvis with 150 cc of Isovue 370 intravenous contrast. Please note that all CT scans at this facility use dose modulation, iterative reconstruction, and/or weight-based dosing when appropriate to reduce radiation dose to as low as reasonably achievable. FINDINGS: ABDOMEN Liver: Normal contour. Focal fatty infiltration is noted in the left hepatic lobe adjacent to the intersegmental fissure. No significant focal lesion. No intrahepatic biliary ductal dilatation. Patent portal veins. Patent hepatic veins. Gallbladder: Cholecystectomy. Normal common duct caliber. Pancreas: Normal contour and attenuation. No peripancreatic inflammatory changes. No significant focal lesion. Normal main duct caliber. Spleen: Not enlarged. No significant focal lesion. Patent splenic artery and vein. Adrenal Glands: Symmetrical adrenal glands. No significant focal lesion. Kidneys: Normal bilateral renal attenuation. No significant focal lesion. No nephrolith. No dilatation of the intrarenal collecting systems. No ureteral stone. Nondilated ureters. Patent renal arteries and veins. Gastrointestinal tract: Sigmoid diverticulosis with focal uniform wall thickening of the mid sigmoid colon associated with pericolic inflammatory fat stranding with infiltration of the sigmoid mesentery consistent with acute uncomplicated diverticulitis. Otherwise normal caliber, attenuation and wall thickness of the gastrointestinal tract. Normal appendix. Vascular: Chronic mild aortoiliac atherosclerotic mural calcification. Abdominal aorta and its major proximal branches including the celiac, superior mesenteric, inferior mesenteric, renal, and bilateral common iliac arteries are patent. Patent superior mesenteric vein. Peritoneal Cavity/Retroperitoneum: No ascites. No adenopathy. PELVIS No bladder lesion is identified. Findings consistent with a prior supracervical hysterectomy with a remnant cervix. Please correlate with the patient`s clinical history. Small volume rectovesical free pelvic fluid. No adenopathy. SKELETON AND BODY WALL Re-demonstration of a large fat containing umbilical hernia which measures approximately 11.4 cm in greatest axial dimension (series 2; image 123). LOWER THORAX Partially included lower thoracic wall, lungs, pleural spaces and mediastinum are otherwise without significant incidental findings. IMPRESSION: 1. Acute uncomplicated diverticulitis of the sigmoid colon. Small volume rectovesical free pelvic fluid. No abscess or perforation. 2. Incidental findings detailed above. Please note that all CT scans at this facility use dose modulation, iterative reconstruction, and/or weight-based dosing when appropriate to reduce radiation dose to as low as reasonably achievable. Dictated by Jimmy Kate MD @ 02/05/2025 8:31:00 AM <Chandrika Gates MD - Last Filed: 02/18/25 17:11> Discharge Plan Discharge Clinical Impression: Diverticulitis <Chandrika Gates MD - Last Filed: 02/18/25 17:11> Patient Disposition: Home, Self-Care <Chandrika Gates MD - Last Filed: 02/18/25 17:11> Condition: Stable <Chandrika Gates MD - Last Filed: 02/18/25 17:11> Instructions: Diverticulitis (DC) <Chandrika Gates MD - Last Filed: 02/18/25 17:11> Additional Instructions: Take Augmentin as prescribed. As we discussed, most people with uncomplicated diverticulitis improve, however even with antibiotics sometimes people get worse. If you have more severe pain, high fevers, vomiting, bloody stools or other significant changes, return to the emergency department for re-evaluation. Otherwise, I recommend follow-up with your primary clinic in the next 1-2 weeks for recheck. [place] diet recommended until you are feeling better. <Chandrika Gates MD - Last Filed: 02/18/25 17:11> Prescriptions: New ciprofloxacin HCl [Cipro] 500 mg tablet 500 mg PO BID Qty: 20 0RF metronidazole 500 mg tablet 500 mg PO BID 10 Days Qty: 20 0RF No Action losartan 50 mg tablet 75 mg PO DAILY <Chandrika Gates MD - Last Filed: 02/18/25 17:11> Follow Up/Referrals: Provider,Not a Local [Primary Care Provider, Family Practice] <Chandrika Gates MD - Last Filed: 02/18/25 17:11> Stand Alone Forms: MyHealth Info Instructions <Chandrika Gates MD - Last Filed: 02/18/25 17:11>
[2025-02-05 07:42] LABS: RBC Urine 0-2 (0-2)
[2025-02-05 07:43] LABS: Bacteria Urine Many; Mucus Urine Many; Squamous Epithelial Cell Urine Many (None-Few)
[2025-02-05] MEDS: KETOROLAC 15 MG/ML inj IVP (07:47)
[2025-02-05] MEDS: 0.9 % SODIUM CHLORIDE 1000 ml 1,000 ML IV (07:48)
[2025-02-05 07:49] LABS: Slide Review Reflex No
[2025-02-05 07:53] LABS: Chloride* 101 mmol/L (96-114); Sodium* 139 mmol/L (135-149)
[2025-02-05 07:54] LABS: Potassium* 3.7 mmol/L (3.6-5.1)
[2025-02-05 07:56] LABS: Anion Gap 10 mEq/L (7-15); Carbon Dioxide* 28 mmol/L (20-32)
[2025-02-05 07:57] LABS: Blood Urea Nitrogen* 24 mg/dL (7-30); Estimated Glomerular Filt Rate 61 ml/min; Glucose* 126 mg/dL (60-115)
[2025-02-05 08:13] LABS: C Reactive Protein* 12.9 mg/dL (0.5-1.0)
[2025-02-05 08:37] VITALS: BP 146/49; PULSE 89; RESP 18; O2SAT 96
[2025-02-05 09:03] VITALS: BP 138/61; PULSE 78; RESP 20; O2SAT 96
== END 2025-02-05 09:11 | disposition home or self-care (01) ==
PROVIDERS: Emergency Provider Emergency Medicine
DX: K57.32 Diverticulitis of large intestine without perforation or abscess without bleeding (principal)
CPT/HCPCS: 36415; 74177; 80048; 81001; 85025; 86140; 87086; 96374; 99284; J1885; J7030; Q9967